=== PATIENT | male | born 1965 | race Caucasian/White ===

== ENCOUNTER 2016-09-05 11:26 | Emergency (ER) | payer OTHER ==
[~2016-09-05] VITALS: Ht 182.9 cm; Wt 87.5 kg
[~2016-09-05 11:26] MED LIST: ATV5 SL; DRGTP25 TD; NCDT21 TD; RXNS5 PO
[2016-09-05 11:30] VITALS: TEMP 36.8; Ht 182.9 cm; Wt 87.5 kg
[2016-09-05] MEDS ORDERED: VNTHFA/IN INH (11:43)
[2016-09-05] MEDS ORDERED: LORA-741 PO (11:43)
--- NOTE | 2016-09-05 12:43 | EMERGENCY ROOM VISIT NOTE ---
History Report prepared by Carlos: Francisco Canales Under the Supervision of: Dr. Kenyon Gutierrez M.D. First contact with patient: 12:18 Chief Complaint: FOOD BOLUS Stated Complaint: FOOD BOLUS/ BROCCOLI FROM YESTERDAY Nursing Triage Summary: pt to the ED via EMS from home after yesterday pt was eating broccoli around 5 pm and felt it get stuck. pt has a trach in place and stated that this has happened before and normally if he lays down he can cough it up but was unable to pt has no resp distress pt point to the area near his trach as to where the food feels stuck pt able to speak with trach in place. pt has a vibrating sound with auscultation of breath sounds History of Present Illness The patient is a 51 year old male who presents to the Emergency Room with complaints of an acute food bolus that is stuck in posterior pharynx. The patient was eating broccoli last night when he noticed that it felt like a piece was stuck in the upper portion of his throat, almost behind the nose. The patient does not feel like anything is stuck in his esophagus. He is able to drink and swallow, and is not having any trouble breathing or shortness of breath. The patient did not eat this morning because of his discomfort. 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 He has had radiation and chemotherapy treatments and is currently in remission. The patient has had issues with food boluses before, which he usually is able to clear on his own. The patient has had numerous endoscopies. The patient follows up with ENT at [facility]. He does not follow up with a [employer]. He has not been in contact with his ENT. Source of History: patient Onset: last night Position: throat (posterior pharynx) Quality: other (food bolus) Timing: other (acute) Associated Symptoms: No SOB Review of Systems See HPI for pertinent positives & negatives. A total of 10 systems reviewed and were otherwise negative. Past Medical & Surgical Medical Problems: (1) Squamous cell carcinoma of epiglottis Family History No pertinent family history Social History Smoking Status: Current Every Day Smoker Drug Use: none Housing Status: lives with family Current/Historical Medications Scheduled Albuterol Hfa (Ventolin Hfa), 2 PUFFS INH DAILY Scheduled PRN Lorazepam (Ativan), 0.5 MG PO Q6H PRN for Anxiety Allergies Coded Allergies: No Known Allergies (Unverified , 03/16/15) Physical Exam Vital Signs Date Time Temp Pulse Resp B/P Pulse Ox O2 Delivery O2 Flow Rate FiO2 09/05/16 14:55 73 16 140/92 94 Room Air 09/05/16 13:46 69 16 117/99 95 Room Air 09/05/16 11:43 70 09/05/16 11:30 36.8 70 16 141/95 98 Room Air Physical Exam GENERAL: Patient is well appearing and in minimal distress. HEENT: No acute trauma, normocephalic atraumatic, mucous membranes moist, no nasal congestion, no scleral icterus. Posterior pharyngeal erythema, no foreign body appreciated. NECK: Trach in place. Scarring and radiation romeo over the anterior neck. LUNGS: No dyspnea. Upper airway noises bilaterally. No wheeze, no rhonchi. HEART: Regular rate and rhythm. No murmurs, rubs, gallops appreciated. ABDOMEN: Soft, nontender, bowel sounds positive, no masses appreciated, no peritonitis. BACK: No midline tenderness, no CVA tenderness EXTREMITIES: Normal motion all extremities, no cyanosis, no edema. NEUROLOGIC: Alert and oriented, no acute motor or sensory deficits, no focal weakness, cranial nerves grossly intact. SKIN: No rash, no jaundice, no diaphoresis. Medical Decision & Procedures Medications Administered Medications (Trade) Dose Ordered Sig/Avila Route Start Time Stop Time Status Last Admin Dose Admin Phenylephrine HCl 2 sprays ONE ONCE NA 09/05/16 13:00 09/05/16 13:01 DC 09/05/16 13:32 2 SPRAYS Sterile Water/ Tetracaine HCl (Sterile Water Inj/Tetracaine HCl Pwd) 1300 ONCE TOP 09/05/16 13:00 09/05/16 13:01 DC 09/05/16 13:33 1 ML Benzocaine/ Butamben/ Tetracaine HCl (Cetacaine Can) 1 appln NOW STAT EXT 09/05/16 13:04 09/05/16 13:05 DC 09/05/16 13:04 1 APPLN Procedure Nasopharyngoscopy Indication: possible foreign body. Risks and benefits were explained with the usual customary discussion. A time out was taken and the correct patient and site identified. The patient's nares were anesthetized with topical Tetracaine and phenylephrine. The ACCESS LIAISON scope was inserted in the standard fashion and the nasopharynx and vallecula were without difficulty. No foreign bodies noted. Diffuse mild erythema and some secretions noted. No complications. Patient tolerated the procedure well. ED Course 1218: The patient was evaluated in room B2. A complete history and physical exam was performed. 1229: Otolaryngology paged. 1233: Discussed the case with MOISES Moreno. He notes that there is a scope in the ED that should be used by an ED physician. 1300: Sterile water / Tetracaine HCl, Phenylephrine HCl 2 sprays NA. 1304: Cetacaine Can 1 application EXT. 1322: Nasopharyngoscopy performed. Please see procedural note above. 1414: Checked on the patient. Respiratory was seeing him. 1450: The patient is feeling fine and wants to go home. He will set up follow up outpatient appointment with his ENT. Medical Decision Pleasant 51 yr old male who feels like there is foreign body in posterior upper pharynx. History of epiglottic ca s/p surgical resection, tracheostomy, radiation/chemo now in remission. Notes eating last night and since with feeling of food stuck in upper pharynx. Exam with erythema of uvula and some posterior pharyngeal erythema. Nasopharyngoscopy of bilateral nares negative for foreign body and clear to cords. No stridor and breathing well. Monitored for quite some time without issue. He is stable, breathing comfortably. Discussed abx/steroids though will hold off for now. Consults Time Called: 122 Consulting Physician: Dr. Chávez ENT. Returned Call: [phone]: Discussed the case with Dr. Chávez ENT. He notes that there is a scope in the ED that should be used by an ED physician. Impression Primary Impression: Uvulitis Additional Impression: Pharyngitis, acute Scribe Attestation The scribe's documentation has been prepared under my direction and personally reviewed by me in its entirety. I confirm that the note above accurately reflects all work, treatment, procedures, and medical decision making performed by me. Departure Information Dispostion Home / Self-Care Referrals No Doctor, Assigned (PCP) Forms HOME CARE DOCUMENTATION FORM, IMPORTANT VISIT INFORMATION Patient Instructions ED Pharyngitis Viral, My [facility] Additional Instructions Follow up with your ENT specialist. Problem Qualifiers Additional Impression: Pharyngitis, acute Pharyngitis/tonsillitis etiology: unspecified etiology Qualified Codes: J02.9 - Acute pharyngitis, unspecified
[2016-09-05] MEDS ORDERED: PHENYLEPHRINE HCL 0.5% NA SPRAY 15 ML BTL ONE (13:00)
[2016-09-05] MEDS ORDERED: TETRACAINE 4% TOPICAL SOLUTION TOP ONE ×4 (13:00)
[2016-09-05] MEDS ORDERED: BENZOCAINE/TETRACAIN/BUTAM CAN 200 APPLN/20 GM CAN EXT STA (13:04)
[2016-09-05] MEDS ORDERED: TETRACAINE 4% SOLN TOP ONE (13:30)
[2016-09-05 14:55] VITALS: BP 140/92; PULSE 73; O2SAT 94
== END 2016-09-05 14:59 | disposition home or self-care (01) ==
LOC: EDBD 11:26 → C.EDB 11:27
DX: K12.2 Cellulitis and abscess of mouth (principal); J02.9 Acute pharyngitis, unspecified; Z85.89 Personal history of malignant neoplasm of other organs and systems; F17.210 Nicotine dependence, cigarettes, uncomplicated

== ENCOUNTER 2024-04-09 11:56 | Inpatient (IN) ==
--- NOTE | 2024-04-09 12:24 | Emergency Department Note ---
Impression & Plan Acute exacerbation of chronic obstructive pulmonary disease, Hypoxia, Thrombocytopenia ED Provider Note NAME: KECIA MILLS Sr AGE: 58 SEX: M : 1965 ARRIVES VIA: Walk-In INFORMANT: Patient, ED PROVIDER(S): Regulo Nathan DO CHIEF COMPLAINT: Shortness of breath HPI: The patient is a 58-year-old male who has a history of head neck cancer who presented to the emergency department for an evaluation of shortness of breath. The patient has been noticing exertional shortness of breath over the course the last several days. He went to see his family doctor today and was sent directly to the emergency department because of hypoxia. The patient denies having any tobacco use. He has noticed some sputum production with slight blood mixed in with it. He does have a history of a trach which has been in for several years. He denies having any fever. He denies having any lower extremity swelling or pain. The patient states he has been compliant with outpatient medications. He does not normally wear oxygen at home but has it available and sometimes has to wear it at night. ROS: See above HPI for pertinent positives & negatives. A total of 10 systems reviewed and were otherwise negative. PAST MEDICAL HISTORY: See Below PAST SURGICAL HISTORY: See Below FAMILY HISTORY: See Below SOCIAL HISTORY: See Below HOME MEDICATIONS: See Below ALLERGIES: See Below VITALS: See Below PHYSICAL EXAMINATION: GENERAL: Patient is awake alert in no acute distress patient is resting comfortably and showing no signs of anxiety EYES: The conjunctivae are clear. The pupils are round and reactive. EARS, NOSE, MOUTH AND THROAT: The nose is without any evidence of any deformity. NECK: The neck is nontender and supple. RESPIRATORY: Diminished breath sounds are noted throughout. Faint wheezing was noted in both upper lung rea. There was no tachypnea or conversational dyspnea. CARDIOVASCULAR: Regular rate and rhythm noted there no murmurs rubs or gallops normal S1 normal S2. GASTROINTESTINAL: The abdomen is soft. Abdomen is nontender. MUSCULOSKELETAL/EXTREMITIES: There is no evidence of gross deformity full range of motion is noted in the hips and shoulders. SKIN: There is no obvious evidence of any rash. There are no petechiae, pallor or cyanosis noted. NEUROLOGIC: Patient is awake alert and oriented x3. MEDICAL DECISION MAKING: The patient is a 58-year-old male who has a history of head neck cancer who presented to the emergency department for an evaluation of difficulty breathing. Patient's history and physical exam appear to be consistent with COPD exacerbation. He also has a productive cough. Given his history of tracheostomy and bronchitis he was treated with IV antibiotics. He was also treated with IV steroids IV fluids and bronchodilator therapy. He was reevaluated multiple times. On reevaluation he was significantly improved but still has an oxygen requirement. I [facility] the [facility] They have agreed to evaluate the patient in the emergency department for further management and disposition. Triage Nursing notes reviewed. Prior medical records reviewed Vital Signs: reviewed and remarkable for hypoxia. Differential diagnosis: Reactive airway disease, pneumonia, pneumothorax, COPD, CHF, infections, cardiac ischemia, pulmonary embolism, musculoskeletal, gastrointestinal, as well as other pathologies. ER treatment provided: See below Diagnostics interpreted by me: ECG: EKG was obtained in the emergency department. My interpretation is normal sinus rhythm at 73 bpm. There is no ectopy. Poor R wave progression was noted. This was compared to a tracing from November 30, 2021. No changes were noted. Cardiac Monitoring: An order was placed for continuous cardiac monitoring. The monitor shows a rate of 80 bpm with sinus rhythm. Laboratory studies: As stated above and show below. Imaging studies: See below. Radiographic imaging was reviewed by myself Consultation(s): I discussed this case with Dr. Robbins who is [facility]. ED COURSE: Procedures: none Critical Care: I have personally spent greater than 45 minutes of critical care time in the direct management of this patient. This includes bedside care, interpretation of diagnostic studies, and testing, discussion with consultants, patient, and family members, and other required patient management activities. This 45 minutes is in excess of all separately billable procedures. Past Med/Surg History Problem List (Updated 04/09/24 @ 19:38 by Regulo Nathan DO) Thrombocytopenia (Acute) Hypoxia (Acute) Acute exacerbation of chronic obstructive pulmonary disease (Acute) Pneumonia Hypopharyngeal mass (Acute) Throat mass (Acute) Throat swelling (Acute) 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 Hx of fracture of ankle Lt., no sx. Hypothyroidism Tracheostomy in place D/T THROAT CANCER/TUMOR TREATED WITH CHEMO AND RADIATION (NO SURGERY REQUIRED) 6.0 SHILEY WITH INNER CANNULAS (NO OXYGEN) CANNULA CHANGED EVERY MORNING/NO SUCTION REQUIRED Depression Anxiety Chronic obstructive pulmonary disease Surgical History Hx of cholecystectomy History of esophagogastroduodenoscopy (EGD) History of surgery PEG TUBE INSERTION/REMOVAL History of vascular access device FOR CHEMO TX INSERTION/REMOVAL History of tooth extraction Family History Mother Family history of diabetes mellitus Father Family hx of colon cancer Social History Smoking Status: Former smoker Cigarettes Per Day: 10 PER DAY -advised; Second Hand Exposure: No; Do You Dip or Chew Tobacco: No; Hx Alcohol Use: Yes Alcohol type: beer and hard liquor Hx Substance Use: Yes Last Used Substance Other:: marijuana-12/20; cocaine-"a long time ago" Preferred Language: Libyan Communication Ability: Effective Bead Stringer Required: No Beliefs That Will Affect Care: None Current Living Situation: Significant Other Feels Safe at Home: Yes Safety Concerns: Feels Safe At This Time Assistive Devices: Denture - Upper, Denture - Lower and Glasses Allergies Allergies Allergy/AdvReac Type Severity Reaction Status Date / Time No Known Allergies Allergy Verified 04/09/24 14:00 Home Meds Home Medications Medication Instructions Recorded Confirmed albuterol sulfate 90 mcg/actuation 2 puff inhalation QID PRN SHORT OF 12/30/18 04/09/24 aerosol inhaler (Ventolin HFA) BREATH levothyroxine 137 mcg tablet 137 mcg PO QAM 12/30/18 04/09/24 albuterol sulfate 1.25 mg/3 mL 1.25 mg inhalation Q4H PRN 05/24/22 04/09/24 solution for nebulization Shortness Of Breath Or Wheezing buspirone 5 mg tablet 5 mg PO BID 05/24/22 04/09/24 citalopram 20 mg tablet 20 mg PO QAM 05/24/22 04/09/24 fluticasone 500 mcg-salmeterol 50 1 inh inhalation BID 05/24/22 04/09/24 mcg/dose blistr powdr for inhalation fluticasone propionate 50 2 spray intranasal QAM 05/24/22 04/09/24 mcg/actuation nasal spray,suspension hydroxychloroquine 200 mg tablet 400 mg PO HS 05/24/22 04/09/24 (Plaquenil) hydroxyzine HCl 50 mg tablet 50 mg PO BID PRN Anxiety 05/24/22 04/09/24 ondansetron HCl 4 mg tablet 4 mg PO Q8H PRN Nausea 05/24/22 04/09/24 furosemide 20 mg tablet 20 mg PO BID 04/09/24 04/09/24 spironolactone 25 mg tablet 12.5 mg PO QAM 04/09/24 04/09/24 Previous Rx's Medication Instructions Recorded oxycodone-acetaminophen 5 mg-325 1 tab PO Q6H PRN pain #14 tabs 01/15/ mg tablet (Percocet) Results & Data (ED) Vital Signs Vital Signs - 24 hr 04/09/24 11:58 04/09/24 12:50 04/09/24 12:51 Temperature 36.5 C Temperature Source Temporal Artery Scan Pulse Rate 80 Pulse Rate from SpO2 Sensor Respiratory Rate 20 22 Respiratory Effort / Characteristics Non-Labored Spontaneous Non-Labored Spontaneous Respiratory Depth Normal Normal Blood Pressure 129/63 Blood Pressure Mean 85 Blood Pressure Position Sitting Pulse Oximetry 83 L 91 Oxygen Delivery Method Room Air Nasal Cannula Oxygen Flow Rate 3.5 Sepsis Recent Fever Within 48 Hours No Sepsis New/Unexplained Change in Mental Status No Sepsis Action Taken by Nursing No Action Required 04/09/24 12:51 04/09/24 13:00 04/09/24 13:05 Temperature Temperature Source Pulse Rate 72 74 Pulse Rate from SpO2 Sensor 74 Respiratory Rate 18 Respiratory Effort / Characteristics Respiratory Depth Blood Pressure 114/72 Blood Pressure Mean 97 Blood Pressure Position Pulse Oximetry 91 Oxygen Delivery Method Oxygen Flow Rate Sepsis Recent Fever Within 48 Hours Sepsis New/Unexplained Change in Mental Status Sepsis Action Taken by Nursing 04/09/24 13:29 04/09/24 13:33 04/09/24 13:51 Temperature Temperature Source Pulse Rate 71 72 72 Pulse Rate from SpO2 Sensor 71 72 72 Respiratory Rate 21 19 14 Respiratory Effort / Characteristics Respiratory Depth Blood Pressure Blood Pressure Mean Blood Pressure Position Pulse Oximetry 95 95 96 Oxygen Delivery Method Oxygen Flow Rate Sepsis Recent Fever Within 48 Hours Sepsis New/Unexplained Change in Mental Status Sepsis Action Taken by Nursing 04/09/24 14:06 04/09/24 14:12 04/09/24 14:21 Temperature Temperature Source Pulse Rate 71 74 75 Pulse Rate from SpO2 Sensor 72 75 75 Respiratory Rate 16 14 23 Respiratory Effort / Characteristics Respiratory Depth Blood Pressure Blood Pressure Mean Blood Pressure Position Pulse Oximetry 94 95 94 Oxygen Delivery Method Oxygen Flow Rate Sepsis Recent Fever Within 48 Hours Sepsis New/Unexplained Change in Mental Status Sepsis Action Taken by Nursing 04/09/24 14:30 04/09/24 14:42 Temperature Temperature Source Pulse Rate 73 76 Pulse Rate from SpO2 Sensor 73 76 Respiratory Rate 18 Respiratory Effort / Characteristics Respiratory Depth Blood Pressure Blood Pressure Mean Blood Pressure Position Pulse Oximetry 94 92 Oxygen Delivery Method Nasal Cannula Oxygen Flow Rate 2 Sepsis Recent Fever Within 48 Hours Sepsis New/Unexplained Change in Mental Status Sepsis Action Taken by Custodial Medications Current Medication List: was personally reviewed by me Laboratory Data Attestation: I reviewed the patient's lab results. 04/09/24 12:44 04/09/24 12:44 Lab Results 04/09/24 04/09/24 Range/Units 12:44 12:45 WBC 7.69 (4.8-10.8) K/ul RBC 5.37 (4.70-6.10) M/uL Hgb 13.9 L (14.0-18.0) g/dl Hct 43.8 (42.0-52.0) % MCV 81.6 (80.0-100.0) fL MCH 25.9 (25.0-34.0) pg MCHC 31.7 L (32.0-36.0) g/dL RDW Std Deviation 53.9 H (36.4-46.3) fL RDW Coeff of Korin 18.9 H (11.5-14.5) % Plt Count 114 L (130-400) K/uL MPV 11.2 (9.4-12.4) fL Immature Gran % (Auto) 0.3 % Neut % (Auto) 80.5 % Lymph % (Auto) 6.2 % Ralls % (Auto) 10.9 % Eos % (Auto) 1.4 % Baso % (Auto) 0.7 % Neut # (Auto) 6.19 (1.40-6.50) K/uL Lymph # (Auto) 0.48 L (1.20-3.40) K/uL Ralls # (Auto) 0.84 H (0.11-0.59) K/uL Eos # (Auto) 0.11 (0.00-0.50) K/uL Baso # (Auto) 0.05 (0.00-0.20) K/uL Immature Gran # (Auto) 0.02 (0.01-0.20) K/uL PT 12.1 H (9.0-12.0) Seconds INR 1.1 (0.9-1.1) APTT 30 (21-31) Seconds PTT Ratio 1.1 VBG pH 7.44 H (7.36-7.41) VBG pCO2 50 (38-50) mmHg VBG pO2 33 mmHg VBG HCO3 34 mmol/L VBG O2 Saturation < 60.0 % VBG Base Excess 8.3 mEq/L Sodium 136 (136-145) mmol/L Potassium 3.7 (3.5-5.1) mmol/L Chloride 95 L (98-107) mmol/L Carbon Dioxide 32 (21-32) mmol/L Anion Gap 9 (3-11) BUN 9 (6-23) mg/dl Creatinine 0.98 (0.6-1.4) mg/dl Est Cr Clr Drug Dosing 102.5 ml/min eGFR 90.50 BUN/Creatinine Ratio 9.2 L (10-20) Glucose 98 (70-99(Fasting)) mg/dl Lactate 0.9 (0.4-2.0) mmol/L Calcium 9.4 (8.6-10.3) mg/dl Magnesium 1.6 L (1.7-2.4) mg/dl Total Bilirubin 1.2 H (0.2-1.0) mg/dl Direct Bilirubin 0.4 H (0-0.2) mg/dl AST 15 (13-39) U/L ALT 6 L (7-52) U/L Alkaline Phosphatase 265 H (34-104) U/L Troponin I High Sens 3.5 (0-20) pg/ml Total Protein 8.1 (6.0-8.3) gm/dl Albumin 4.1 (3.4-5.0) gm/dl Procalcitonin 0.10 (0-0.5) ng/ml Adenovirus (PCR) Not Detected (NotDetected) B. pertussis DNA (PCR) Not Detected (NotDetected) B.parapertussis DNA PCR Not Detected (NotDetected) C. pneumoniae DNA (PCR) Not Detected (NotDetected) Coronavirus OC43 (PCR) Not Detected (NotDetected) Coronavirus HKU1 (PCR) Not Detected (NotDetected) Coronavirus 229E (PCR) Not Detected (NotDetected) SARS-CoV-2 (PCR) Not Detected (NotDetected) Coronavirus NL63 (PCR) Not Detected (NotDetected) Human Metapneumovir PCR Not Detected (NotDetected) Influenza Type A (PCR) Not Detected (NotDetected) Influenza Type B (PCR) Not Detected (NotDetected) M. pneumoniae (PCR) Not Detected (NotDetected) Parainfluenza 1 (PCR) Not Detected (NotDetected) Parainfluenza 2 (PCR) Not Detected (NotDetected) Parainfluenza 3 (PCR) Not Detected (NotDetected) Parainfluenza 4 (PCR) Not Detected (NotDetected) RSV (PCR) Not Detected (NotDetected) Entero/Rhino (PCR) Not Detected (NotDetected) Administered Medications Magnesium Sulfate/Dextrose (Magnesium Sulfate / D5w) 1 gm in 100 mls @ 50 mls/hr IV Q2H RENATA Stop: 04/09/24 20:44 Last Admin: 04/09/24 18:42 Dose: 50 mls/hr Documented By: MLK Discontinued Medications Albuterol (Albut/Ipratrop 3mg/0.5mg Neb 3 Ml Vial) 3 ml NEB NOW STA; Protocol Stop: 04/09/24 12:18 Last Admin: 04/09/24 12:46 Dose: 3 ml Documented By: BCN Dexamethasone Sodium Phosphate (DexamethasonePf 10 Mg/Ml Vial) 10 mg IV NOW ONE Stop: 04/09/24 12:18 Last Admin: 04/09/24 12:46 Dose: 10 mg Documented By: RADHA Sodium Chloride (Nss) 1,000 mls @ 999 mls/hr IV .Q1H1M ONE Stop: 04/09/24 13:22 Last Infusion: 04/09/24 13:48 Dose: Infused Documented By: Admin: 04/09/24 12:46 Dose: 999 mls/hr Documented By: RADHA Ceftriaxone Sodium (Rocephin) 2,000 mg in 50 mls @ 100 mls/hr IV NOW STA Stop: 04/09/24 14:42 Last Infusion: 04/09/24 15:19 Dose: Infused Documented By: Admin: 04/09/24 14:35 Dose: 100 mls/hr Documented By: RADHA Doxycycline Hyclate 100 mg/ (Dextrose) 100 mls @ 50 mls/hr IV NOW STA Stop: 04/09/24 18:38 Last Admin: 04/09/24 18:41 Dose: 50 mls/hr Documented By: ZULAY Imaging Data Attestation: I personally reviewed and interpreted this imaging study as follows: My Impression: 1 view x-ray was obtained in the emergency department. My interpretation is cardiomegaly, final report below. Radiologist's Impression: Chest X-Ray 04/09/24 12:17 XR chest 1V portable HISTORY: 58 years-old Male Sepsis COMPARISON: 03/25/2015 TECHNIQUE: AP view of the chest FINDINGS: Interval removal of the right-sided PICC. Stable positioning of the tracheostomy cannula. Mild cardiomegaly. Pulmonary vascular congestion with interstitial coarsening. Lateral right mid lung interstitial opacities. There is a persistent layering right pleural effusion with right basilar predominant consolidation. Resolution of the left pleural effusion with improved left basilar aeration. Bones appear grossly intact. IMPRESSION: 1. Resolution of the previously noted left pleural effusion with improved left basilar consolidation. 2. Cardiomegaly with pulmonary vascular congestion. 3. Persistent layering right pleural effusion with right basilar consolidation. ACT 112: Negative or not required by law. The above report was generated using voice recognition software. It may contain grammatical, syntax or spelling errors. Electronically signed by: Ambrocio Watkins M.D. 04/09/2024 1:10 PM Discharge Plan Visit Data Chief Complaint: Referred by Doctor Stated Complaint: LOW OXYGEN LEVELS ED Provider: Regulo Nathan Discharge Problem: Acute exacerbation of chronic obstructive pulmonary disease, Hypoxia, Thrombocytopenia Patient Disposition: Admitted As Inpatient Discharge Instructions Interventions: ED Discharge Assessment Last Done: 04/09/24 17:05
[2024-04-09] MEDS: dexAMETHasone**PF** 10 MG/ML VIAL IV ONE (12:46)
[2024-04-09] MEDS: ALBUT/IPRATROP 3MG/0.5MG NEB 3 ML VIAL NEB STA (12:46)
[2024-04-09] MEDS: SODIUM CHLORIDE 0.9% 1,000 ML IV ONE (12:46)
[2024-04-09 12:53] LABS: Base Excess VBG 8.3 mEq/L; HCO3 VBG 34 mmol/L; Oxygen Saturation VBG < 60.0 %; PCO2 VBG 50 mmHg (38-50); PO2 VBG 33 mmHg; pH VBG 7.44 (7.36-7.41)
--- NOTE | 2024-04-09 13:11 | XRay Report ---
XR chest 1V portable HISTORY: 58 years-old Male Sepsis COMPARISON: 03/25/2015 TECHNIQUE: AP view of the chest FINDINGS: Interval removal of the right-sided PICC. Stable positioning of the tracheostomy cannula. Mild cardio megaly. Pulmonary vascular congestion with interstitial coarsening. Lateral right mid lung interstiti al opacities. There is a persistent layering right pleural effusion with right basilar predominant co nsolidation. Resolution of the left pleural effusion with improved left basilar aeration. Bones appea r grossly intact. IMPRESSION: 1. Resolution of the previously noted left pleural effusion with improved left basilar consolidation. 2. Cardiomegaly with pulmonary vascular congestion. 3. Persistent layering right pleural effusion with right basilar consolidation. ACT 112: Negative or not required by law. The above report was generated using voice recognition software. It may contain grammatical, syntax o r spelling errors. Electronically signed by: Ambrocio Watkins M.D. 04/09/2024 1:10 PM
[2024-04-09 13:27] LABS: Basophils # (auto) 0.05 K/uL (0.00-0.20); Basophils % (auto) 0.7 %; Eosinophils # (auto) 0.11 K/uL (0.00-0.50); Eosinophils % (auto) 1.4 %; Hematocrit (blood only) 43.8 % (42.0-52.0); Hemoglobin 13.9 g/dl (14.0-18.0); Immature Granulocytes # (auto) 0.02 K/uL (0.01-0.20); Immature Granulocytes % (auto) 0.3 %; Lymphocytes # (auto) 0.48 K/uL (1.20-3.40); Lymphocytes % (auto) 6.2 %; Mean Corpuscular Hemoglobin 25.9 pg (25.0-34.0); Mean Corpuscular Hgb Conc 31.7 g/dL (32.0-36.0); Mean Corpuscular Volume 81.6 fL (80.0-100.0); Mean Platelet Volume 11.2 fL (9.4-12.4); Monocytes # (auto) 0.84 K/uL (0.11-0.59); Monocytes % (auto) 10.9 %; Neutrophils # (auto) 6.19 K/uL (1.40-6.50); Neutrophils % (auto) 80.5 %; Platelet Count 114 K/uL (130-400); RDW Coefficient of Variation 18.9 % (11.5-14.5); RDW Standard Deviation 53.9 fL (36.4-46.3); Red Blood Count 5.37 M/uL (4.70-6.10); White Blood Count 7.69 K/ul (4.8-10.8)
[2024-04-09 13:32] LABS: Albumin Level 4.1 gm/dl (3.4-5.0); BUN Creatinine Ratio 9.2 (10-20); Bilirubin Direct 0.4 mg/dl (0-0.2); Bilirubin,Total 1.2 mg/dl (0.2-1.0); Calcium 9.4 mg/dl (8.6-10.3); Creatinine Clr Calc Pharmacy 102.5 ml/min; Magnesium 1.6 mg/dl (1.7-2.4); Potassium 3.7 mmol/L (3.5-5.1); Total Protein 8.1 gm/dl (6.0-8.3)
[2024-04-09 13:37] LABS: Troponin I High Sensitivity 3.5 pg/ml (0-20)
[2024-04-09 13:43] LABS: INR 1.1 (0.9-1.1); Partial Thromboplastin Ratio 1.1; Partial Thromboplastin Time 30 Seconds (21-31); Prothrombin Time 12.1 Seconds (9.0-12.0)
[2024-04-09 13:56] LABS: Adenovirus PCR Not Detected (NotDetected); Bordetella parapertussis PCR Not Detected (NotDetected); Bordetella pertussis PCR Not Detected (NotDetected); Chlamydia pneumoniae PCR Not Detected (NotDetected); Coronavirus 229E PCR Not Detected (NotDetected); Coronavirus CoV-2 (COVID19)PCR Not Detected (NotDetected); Coronavirus HKU1 PCR Not Detected (NotDetected); Coronavirus NL63 PCR Not Detected (NotDetected); Coronavirus OC43PCR Not Detected (NotDetected); Human Metapneumovirus PCR Not Detected (NotDetected); Influenza A PCR Not Detected (NotDetected); Influenza B PCR Not Detected (NotDetected); Mycoplasma pneumoniae PCR Not Detected (NotDetected); Parainfluenza Virus 1 PCR Not Detected (NotDetected); Parainfluenza Virus 2 PCR Not Detected (NotDetected); Parainfluenza Virus 3 PCR Not Detected (NotDetected); Parainfluenza Virus 4 PCR Not Detected (NotDetected); Respiratory Syncytial VirusPCR Not Detected (NotDetected); Rhinovirus/Enterovirus PCR Not Detected (NotDetected)
[2024-04-09] MEDS: cefTRIAXone SODIUM 2,000 MG/50 ML BAG IV STA (14:35)
--- NOTE | 2024-04-09 14:42 | Electrocardiogram Report ---
Test Reason : Blood Pressure : */* mmHG Vent. Rate : 73 BPM Atrial Rate : 73 BPM P-R Int : 172 ms QRS Dur : 108 ms QT Int : 412 ms P-R-T Axes : 42 67 34 degrees QTcB Int : 453 ms Normal sinus rhythm Possible Old Anteroseptal infarct Abnormal ECG No previous ECGs available Confirmed by Raúl Sandra ([id number]) on 04/09/2024 2:42:20 PM Referred By: REFERRED SELF Confirmed By: Raúl Sandra
[2024-04-09] MEDS ORDERED: ONDANSETRON INJ 2 MG/ML 2 ML VIAL IV PRN (15:07)
[2024-04-09] MEDS ORDERED: MAGNESIUM HYDROXIDE SUSP 30 ML UDC PO PRN (15:07)
[2024-04-09] MEDS ORDERED: ALUMINUM/MAGNESIUM SUSP 30 ML UDC PO PRN (15:07)
[2024-04-09] MEDS ORDERED: POLYETHYLENE (MIRALAX) 17 GM PACK PO PRN (15:07)
[2024-04-09] MEDS ORDERED: ALBUTEROL HFA 8 GM INHALER INH PRN (15:25)
--- NOTE | 2024-04-09 15:26 | History & Physical Report ---
Date of Service April 09, 2024 Assessment & Plan (1) Pneumonia: Plan Likely right lower lobe pneumonia Right pleural effusion Possible mild COPD exacerbation Patient comes in with cough with greenish blood-tinged sputum and associated shortness of breath for about a week time, admitting CXR with RLL consolidation and right pleural effusion. Patient needing oxygen continuously lately, generally uses on and off at his baseline. Received Rocephin in the ED, will continue Rocephin, add doxycycline and probiotic. Add prednisone 40 Mg daily for 5 days from tomorrow, received dexamethasone in the ED. Respiratory BioFire negative. send sputum cx. follow admitting bl cx. Consult pulmonology Patient will need repeat chest imaging in about 6 weeks time to document resolution of pneumonia. Hypomagnesemia: Magnesium of 1.6 at presentation, replete total of 2 g magnesium today. Abnormal LFT, likely chronic, repeat LFT in AM. Other chronic medical conditions: Continue with/resume home meds as and when able. DVT prophylaxis: Heparin subcu DNI/DNI History of Present Illness Chief Complaint: Cough productive of greenish sputum, blood-tinged sputum Primary Care Provider: Eder Mittal MD 58-year-old male with PMH of head and neck cancer status post radiation and chemo/tracheostomy status, COPD, hydropneumothorax, hypothyroidism, alcoholic cirrhosis of liver without ascites, scleroderma, major depressive disorder, AMEYA presented to the ED with complaint of shortness of breath for 5 to 7 days, has been gradually worsening, does not generally need oxygen at home but has been utilizing oxygen continuously lately, associated with cough for about same duration productive of greenish blood-tinged sputum. Patient denies choking on food, denies sore throat. Patient denies fever/chest pain/palpitation/belly pain/nausea/vomiting/headache/dizziness. Patient reports weakness. Patient reports no acute changes in his appetite and bladder or bladder habits. Patient reports quitting smoking 10 years ago, reports drinking 3 beers a day [reports last drink was about 6-day ago], reports using/smoking marijuana daily. Medications reviewed with the patient in detail at bedside. Plan of care discussed with the patient in detail, he voiced understanding. DNR/DNI as per my discussion with the patient. Allergies Allergy/AdvReac Type Severity Reaction Status Date / Time No Known Allergies Allergy Verified 04/09/24 14:00 Home Medications Medication Instructions Recorded Confirmed Type albuterol sulfate 90 mcg/actuation 2 puff inhalation QID PRN SHORT OF 12/30/18 04/09/24 History aerosol inhaler (Ventolin HFA) BREATH levothyroxine 137 mcg tablet 137 mcg PO QAM 12/30/18 04/09/24 History oxycodone-acetaminophen 5 mg-325 1 tab PO Q6H PRN pain #14 tabs 01/15/22 04/09/24 Rx mg tablet (Percocet) albuterol sulfate 1.25 mg/3 mL 1.25 mg inhalation Q4H PRN 05/24/22 04/09/24 History solution for nebulization Shortness Of Breath Or Wheezing buspirone 5 mg tablet 5 mg PO BID 05/24/22 04/09/24 History citalopram 20 mg tablet 20 mg PO QAM 05/24/22 04/09/24 History fluticasone 500 mcg-salmeterol 50 1 inh inhalation BID 05/24/22 04/09/24 History mcg/dose blistr powdr for inhalation fluticasone propionate 50 2 spray intranasal QAM 05/24/22 04/09/24 History mcg/actuation nasal spray,suspension hydroxychloroquine 200 mg tablet 400 mg PO HS 05/24/22 04/09/24 History (Plaquenil) hydroxyzine HCl 50 mg tablet 50 mg PO BID PRN Anxiety 05/24/22 04/09/24 History ondansetron HCl 4 mg tablet 4 mg PO Q8H PRN Nausea 05/24/22 04/09/24 History furosemide 20 mg tablet 20 mg PO BID 04/09/24 04/09/24 History spironolactone 25 mg tablet 12.5 mg PO QAM 04/09/24 04/09/24 History Past Med/Surg History Problem List (Updated 04/09/24 @ 15:28 by Ariella Robbins MD) Pneumonia Hypopharyngeal mass (Acute) Throat mass (Acute) Throat swelling (Acute) 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 Hx of fracture of ankle Lt., no sx. Hypothyroidism Tracheostomy in place D/T THROAT CANCER/TUMOR TREATED WITH CHEMO AND RADIATION (NO SURGERY REQUIRED) 6.0 SHILEY WITH INNER CANNULAS (NO OXYGEN) CANNULA CHANGED EVERY MORNING/NO SUCTION REQUIRED Depression Anxiety Chronic obstructive pulmonary disease Surgical History Hx of cholecystectomy History of esophagogastroduodenoscopy (EGD) History of surgery PEG TUBE INSERTION/REMOVAL History of vascular access device FOR CHEMO TX INSERTION/REMOVAL History of tooth extraction Family History Mother Family history of diabetes mellitus Father Family hx of colon cancer Social History Smoking Status: Former smoker Cigarettes Per Day: 10 PER DAY -advised; Second Hand Exposure: No; Do You Dip or Chew Tobacco: No; Hx Alcohol Use: Yes (7 drinks per day) Alcohol type: beer and hard liquor Hx Substance Use: Yes (smokes marijuana daily- advised) Last Used Substance Other:: marijuana-12/20; cocaine-"a long time ago" Preferred Language: [place] Zealander Communication Ability: Effective Biscuit Machine Operator Required: No Beliefs That Will Affect Care: None Current Living Situation: Spouse and Significant Other Feels Safe at Home: Yes Assistive Devices: Denture - Upper, Denture - Lower and Glasses Review of Systems Review of Systems: Negative otherwise mentioned in HPI. Physical Exam Physical Exam: GENERAL: Alert and oriented x3. NAD, on 2L NC O2, HEENT: No pallor, no icterus. Pupils equal, round and reactive to light. Oral mucosa moist. Trach collar in place. NECK: No JVD, no neck masses. HEART: S1 and S2 heard. Regular rate and rhythm. No murmur, no gallop. RESPIRATORY SYSTEM: Normal AP diameter. No accessory muscle use. No wheezing, occasional rhonci b/l, rll crackles. ABDOMEN: Soft, bowel sounds present, nontender, no distention. CENTRAL NERVOUS SYSTEM: No facial droop. Speech is clear. Obeys simple commands. Moves extremities. EXTREMITIES: No edema, no erythema seen. Results & Data Results & Data Vital Signs (Past 12 Hours) Vital Signs Temp Pulse Resp BP Pulse Ox O2 Del Method O2 Flow Rate 04/09/24 14:42 76 92 Nasal Cannula 2 04/09/24 14:30 73 18 94 04/09/24 14:21 75 23 94 04/09/24 14:12 74 14 95 04/09/24 14:06 71 16 94 04/09/24 13:51 72 14 96 04/09/24 13:33 72 19 95 04/09/24 13:29 71 21 95 04/09/24 13:05 74 18 91 04/09/24 13:00 114/72 04/09/24 12:51 72 04/09/24 12:51 22 04/09/24 12:50 91 Nasal Cannula 3.5 04/09/24 11:58 36.5 C 80 20 129/63 83 L Room Air
[2024-04-09] MEDS ORDERED: cefTRIAXone SODIUM 2,000 MG/50 ML BAG IV STA (16:38)
[2024-04-09] MEDS ORDERED: ALBUTEROL 0.083% NEBU SOLN 3 ML VIAL INH PRN (16:45)
[2024-04-09] MEDS: DOXYCYCLINE HYCLATE 100 MG in DEXTROSE 5% MINI-B 100 ML IV STA (18:41)
[2024-04-09] MEDS: MAGNESIUM SULFATE / D5W 1 GM/100 ML BAG IV SCH (18:42)
[2024-04-09] MEDS: FLUTICASONE/VILANTEROL 100/25MCG 14 PUFFS/INHALER INH SCH (19:37)
[2024-04-09] MEDS: oxyCODONE/ACETAMINOPHEN 5mg/325mg TAB PO PRN (19:52)
[2024-04-09] MEDS: FUROSEMIDE 20 MG TAB PO SCH (20:42)
[2024-04-09] MEDS: HYDROXYCHLOROQUINE SULFATE 200 MG TAB PO SCH (20:42)
[2024-04-09] MEDS: busPIRone 5 MG TAB PO SCH (20:42)
[2024-04-09 21:50] LABS: Appearance Urine Clear (Clear); Bacteria Urine Automated None Seen (None Seen); Bilirubin Urine Negative (Negative); Blood Urine Negative (Negative); Cast Urine Automated 0-2 /lpf (0-2); Color Urine Yellow; Epithelial Cell Urine Auto 0-2 /hpf (0-2); Glucose Urine UA Negative (Negative); Ketones Urine Trace (Negative); Leukocyte Esterase Urine Negative (Negative); Nitrite Urine Negative (Negative); Protein Urine Trace (Negative); RBC Urine Automated 0-2 /hpf (0-2); Specific Gravity Urine 1.016 (1.000-1.030); Urobilinogen Urine Negative (Negative); WBC Urine Automated 0-5 /hpf (0-5)
--- OUTSIDE RECORDS SUMMARY | 2024-04-10 03:29 | External Medical Summary | Summary of Care ---
Author Name Unknown Organization [facility] Address [address] [place] [address] Phone [phone] Care Team Providers Care Finishing Room Operator Name Role Phone Eder Mittal MD Primary Care Provide r Reason for Visit * Reason Comments eRx-Medication Refill Encounter Details Date Type Department Care Team (Late st Contact Info) Description 03/20/2024 Refill Family Medicine [address] [place] [id number] Eder Mittal MD [address] [place] [address] [place] [id number] Allergies No known active allergiesdocumented as of this encounter (statuses as of 03/23/2024) Medications Medication Sig Dispensed Refills Start Date End Date Status albuterol HFA (PROAIR HFA) 108 (90 BASE) MCG/ACT inhaler Inhale 2 Puffs by mouth every 4 hours as needed for Dyspnea. 1 Inhaler 11 09/19/19 19 Active AMBULATORY MISCELLANEOUS MEDICATION 6.0 Shiley non fenestrated inner cannulas 30 Units 11 09/19/19 19 Active Misc. Devices 14 Fr suction tubing 20 Each 6 04/06/20 21 Active Misc. DevicesIndications :Malignant neoplasm of larynx (HCC),Carcinoma of epiglottis (HCC) 6.0 shiley DCFS inner cannulas 30 Each 5 04/06/20 21 Active Misc. Devices Shiley 6-0 DCFS uncuffed tracheotomy tube 1 Each 4 04/06/20 Active Misc. Devices velcro trach ties 10 Each 4 04/06/20 Active Misc. Devices Inner cannulas for trach 30 Each 3 04/06/20 Active Misc. Devices Passy Baylee Valve 2 Each 3 04/06/20 Active Misc. Devices 6.0 shiley non fenestrated inner cannulas 30 Each 6 04/06/20 Active Misc. Devices Trach cleaning kit 8 Each 6 04/06/20 Active Misc. Devices Sig: Modudose 0.9% Sodium Chloride Solution, CHCF, 5 mL, ampules Disp 1 Box of 100 each for trach care Class: Normal 1 Each 5 04/06/20 Active Misc. Devices Cool mist humidification 1 Each 04/06/20 21 Active Albuterol Sulfate 1.25 MG/3ML Inhalation Nebulization SolutionIndication s:COPD, mild (HCC) Inhale 1.25 mg via nebulizer every 4 hours as needed for Wheezing. 100 mL 1 06/21/20 22 Active Fluticasone Propionate 50 MCG/ACT Nasal Suspension (Flonase)Indicatio ns:Sinus pain ADMINISTER 2 SPRAYS INTO EACH NOSTRIL EVERY DAY 48 mL 1 07/12/19 23 Active oxygen IN GAS Use 2 L/min(Oxygen) as directed. 10/21/19 23 Active Ventolin HFA 108 (90 Base) MCG/ACT Inhalation Aerosol SolutionIndication s:COPD, mild (HCC) INHALE 2 PUFFS BY MOUTH IN THE MORNING, AT NOON, IN THE EVENING, AND BEFORE BEDTIME 18 g 5 03/28/20 23 Active Omeprazole 40 MG Oral Capsule Delayed Release (PriLOSEC)Indicati ons:Gastroesophage al reflux disease without esophagitis TAKE 1 CAPSULE BY MOUTH EVERY DAY IN THE MORNING 90 Capsule 2 07/13/19 24 Active hydrOXYzine HCl 50 MG Oral TabletIndications: AMEYA (generalized anxiety disorder),Insomnia , unspecified type TAKE BY MOUTH 1 TABLET 2 TIMES A DAY NEEDED FOR ANXIETY OR OTHER (AND SLEEP). 180 Tablet 2 08/05/19 24 Active Spironolactone 25 MG Oral Tablet (Aldactone) Take 0.5 Tablets by mouth in the morning. 30 Tablet 5 08/27/19 24 Active Ondansetron HCl 4 MG Oral Tablet (Zofran)Indication s:Nausea,Alcohol withdrawal syndrome without complication (HCC) TAKE 1 TABLET BY MOUTH EVERY 8 HOURS NEEDED FOR NAUSEA 40 Tablet 09/03/19 24 Active busPIRone HCl 5 MG Oral Tablet (Buspar)Indication s:AMEYA (generalized anxiety disorder),Major depressive disorder with single episode, in remission (HCC) TAKE 1 TABLET BY MOUTH IN THE MORNING AND BEFORE BEDTIME 180 Tablet 1 11/04/19 24 Active Citalopram Hydrobromide 20 MG Oral Tablet (CeleXA)Indication s:AMEYA (generalized anxiety disorder),Major depressive disorder with single episode, in remission (HCC) TAKE 1 TABLET BY MOUTH EVERY DAY IN THE MORNING 90 Tablet 1 11/04/19 24 Active Furosemide 20 MG Oral Tablet (Lasix)Indications :Recurrent pleural effusion TAKE 1 TABLET BY MOUTH IN THE MORNING AND IN THE EVENING 180 Tablet 1 11/04/19 24 Active Hydroxychloroquine Sulfate 200 MG Oral Tablet (Plaquenil) TAKE 1 TABLET BY MOUTH IN THE MORNING AND IN THE EVENING 180 Tablet 1 01/17/20 24 Active traZODone HCl 50 MG Oral Tablet (Desyrel)Indicatio ns:Other insomnia Take 1 Tablet by mouth at bedtime. 90 Tablet 1 02/17/20 24 Active Levothyroxine Sodium 137 MCG Oral TabletIndications: Acquired hypothyroidism Take 1 Tablet by mouth daily first thing in the morning. (at least 30 min prior to breakfast or other meds) 90 Tablet 3 03/04/20 24 Active Breo Ellipta 200-25 MCG/ACT Inhalation Aerosol Powder Breath Activated (fluticasone furoate-vilanterol ) INHALE 1 PUFF BY MOUTH IN THE MORNING 180 Each 1 03/23/20 24 Active Breo Ellipta 200-25 MCG/ACT Inhalation Aerosol Powder Breath Activated (fluticasone furoate-vilanterol ) INHALE 1 PUFF BY MOUTH IN THE MORNING 180 Each 1 06/25/19 24 024 Discontinued documented as of this encounter (statuses as of 03/23/2024) Active Problems Problem Noted Date Diagnosed Date COPD, group D, by GOLD 2017 classification 02/04 Overview: Per COPD GOLD Classification Alcohol withdrawal syndrome without complication 10/24/2022 History of ETOH abuse 10/11/2022 Hyponatremia 10/06/2022 Alcoholic cirrhosis of liver without ascites Thrombocytopenia 10/05/2022 Hydropneumothorax 09/17/2022 Scleroderma 03/29/2022 S/P cholecystectomy 02/02/2022 Anxiety 02/02/2022 Acquired hypothyroidism 12/22/2021 S/P radiation therapy 12/22/2021 Tracheostomy status 02/23/2021 Alcohol abuse 04/28/2020 AMEYA (generalized anxiety disorder) 07/19/2017 Erythrocytosis 06/27/2017 Major depressive disorder with single episode, i n remission 05/10/2017 Overview: 03/10 start sertraline Greater trochanteric bursitis, right 05/10/2017 Elevated hemoglobin 03/22/2017 Encounter for antineoplastic chemotherapy 2014 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: T4a, N2c, M0 - Unsigned Overview: well differentiated carcinoma epiglottis Tobacco use disorder documented as of this encounter (statuses as of 03/23/2024) Resolved Problems Problem Noted Date Diagnosed Date Resolved Date Air leak 10/11/2022 10/12/2022 Atelectasis of right lung 10/11/2022 Subcutaneous emphysema 10/04/202210/24 Pneumothorax on right 10/03/20222022 Hyperkalemia 10/03/2022 10/04/[address] 10/02/2022 04/23/20 23 COPD, group B, by GOLD 2017 classification 06/04/2022 02/07/2023 Overview: Per COPD GOLD Classification COPD, mild 12/22/2021 06/07/2022 Overview: Per COPD GOLD Classification Well adult exam 03/22/2017 04/23/2023 Overview: NEEDS Pcv23/tdap Stress reaction 03/30/2015 03/22/2017 Tracheostomy status 03/30/2015 04/28/20 20 documented as of this encounter (statuses as of 03/23/2024) Immunizations Name Administration Dates Next Due COVID-19 mRNA, LNP-s, No Pre serve, 2-Dose Series (VISUALPLANT) 05/16/2021,03/07/2021 COVID-19, MRNA-LNP, 23-24, P F, 30 MCG/0.3 mL, 12 YRS AND ABOVE, IM (PFIZER-Comirnaty) 04/23/2023 Seasonal Influenza, PF, 6 M & above, IM , (FluLaval or Fluzone) 04/23/2023,04/25/2022,02/23/2021, 0 20,03/22/2017 documented as of this encounter Social History Tobacco Use Types Packs/Day Years Used Date Smoking Tobacco: Former Cigarettes 2 38.2 S tarted: 1992 Smokeless Tobacco: Former Comments:09/17/22 currently smoking 1 ppd Alcohol Use Standard Drinks/Week Comments Not Currently 10 (1 standard drink = 0.6 oz pu re alcohol) AUDIT-C Answer Date Recorded Frequency of Alcohol Consumption 4 or more times a week 04/28/2020 Average Number of Drinks 10 or more 020 Frequency of Binge Drinking Not asked 10/2019 PHQ-2 Answer Date Recorded PHQ-2 Score -1 04/26/2018 Sex and Gender Information Value Date Recorded Sex Assigned at Not on file Gender Identity Not on file Sexual Orientation Not on file Job Start Date Occupation Industry Not on file Not on file Not on file documented as of this encounter Functional Status Functional Status Response Date of Assess ment Are you deaf or do you have serious difficulty h earing? No 10/11/2022 Are you blind or do you have serious difficulty seeing, even when wearing glasses? No 10/11/2022 Do you have serious difficul ty walking or climbing stairs? (5 years old or older) No 10/11/2022 Do you have difficulty dress ing or bathing? (5 years old or older) No 10/11/2022 Because of a physical, menta l, or emotional condition, do you have difficulty doing errands alone such as visiting a doctor s office or shopping? (15 years old or older) No 10/12/19 23 Cognitive Status Response Date of Assessm ent Because of a physical, menta l, or emotional condition, do you have serious difficulty concentrating, remembering, or making decisions? (5 years old or older) No 10/11/2022 documented as of this encounter Miscellaneous Notes * Telephone Encounter - Apple Varghese [facility] - 03/23/2024 8:10 AM EDTSigned Prescriptions: Disp Refills Breo Ellipta 200-25 MCG/ACT Inhalation Aer*180 Ea*1 Sig: INHALE 1 PUFF BY MOUTH IN THE MORNINGAuthorizing Provider: SIVAKUMAR ASHBY User: APPLE VARGHESE-- documented in this encounter Plan of Treatment Upcoming Encounters Date Type Department Care Team (Late st Contact Info) Description 04/22/2024 8:30 AM EDT Cardiac Studies Cardiac Studies [address] [place] [address] 07/31/2024 2:00 PM EST Office Visit Rheumatology [address] [place] [phone] Afla Gifford CRNP [address] [place] [address] [place] [address] Health Maintenance Due Date Last Done Comments Pneumococcal Vaccine: Pediatrics (0 to 5 Years) and At-Risk Patients (6 to 64 Years) (1 of 2 - PCV) 1973 DTap/Tdap Vaccines (1 - Tdap) 1986 Hepatitis B Vaccine (1 of 3 - 19+ 3-dose series) 1986 Zoster Vaccines (1 of 2) 1986 Cologuard 2012 Colonoscopy 2012 Colorectal Cancer Screening 2012 Fecal Occult Blood Test 2012 Sigmoidoscopy 2012 Depression Monitoring 02/19/2019 02/19/2018 COVID-19 Vaccine ( season) 2024 04/23/2023, 05/16/2021, 03/07/2021 Influenza Vaccine (FLU shot) (#1) 2024 04/23/2023, 04/25/2022, 02/23/2021, Additional history exists O2 ASSESSMENT COMPLETED IN PAST YEAR FOR COPD 01/22/2025 01/23/2024 TSH 01/22/2025 01/23/2024, 09/22, 11/09/2021, Additional history exists Lipid Panel 11/09/2026 11/09/2021, 10/09/2018 Diabetes Screening 01/22/2027 01/23/2024, 0 01/16/2023, 10/31/2022, Additional history exists Alpha-1 Antitrypsin Completed 04/30/2022 HPV (Gardasil) Vaccine Aged Out No lo nger eligible based on patient's age to complete this topic MENINGOCOCCAL (MENACTRA/MENVEO) Aged Out No longer eligible based on patient's age to complete this topic documented as of this encounter Medical Devices Not on filedocumented as of this encounter Advance Directives * Full Code (Latest Code Status on File) Date Activated Date Inactivated Comments 10/11/2022 5:09 AM 10/20/2022 8:49 PM This order r eflects the patients wishes and were consensually agreed upon. Question Answer Comments Discussion of Advance Directives occurred with: Patient * Full Code Date Activated Date Inactivated Comments 10/03/2022 12:03 AM 10/11/2022 4:30 AM This order reflects the patients wishes and were consensually agreed upon. Question Answer Comments Discussion of Advance Directives occurred with: Patient Care Teams Finishing Room Operator Relationship Specialty Start Date End Date Eder Mittal MD [address] [place] [address] [place] [phone] PCP - General Family Medicine 12/22/21 documented as of this encounter
--- OUTSIDE RECORDS SUMMARY | 2024-04-10 03:29 | External Medical Summary | Summary of Care ---
Author Name Unknown Organization [facility] Address [address] [facility] [place] [address] Phone [phone] Care Team Providers Care Nutritional Assistant Name Role Phone Eder Mittal MD Primary Care Provide r Reason for Visit * Reason Onset Date Comments Medication Refill 02/17/2024 Encounter Details Date Type Department Care Team (Late st Contact Info) Description 02/17/2024 Refill Family Medicine [address] [phone] Eder Mittal MD [address] [place] [address] [place] [id number] Other insomnia Allergies No known active allergiesdocumented as of this encounter (statuses as of 02/17/2024) Medications Medication Sig Dispensed Refills Start Date End Date Status albuterol HFA (PROAIR HFA) 108 (90 BASE) MCG/ACT inhaler Inhale 2 Puffs by mouth every 4 hours as needed for Dyspnea. 1 Inhaler 11 9 Active AMBULATORY MISCELLANEOUS MEDICATION 6.0 Shiley non fenestrated inner cannulas 30 Units 11 9 Active Misc. Devices 14 Fr suction tubing 20 Each 6 1 Active Misc. DevicesIndications: Malignant neoplasm of larynx (HCC),Carcinoma of epiglottis (HCC) 6.0 shiley DCFS inner cannulas 30 Each 5 1 Active Misc. Devices Shiley 6-0 DCFS uncuffed tracheotomy tube 1 Each 4 1 Active Misc. Devices velcro trach ties 10 Each 4 1 Active Misc. Devices Inner cannulas for trach 30 Each 3 1 Active Misc. Devices Passy [place] Valve 2 Each 3 1 Active Misc. Devices 6.0 shiley non fenestrated inner cannulas 30 Each 6 1 Active Misc. Devices Trach cleaning kit 8 Each 6 1 Active Misc. Devices Sig: Modudose 0.9% Sodium Chloride Solution, CUSTODIAL, 5 mL, ampules Disp 1 Box of 100 each for trach care Class: Normal 1 Each 5 1 Active Misc. Devices Cool mist humidification 1 Each 1 Active Albuterol Sulfate 1.25 MG/3ML Inhalation Nebulization SolutionIndications :COPD, mild (HCC) Inhale 1.25 mg via nebulizer every 4 hours as needed for Wheezing. 100 mL 1 2 Active Fluticasone Propionate 50 MCG/ACT Nasal Suspension (Flonase)Indication s:Sinus pain ADMINISTER 2 SPRAYS INTO EACH NOSTRIL EVERY DAY 48 mL 1 3 Active oxygen IN GAS Use 2 L/min(Oxygen) as directed. 3 Active Ventolin HFA 108 (90 Base) MCG/ACT Inhalation Aerosol SolutionIndications :COPD, mild (HCC) INHALE 2 PUFFS BY MOUTH IN THE MORNING, AT NOON, IN THE EVENING, AND BEFORE BEDTIME 18 g 5 3 Active Breo Ellipta 200-25 MCG/ACT Inhalation Aerosol Powder Breath Activated (fluticasone furoate-vilanterol) INHALE 1 PUFF BY MOUTH IN THE MORNING 180 Each 1 4 Active Omeprazole 40 MG Oral Capsule Delayed Release (PriLOSEC)Indicatio ns:Gastroesophageal reflux disease without esophagitis TAKE 1 CAPSULE BY MOUTH EVERY DAY IN THE MORNING 90 Capsule 2 4 Active hydrOXYzine HCl 50 MG Oral TabletIndications:G AD (generalized anxiety disorder),Insomnia, unspecified type TAKE BY MOUTH 1 TABLET 2 TIMES A DAY NEEDED FOR ANXIETY OR OTHER (AND SLEEP). 180 Tablet 2 4 Active Spironolactone 25 MG Oral Tablet (Aldactone) Take 0.5 Tablets by mouth in the morning. 30 Tablet 5 4 Active Ondansetron HCl 4 MG Oral Tablet (Zofran)Indications :Nausea,Alcohol withdrawal syndrome without complication (HCC) TAKE 1 TABLET BY MOUTH EVERY 8 HOURS NEEDED FOR NAUSEA 40 Tablet 4 Active busPIRone HCl 5 MG Oral Tablet (Buspar)Indications :AMEYA (generalized anxiety disorder),Major depressive disorder with single episode, in remission (HCC) TAKE 1 TABLET BY MOUTH IN THE MORNING AND BEFORE BEDTIME 180 Tablet 1 4 Active Citalopram Hydrobromide 20 MG Oral Tablet (CeleXA)Indications :AMEYA (generalized anxiety disorder),Major depressive disorder with single episode, in remission (HCC) TAKE 1 TABLET BY MOUTH EVERY DAY IN THE MORNING 90 Tablet 1 4 Active Furosemide 20 MG Oral Tablet (Lasix)Indications: Recurrent pleural effusion TAKE 1 TABLET BY MOUTH IN THE MORNING AND IN THE EVENING 180 Tablet 1 4 Active Levothyroxine Sodium 137 MCG Oral TabletIndications:A cquired hypothyroidism TAKE 1 TABLET BY MOUTH FIRST THING IN THE MORNING 30 MINUTES PRIOR TO BREAKFAST OR OTHER MEDS 30 Tablet 4 Active Hydroxychloroquine Sulfate 200 MG Oral Tablet (Plaquenil) TAKE 1 TABLET BY MOUTH IN THE MORNING AND IN THE EVENING 180 Tablet 1 4 Active traZODone HCl 50 MG Oral Tablet (Desyrel)Indication s:Other insomnia Take 1 Tablet by mouth at bedtime. 90 Tablet 1 4 Active traZODone HCl 50 MG Oral Tablet (Desyrel)Indication s:Other insomnia Take 1 Tablet by mouth at bedtime. 30 Tablet 5 4 02/17/20 24 Discontinu ed(Refill) documented as of this encounter (statuses as of 02/17/2024) Active Problems Problem Noted Date Diagnosed Date [...] as of this encounter (statuses as of 02/17/2024) Resolved Problems Problem Noted Date Diagnosed Date [...] as of this encounter (statuses as of 02/17/2024) Immunizations Name Administration Dates Next Due COVID-19 mRNA, LNP-s, No Pre serve, 2-Dose Series ([employer]) 05/16/2021,03/07/2021 COVID-19, MRNA-LNP, 23-24, P F, 30 MCG/0.3 mL, 12 YRS AND ABOVE, IM ([facility]) 04/23/2023 Seasonal Influenza, PF, 6 M & above, IM , (FluLaval or Fluzone) 04/23/2023,04/25/2022,02/23/2021, 0 20,03/22/2017 documented as of this encounter Social History Tobacco Use Types Packs/Day Years Used Date Smoking Tobacco: Former Cigarettes 2 38.1 S tarted: 1992 Smokeless Tobacco: Former Comments:09/17/22 [...] encounter Miscellaneous Notes * Telephone Encounter - Eder Mittal MD - 02/17/2024 12:05 PM EDT Signed Prescriptions: Disp Refills traZODone HCl 50 MG Oral Tablet (Desyrel) 90 Tab*1 Sig: Take 1 Tablet by mouth at bedtime. Authorizing Provider: EDER MITTAL * Telephone Encounter - Terra Harrison RN - 02/17/2024 11:50 AM EDTPending Prescriptions: Disp Refills traZODone HCl 50 MG Oral Tablet (Desyrel) 90 Tab*1 Sig: Take 1 Tablet by mouth at bedtime. * Telephone Encounter - Leann Pennington OSA - 02/17/2024 10:30 AM EDT Did you pend patient's preferred pharmacy and medication before forwarding?yes Pharmacy: [id number] Pending Prescriptions: Disp Refills traZODone HCl 50 MG Oral Tablet (Desyrel) 30 Tab*5 Sig: Take 1 Tablet by mouth at bedtime. Last Visit: 01/23/2024 (in office), Visit date not found (telemedicine) Next Visit: Visit date not found If no future appointments scheduled, and last appointment is greater than a year ago, please schedule patient for a follow-up appointment Last date the medication was ordered: 1.24 Is this request for a controlled substance?No 90 day refill request Urine Drug Screen:No results found for this or any previous visit. Patient Phone Numbers Labs: Lab Results Component Value Date/Time CREAT 1.1 01/23/2024 02:00 PM CREAT 1.1 03/12/2017 02:31 PM POTASSIUM 3.7 01/23/2024 02:00 PM POTASSIUM 4.3 03/12/2017 02:31 PM TSH 0.35 01/23/2024 02:00 PM TSH 2.90 10/09/2018 03:21 PM LDLCALC 57 11/09/2021 12:47 PM LDLCALC 90 10/09/2018 03:21 PM LDLDIRECT NOT APPLICABLE 10/09/2018 03:21 PM ALT 11 01/23/2024 02:00 PM ALT 13 03/12/2017 02:31 PM HGBA1C 5.3 01/20/2021 02:26 PM documented in this encounter Plan of Treatment Upcoming Encounters Date Type Department Care Team (Late st Contact Info) Description 03/04/2024 11:00 AM EDT PulmDiagnostic Pulmonary Function Lab, [facility] [address] [facility] [place] [address] [place], [address] [facility] [place] [address] 03/18/2024 12:45 PM EDT Cardiac Studies Cardiac Studies [address] [place] [address] 07/31/2024 2:00 PM EST Office Visit Rheumatology [address] [place] [phone] Alfa Gifford CRNP [address] [place] [address] [place] [address] Health Maintenance Due Date Last Done Comments Pneumococcal Vaccine: Pediatrics (0 to 5 Years) and At-Risk Patients (6 to 64 Years) (1 of 2 - PCV) 1973 DTaP,Tdap,and Td Vaccines (1 - Tdap) 1986 Hepatitis B Vaccine (1 of 3 - 19+ 3-dose series) 1986 Zoster Vaccines (1 of 2) 1986 Cologuard 2012 Colonoscopy 2012 Colorectal Cancer Screening 2012 Fecal Occult Blood Test 2012 Sigmoidoscopy 2012 Depression Monitoring 02/19/2019 02/19/2018 Influenza Vaccine (FLU shot) (#1) 2024 04/23/2023, 04/25/2022, 02/23/2021, Additional history exists O2 ASSESSMENT COMPLETED IN PAST YEAR FOR COPD 01/22/2025 01/23/2024 TSH 01/22/2025 01/23/2024, 09/22, 11/09/2021, Additional history exists Lipid Panel 11/09/2026 11/09/2021, 10/09/2018 Diabetes Screening 01/22/2027 01/23/2024, 0 01/16/2023, 10/31/2022, Additional history exists Alpha-1 Antitrypsin Completed 04/30/2022 COVID-19 Vaccine Completed 04/23/2023, , 03/07/2021 HPV (Gardasil) Vaccine Aged Out No lo nger eligible based on patient's age to complete this topic MENINGOCOCCAL (MENACTRA/MENVEO) Aged Out No longer eligible based on patient's age to complete this topic documented as of this encounter Medical Devices Not on filedocumented as of this encounter Visit Diagnoses Diagnosis Other insomnia documented in this encounter Advance Directives * Full Code [...] Advance Directives occurred with: Patient Care Teams Nutritional Assistant Relationship Specialty Start Date End Date Eder Mittal MD [address] [place] [address] [place] [address] PCP - General Family Medicine 12/22/21 documented as of this encounter
--- OUTSIDE RECORDS SUMMARY | 2024-04-10 03:29 | External Medical Summary | Summary of Care ---
Author Name Unknown Organization [facility] Address [address] [facility] [place] [address] Phone [phone] Care Team Providers Care Wire Bound Box Machine Helper Name Role Phone Eder Mittal MD Primary Care Provide r Reason for Visit * Reason Onset Date Comments Medication Refill 03/02/2024 Encounter Details Date Type Department Care Team (Late st Contact Info) Description 03/02/2024 Refill Family Medicine [address] [phone] Eder Mittal MD [address] [place] [address] [place] [address] Acquired hypothyroidism Allergies No known active allergiesdocumented as of this encounter (statuses as of 03/04/2024) Medications Medication Sig Dispensed Refills Start Date [...] Each 3 1 Active Misc. Devices Passy [place] Valve 2 Each 3 1 Active Misc. Devices 6.0 shiley non fenestrated inner cannulas 30 Each 6 1 Active Misc. Devices Trach cleaning kit 8 Each 6 1 Active Misc. Devices Sig: Modudose 0.9% Sodium Chloride Solution, PRISON, 5 mL, ampules Disp 1 Box of [...] THE EVENING 180 Tablet 1 4 Active Hydroxychloroquine Sulfate 200 MG Oral Tablet (Plaquenil) TAKE 1 TABLET BY MOUTH IN THE MORNING AND IN THE EVENING 180 Tablet 1 4 Active traZODone HCl 50 MG Oral Tablet (Desyrel)Indication s:Other insomnia Take 1 Tablet by mouth at bedtime. 90 Tablet 1 4 Active Levothyroxine Sodium 137 MCG Oral TabletIndications:A cquired hypothyroidism Take 1 Tablet by mouth daily first thing in the morning. (at least 30 min prior to breakfast or other meds) 90 Tablet 3 4 Active Levothyroxine Sodium 137 MCG Oral TabletIndications:A cquired hypothyroidism TAKE 1 TABLET BY MOUTH FIRST THING IN THE MORNING 30 MINUTES PRIOR TO BREAKFAST OR OTHER MEDS 30 Tablet 4 03/02/20 24 Discontinu ed(Refill) documented as of this encounter (statuses as of 03/04/2024) Active Problems Problem Noted Date Diagnosed Date [...] as of this encounter (statuses as of 03/04/2024) Resolved Problems Problem Noted Date Diagnosed Date [...] as of this encounter (statuses as of 03/04/2024) Immunizations Name Administration Dates Next Due COVID-19 mRNA, LNP-s, No Pre serve, 2-Dose Series ([employer]) 05/16/2021,03/07/2021 COVID-19, MRNA-LNP, 23-24, P F, 30 [...] encounter Miscellaneous Notes * Telephone Encounter - Anam Randall [facility] - 03/04/2024 11:29 AM EDT Signed Prescriptions: Disp Refills Levothyroxine Sodium 137 MCG Oral Tablet 90 Tab*3 Sig: Take 1 Tablet by mouth daily first thing in the morning. (at least 30 min prior to breakfast or other meds) Authorizing Provider: EDER MITTAL Ordering User: ANAM RANDALL * Telephone Encounter - Omer Landa CPhT - 03/02/2024 2:24 PM EDT Did you pend patient's preferred pharmacy and medication before forwarding?yes Pharmacy: [id number] Pending Prescriptions: Disp Refills Levothyroxine Sodium 137 MCG Oral Tablet 30 Tab*0 Sig: Take 1 Tablet by mouth daily first thing in the morning. (at least 30 min prior to breakfast or other meds) Last Visit: 01/23/2024 (in office), Visit date not found (telemedicine) Next Visit: Visit date not found If no future appointments scheduled, and last appointment is greater than a year ago, please schedule patient for a follow-up appointment Last date the medication was ordered: 01/14/24 Is this request for a controlled substance?No Urine Drug Screen:No results found for this or any previous visit. Patient Phone Numbers Labs: Lab Results Component Value Date/Time CREAT 1.1 01/23/2024 02:00 PM CREAT 1.1 03/12/2017 02:31 PM POTASSIUM 3.7 01/23/2024 02:00 PM POTASSIUM 4.3 03/12/2017 02:31 PM TSH 0.35 01/23/2024 02:00 PM TSH 2.90 10/09/2018 03:21 PM LDL 57 11/09/2021 12:47 PM LDL 90 10/09/2018 03:21 PM LDL NOT APPLICABLE 10/09/2018 03:21 PM ALT 11 01/23/2024 02:00 PM ALT 13 03/12/2017 02:31 PM HGBA1C 5.3 01/20/2021 02:26 PM Thank you, Yaw Landa ([facility]) Child [facility] Manager III [facility] 03/02/2024, 2:24 PM * Telephone Encounter - Billy Lee cement handler - 03/02/2024 2:19 PM EDT Pt calling to request refill for Levothyroxine Sodium 137 MCG Oral Tablet. Before confirming pt's pharmacy line disconnected. Thank you, Billy Lee Outside Installer Apprentice I [facility] 03/02/2024,2:21 PM documented in this encounter Plan of Treatment Upcoming Encounters Date Type Department Care Team (Late st Contact Info) Description 03/18/2024 12:45 PM EDT Cardiac Studies Cardiac Studies [address] [place] [address] 07/31/2024 2:00 PM EST Office Visit Rheumatology [address] [place] [phone] Alfa Gifford CRNP [address] [place] [address] [place] [address] Health Maintenance Due Date Last Done Comments [...] Depression Monitoring 02/19/2019 02/19/2018 COVID-19 Vaccine ( - 2022- season) 2024 04/23/2023, 05/16/2021, 03/07/2021 Influenza Vaccine [...] as of this encounter Visit Diagnoses Diagnosis Acquired hypothyroidism Unspecified hypothyroidism documented in this encounter Advance Directives * [...] Advance Directives occurred with: Patient Care Teams Wire Bound Box Machine Helper Relationship Specialty Start Date End Date Eder Mittal MD [address] [place] [address] [place] [address] PCP - General Family Medicine 12/22/21 documented as of this encounter
--- OUTSIDE RECORDS SUMMARY | 2024-04-10 03:29 | External Medical Summary | Summary of Care ---
Author Name Unknown Organization [facility] Address [address] [place] [address] Phone [phone] Care Team Providers Care Web Production Artist Name Role Phone Eder Mittal MD Primary Care Provide r Encounter Details Date Type Department Care Team (Late st Contact Info) Description 03/10/2024 Orders Only Outcomes Research Department [address] [place], [place] [id number] Ledy Wilson [employer] Research Other*[id number] Allergies No known active allergiesdocumented as of this encounter (statuses as of 03/10/2024) Medications Medication Sig Dispensed Refills Start Date End Date Status albuterol HFA (PROAIR HFA) 108 (90 BASE) MCG/ACT inhaler Inhale 2 Puffs by mouth every 4 hours as needed for Dyspnea. 1 Inhaler 11 09/18/2018 Active AMBULATORY MISCELLANEOUS MEDICATION 6.0 Shiley non fenestrated inner cannulas 30 Units 11 09/18/2018 Active Misc. Devices 14 Fr suction tubing 20 Each 6 04/06/2021 Active Misc. DevicesIndications: Malignant neoplasm of larynx (HCC),Carcinoma of epiglottis (HCC) 6.0 shiley DCFS inner cannulas 30 Each 5 04/06/2021 Active Misc. Devices Shiley 6-0 DCFS uncuffed tracheotomy tube 1 Each 4 04/06/2021 Active Misc. Devices velcro trach ties 10 Each 4 04/06/2021 Active Misc. Devices Inner cannulas for trach 30 Each 3 04/06/2021 Active Misc. Devices Passy [place] Valve 2 Each 3 04/06/2021 Active Misc. Devices 6.0 shiley non fenestrated inner cannulas 30 Each 6 04/06/2021 Active Misc. Devices Trach cleaning kit 8 Each 6 04/06/2021 Active Misc. Devices Sig: Modudose 0.9% Sodium Chloride Solution, DETENTION, 5 mL, ampules Disp 1 Box of 100 each for trach care Class: Normal 1 Each 5 04/06/2021 Active Misc. Devices Cool mist humidification 1 Each 04/06/2021 Active Albuterol Sulfate 1.25 MG/3ML Inhalation Nebulization SolutionIndications :COPD, mild (HCC) Inhale 1.25 mg via nebulizer every 4 hours as needed for Wheezing. 100 mL 1 06/21/2022 Active Fluticasone Propionate 50 MCG/ACT Nasal Suspension (Flonase)Indication s:Sinus pain ADMINISTER 2 SPRAYS INTO EACH NOSTRIL EVERY DAY 48 mL 1 07/12/2022 Active oxygen IN GAS Use 2 L/min(Oxygen) as directed. 10/20/2022 Active Ventolin HFA 108 (90 Base) MCG/ACT Inhalation Aerosol SolutionIndications :COPD, mild (HCC) INHALE 2 PUFFS BY MOUTH IN THE MORNING, AT NOON, IN THE EVENING, AND BEFORE BEDTIME 18 g 5 03/28/2023 Active Breo Ellipta 200-25 MCG/ACT Inhalation Aerosol Powder Breath Activated (fluticasone furoate-vilanterol) INHALE 1 PUFF BY MOUTH IN THE MORNING 180 Each 1 06/25/2023 Active Omeprazole 40 MG Oral Capsule Delayed Release (PriLOSEC)Indicatio ns:Gastroesophageal reflux disease without esophagitis TAKE 1 CAPSULE BY MOUTH EVERY DAY IN THE MORNING 90 Capsule 2 07/13/2023 Active hydrOXYzine HCl 50 MG Oral TabletIndications:G AD (generalized anxiety disorder),Insomnia, unspecified type TAKE BY MOUTH 1 TABLET 2 TIMES A DAY NEEDED FOR ANXIETY OR OTHER (AND SLEEP). 180 Tablet 2 08/05/2023 Active Spironolactone 25 MG Oral Tablet (Aldactone) Take 0.5 Tablets by mouth in the morning. 30 Tablet 5 08/27/2023 Active Ondansetron HCl 4 MG Oral Tablet (Zofran)Indications :Nausea,Alcohol withdrawal syndrome without complication (HCC) TAKE 1 TABLET BY MOUTH EVERY 8 HOURS NEEDED FOR NAUSEA 40 Tablet 09/03/2023 Active busPIRone HCl 5 MG Oral Tablet (Buspar)Indications :AMEYA (generalized anxiety disorder),Major depressive disorder with single episode, in remission (HCC) TAKE 1 TABLET BY MOUTH IN THE MORNING AND BEFORE BEDTIME 180 Tablet 1 11/04/2023 Active Citalopram Hydrobromide 20 MG Oral Tablet (CeleXA)Indications :AMEYA (generalized anxiety disorder),Major depressive disorder with single episode, in remission (HCC) TAKE 1 TABLET BY MOUTH EVERY DAY IN THE MORNING 90 Tablet 1 11/04/2023 Active Furosemide 20 MG Oral Tablet (Lasix)Indications: Recurrent pleural effusion TAKE 1 TABLET BY MOUTH IN THE MORNING AND IN THE EVENING 180 Tablet 1 11/04/2023 Active Hydroxychloroquine Sulfate 200 MG Oral Tablet (Plaquenil) TAKE 1 TABLET BY MOUTH IN THE MORNING AND IN THE EVENING 180 Tablet 1 01/17/2024 Active traZODone HCl 50 MG Oral Tablet (Desyrel)Indication s:Other insomnia Take 1 Tablet by mouth at bedtime. 90 Tablet 1 02/17/2024 Active Levothyroxine Sodium 137 MCG Oral TabletIndications:A cquired hypothyroidism Take 1 Tablet by mouth daily first thing in the morning. (at least 30 min prior to breakfast or other meds) 90 Tablet 3 03/04/2024 Active documented as of this encounter (statuses as of 03/10/2024) Active Problems Problem Noted Date Diagnosed Date [...] as of this encounter (statuses as of 03/10/2024) Resolved Problems Problem Noted Date Diagnosed Date [...] as of this encounter (statuses as of 03/10/2024) Immunizations Name Administration Dates Next Due COVID-19 mRNA, LNP-s, No Pre serve, 2-Dose Series ([employer]) 05/16/2021,03/07/2021 COVID-19, MRNA-LNP, 23-24, P F, 30 MCG/0.3 mL, 12 YRS AND ABOVE, [facility] 04/23/2023 Seasonal Influenza, PF, 6 M & [...] No 10/11/2022 documented as of this encounter Plan of Treatment Upcoming Encounters Date Type Department Care Team (Late st Contact Info) Description 03/18/2024 12:45 PM EDT Cardiac Studies Cardiac Studies [address] [place] [address] 07/31/2024 2:00 PM EST Office Visit Rheumatology [address] [place] [phone] Alfa Gifford CRNP [address] [facility] [place] [address] Scheduled Orders Name Type Priority Associated Diagnoses Orde r Schedule MYCODE SUBSEQUENT ADULT Lab Routine [employer] Research Other*[id number] Every 6 Months for 2 Occurrences starting 03/10/2024 until 03/30/2025 Health Maintenance Due Date Last Done Comments [...] as of this encounter Visit Diagnoses Diagnosis [employer] Other*[id number] documented in this encounter Advance Directives * [...] Advance Directives occurred with: Patient Care Teams Web Production Artist Relationship Specialty Start Date End Date Eder Mittal MD [address] [place] [address] [place] [address] PCP - General Family Medicine 12/22/21 documented as of this encounter
--- OUTSIDE RECORDS SUMMARY | 2024-04-10 03:30 | External Medical Summary | Summary of Care ---
Author Name Unknown Organization [facility] Address [address] [facility] [place] [address] Phone [phone] Care Team Providers Care Financial Reporting Accountant Name Role Phone Eder Mittal MD Primary Care Provide r Reason for Visit * Reason Comments Outpatient Testing Encounter Details Date Type Department Care Team (Late st Contact Info) Description 01/23/2024 2:20 PM EDT Laboratory Laboratory [address] [place] [phone] [facility] [address] [place] [address] Encounter for long-term (current) use of medications; MyCode Research Other*[id number]; Acquired hypothyroidism Allergies No known active allergiesdocumented as of this encounter (statuses as of 01/23/2024) Medications Medication Sig Dispensed Refills Start Date [...] Each 3 04/06/2021 Active Misc. Devices Passy Holly Valve 2 Each 3 04/06/2021 Active Misc. Devices 6.0 shiley non fenestrated inner cannulas 30 Each 6 04/06/2021 Active Misc. Devices Trach cleaning kit 8 Each 6 04/06/2021 Active Misc. Devices Sig: Modudose 0.9% Sodium Chloride Solution, FCI, 5 mL, ampules Disp 1 Box of [...] THE EVENING 180 Tablet 1 11/04/2023 Active Levothyroxine Sodium 137 MCG Oral TabletIndications:A cquired hypothyroidism TAKE 1 TABLET BY MOUTH FIRST THING IN THE MORNING 30 MINUTES PRIOR TO BREAKFAST OR OTHER MEDS 30 Tablet 01/14/2024 Active Hydroxychloroquine Sulfate 200 MG Oral Tablet (Plaquenil) TAKE 1 TABLET BY MOUTH IN THE MORNING AND IN THE EVENING 180 Tablet 1 01/17/2024 Active traZODone HCl 50 MG Oral Tablet (Desyrel)Indication s:Other insomnia Take 1 Tablet by mouth at bedtime. 30 Tablet 5 01/23/2024 Active documented as of this encounter (statuses as of 01/23/2024) Active Problems Problem Noted Date Diagnosed Date [...] as of this encounter (statuses as of 01/23/2024) Resolved Problems Problem Noted Date Diagnosed Date [...] as of this encounter (statuses as of 01/23/2024) Immunizations Name Administration Dates Next Due COVID-19 mRNA, LNP-s, No Pre serve, 2-Dose Series ([employer]) 05/16/2021,03/07/2021 COVID-19, MRNA-LNP, 23-24, P F, 30 MCG/0.3 mL, 12 YRS AND ABOVE, IM (PFIZER-Comirnaty) 04/23/2023 Seasonal Influenza, PF, 6 M & above, IM , (FluLaval or Fluzone) 04/23/2023,04/25/2022,02/23/2021, 0 20,03/22/2017 documented as of this encounter Social History Tobacco Use Types Packs/Day Years Used Date Smoking Tobacco: Former Cigarettes 2 38 S tarted: 1992 Smokeless Tobacco: Former Comments:09/17/22 [...] (15 years old or older) No 10/12/19 Cognitive Status Response Date of Assessm ent Because of a physical, menta l, or emotional condition, do you have serious difficulty concentrating, remembering, or making decisions? (5 years old or older) No 10/11/2022 documented as of this encounter Plan of Treatment Upcoming Encounters Date Type Department Care Team (Late st Contact Info) Description 01/24/2024 2:00 PM EDT Office Visit Rheumatology [address] [place] [phone] Alfa Gifford CRNP [address] [place] [address] [place] [address] Pending Results Name Type Priority Associated Diagnoses Date /Time VITAMIN B12 Lab Routine Encounter for long-term (current) use of medications 01/23/2024 2:00 PM EDT MYCODE SUBSEQUENT ADULT Lab Routine MyCode Research Other*[id number] 01/23/2024 2:00 PM EDT TSH WITH FREE T4 IF INDICATED Lab Routine Acquired hypothyroidism 01/23/2024 2:00 PM EDT BASIC METABOLIC PANEL Lab Routine Encounter for long-term (current) use of medications 01/23/2024 2:00 PM EDT MYCODE SST1 Lab Routine MyCode Research Other*[id number] 01/23/2024 2:00 PM EDT MYCODE SST2 Lab Routine MyCode Research Other*[id number] 01/23/2024 2:00 PM EDT Health Maintenance Due Date Last Done Comments [...] 2012 Sigmoidoscopy 2012 Depression Monitoring 02/19/2019 02/19/2018 TSH 10/07/2023 10/06/2022, 10/22, 01/20/2021, Additional history exists Influenza Vaccine (FLU shot) (#1) 2024 04/23/2023, 04/25/2022, 02/23/2021, Additional history exists O2 ASSESSMENT COMPLETED IN PAST YEAR FOR COPD 01/22/2025 01/23/2024 Diabetes Screening 01/16/2026 01/16/2023, 0 10/31/2022, 10/24/2022, Additional history exists Lipid Panel 11/09/2026 11/09/2021, 10/09/2018 Alpha-1 Antitrypsin Completed 04/30/2022 COVID-19 Vaccine Completed 04/23/2023, , 03/07/2021 HPV (Gardasil) Vaccine Aged Out No lo nger eligible based on patient's age to complete this topic MENINGOCOCCAL (MENACTRA/MENVEO) Aged Out No longer eligible based on patient's age to complete this topic documented as of this encounter Medical Devices Not on filedocumented as of this encounter Visit Diagnoses Diagnosis Encounter for long-term (current) use of medications Encounter for long-term (current) use of other medications MyCode Research Other*[id number] Acquired hypothyroidism Unspecified hypothyroidism documented in this [...] Advance Directives occurred with: Patient Care Teams Financial Reporting Accountant Relationship Specialty Start Date End Date Eder Mittal MD [address] [place] [address] [place] [phone] PCP - General Family Medicine 12/22/21 documented as of this encounter
--- OUTSIDE RECORDS SUMMARY | 2024-04-10 03:30 | External Medical Summary | Summary of Care ---
Author Name Unknown Organization [facility] Address [address] [facility] [place] [address] Phone [phone] Care Team Providers Care Riverboat Captain Name Role Phone Eder iMttal MD Primary Care Provide r Reason for Referral * Precert (Within 10 days (routine)) - Authorized Specialty Diagnoses / Procedures Referred By Contac t Referred To Contact Cardiac Studies Diagnoses Scleroderma, limited (HCC) Procedures ECHO, COMPLETE (2D), TRANS-THORACIC Alfa Gifford CRNP [address] [facility] [place] [address] Referral ID Status Reason Start Date Expiration Date V isits Requested Visits Authorized [id number] Authorized Precert 02/24/2024 999 999 Reason for Visit * Reason Comments Follow Up Encounter Details Date Type Department Care Team (Late st Contact Info) Description 01/24/2024 2:00 PM EDT Office Visit Rheumatology [address] [place] [phone] Alfa Gifford CRNP [address] [facility] [place] [address] Scleroderma, limited (HCC)*; Long-term use of Plaquenil; Tracheostomy status (HCC); IgG monoclonal protein disorder; Cryoglobulinemia (HCC); Carcinoma of epiglottis (HCC) Allergies No known active allergiesdocumented as of this encounter (statuses as of 01/27/2024) Medications Medication Sig Dispensed Refills Start Date [...] Each 3 04/06/2021 Active Misc. Devices Passy Weston Valve 2 Each 3 04/06/2021 Active Misc. Devices 6.0 shiley non fenestrated inner cannulas 30 Each 6 04/06/2021 Active Misc. Devices Trach cleaning kit 8 Each 6 04/06/2021 Active Misc. Devices Sig: Modudose 0.9% Sodium Chloride Solution, LONG-TERM, 5 mL, ampules Disp 1 Box of [...] MORNING AND IN THE EVENING 180 Tablet 11/04/2023 Active Levothyroxine Sodium 137 MCG Oral [...] as of this encounter (statuses as of 01/27/2024) Active Problems Problem Noted Date Diagnosed Date [...] as of this encounter (statuses as of 01/27/2024) Resolved Problems Problem Noted Date Diagnosed Date [...] as of this encounter (statuses as of 01/27/2024) Immunizations Name Administration Dates Next Due COVID-19 mRNA, LNP-s, No Pre serve, 2-Dose Series ([employer]) 05/16/2021,03/07/2021 COVID-19, MRNA-LNP, 23-24, P F, 30 MCG/0.3 mL, 12 YRS AND ABOVE, IM (PFIZER-Comirnaty) 04/23/2023 Seasonal Influenza, PF, 6 M & above, IM , (FluLaval or Fluzone) 04/23/2023,04/25/2022,02/23/2021, 0 20,03/22/2017 documented as of this encounter Social History Tobacco Use Types Packs/Day Years Used Date Smoking Tobacco: Former Cigarettes 2 38.1 S tarted: 1992 Smokeless Tobacco: Former Tobacco Cessation:Counseling Given: Not Answered Comments:09/17/22 currently smoking 1 ppd Alcohol Use [...] on file documented as of this encounter Last Filed Vital Signs Vital Sign Reading Time Taken Comments Blood Pressure 110/60 01/24/2024 1:48 PM EDT Pulse 72 01/24/2024 1:48 PM EDT Temperature 35.6 C (96 F) 01/24/2024 1:48 PM EDT Respiratory Rate 18 01/24/2024 1:48 PM EDT Oxygen Saturation - - Inhaled Oxygen Concentration - - Weight 93.4 kg (206 lb) 01/24/2024 1:48 PM EDT Height - - Body Mass Index 27.94 01/17/2023 1:26 PM EDT documented in this encounter Functional Status Functional Status Response [...] No 10/11/2022 documented as of this encounter Patient Instructions * Patient Instructions* Alfa Gifford CRNP - 01/24/2024 2:44 PM EDT Labs: CBC Call to schedule ECHO and PFT [facility] Follow up 6 months Continue current dose of Plaquenil Contact clinic with questions or concern documented in this encounter Progress Notes * Alfa Gifford CRNP - 01/24/2024 1:50 PM EDT Date of last clinic visit reviewed: 10/29/2022 Current medication therapy: Plaquenil 2 tab daily Date of last labs reviewed 01/23/2024 BMP/Hepatic function Subjective: Patient seen today for further follow up evaluation of scleroderma - limited. Since the last visit he continues on Plaquenil twice daily. He notes his joints are doing well with minimal pain. Reportshis fingers will turn white in the cold but manages fine. Continues to get red spots on his hands and finger. Denies CP, SOB, Dysphagia. Reports he has not followed up with Pulmonology since his hospi talization September, Musculoskeletal ROS: . Normal Other ROS: . Constitutional: trouble sleeping . Head normal . Eyes: normal . Ears, nose, throat, mouth: normal . Cardiovascular: normal . Respiratory: normal . Gastrointestinal: normal . Genitourinary: normal . Skin: fingers turning white and red spots on hands and fingers . Neurologic: normal All other ROS reviewed and negative. Pertinent positives listed in HPI. Social History: Social History Tobacco Use Smoking status: Former Current packs/day: 2.00 Average packs/day: 2.0 packs/day for 38.1 years (76.1 ttl pk-yrs) Types: Cigarettes Start date: 1992 Smokeless tobacco: Former Tobacco comments: 09/17/22 currently smoking 1 ppd Substance Use Topics Alcohol use: Not Currently Alcohol/week: 10.0 standard drinks of alcohol Types: 10 12 oz of beer per week Vaping/E-Cigarette Use Vaping/E-Cigarette Use Never User Vaping/E-Cigarette Substances Vaping/E-Cigarette Devices Current Outpatient Medications Medication Sig Dispense Refill albuterol HFA (PROAIR HFA) 108 (90 BASE) MCG/ACT inhaler Inhale 2 Puffs by mouth every 4 hours as needed for Dyspnea. 1 Inhaler 11 Albuterol Sulfate 1.25 MG/3ML Inhalation Nebulization Solution Inhale 1.25 mg via nebulizer every 4hours as needed for Wheezing. 100 mL 1 Fluticasone Propionate 50 MCG/ACT Nasal Suspension (Flonase) ADMINISTER 2 SPRAYS INTO EACH NOSTRIL EVERY DAY 48 mL 1 oxygen IN GAS Use 2 L/min(Oxygen) as directed. Ventolin HFA 108 (90 Base) MCG/ACT Inhalation Aerosol Solution INHALE 2 PUFFS BY MOUTH IN THE MORNING, AT NOON, IN THE EVENING, AND BEFORE BEDTIME 18 g 5 Breo Ellipta 200-25 MCG/ACT Inhalation Aerosol Powder Breath Activated (fluticasone furoate-vilanterol) INHALE 1 PUFF BY MOUTH IN THE MORNING 180 Each 1 Omeprazole 40 MG Oral Capsule Delayed Release (PriLOSEC) TAKE 1 CAPSULE BY MOUTH EVERY DAY IN THE MORNING 90 Capsule 2 hydrOXYzine HCl 50 MG Oral Tablet TAKE BY MOUTH 1 TABLET 2 TIMES A DAY NEEDED FOR ANXIETY OR OTHER (AND SLEEP). 180 Tablet 2 Spironolactone 25 MG Oral Tablet (Aldactone) Take 0.5 Tablets by mouth in the morning. 30 Tablet 5 Ondansetron HCl 4 MG Oral Tablet (Zofran) TAKE 1 TABLET BY MOUTH EVERY 8 HOURS NEEDED FOR [id number] Tablet 0 busPIRone HCl 5 MG Oral Tablet (Buspar) TAKE 1 TABLET BY MOUTH IN THE MORNING AND BEFORE BEDTIME 180 Tablet 1 Citalopram Hydrobromide 20 MG Oral Tablet (CeleXA) TAKE 1 TABLET BY MOUTH EVERY DAY IN THE MORNING 90 Tablet 1 Furosemide 20 MG Oral Tablet (Lasix) TAKE 1 TABLET BY MOUTH IN THE MORNING AND IN THE EVENING 180 Tablet 1 Levothyroxine Sodium 137 MCG Oral Tablet TAKE 1 TABLET BY MOUTH FIRST THING IN THE MORNING 30 MINUTES PRIOR TO BREAKFAST OR OTHER MEDS 30 Tablet 0 Hydroxychloroquine Sulfate 200 MG Oral Tablet (Plaquenil) TAKE 1 TABLET BY MOUTH IN THE MORNING ANDIN THE EVENING 180 Tablet 1 traZODone HCl 50 MG Oral Tablet (Desyrel) Take 1 Tablet by mouth at bedtime. 30 Tablet 5 AMBULATORY MISCELLANEOUS MEDICATION 6.0 Shiley non fenestrated inner cannulas 30 Units 11 Misc. Devices 14 Fr suction tubing 20 Each 6 Misc. Devices 6.0 shiley DCFS inner cannulas 30 Each 5 Misc. Devices Shiley 6-0 DCFS uncuffed tracheotomy tube 1 Each 4 Misc. Devices velcro trach ties 10 Each 4 Misc. Devices Inner cannulas for trach 30 Each 3 Misc. Devices Passy Weston Valve 2 Each 3 Misc. Devices 6.0 shiley non fenestrated inner cannulas 30 Each 6 Misc. Devices Trach cleaning kit 8 Each 6 Misc. Devices Sig: Modudose 0.9% Sodium Chloride Solution, LONG-TERM, 5 mL, ampules Disp 1 Box of 100 each for trach care Class: Normal 1 Each 5 Misc. Devices Cool mist humidification 1 Each 0 No current facility-administered medications for this visit. Physical Exam: BP 110/60 | Pulse 72 | Temp 35.6 C (96 F) | Resp 18 | Wt 93.4 kg (206 lb) | BMI 27.94 kg/m | BSA 2.18 m General: alert, healthy, and no distress HENT: normocephalic, external ears normal, no mucosal erythema, no mucosal edema, moist mucosa, no oral ulcers Eye Exam: PERRL, EOMI, conjunctiva are pink and non-injected, sclera clear Neck: supple, no adenopathy Lymph: no palpable lymphadenopathy Heart: regular rate & rhythm, no murmur, and no gallops Lungs: clear to auscultation , no rales, wheezes or rhonchi Abdomen: abdomen soft and non-tender Extremities: no edema, no clubbing, no cyanosis Neuro Exam: alert & oriented x 3 with fluent speech, no focal motor/sensory deficits, gait normal Skin: Telangiectasias on face and hands Musculoskeletal Exam: . Normal Latest Reference Range & Units 01/23/24 14:00 Sodium 135 - 146 mmol/L 136 Potassium 3.5 - 5.1 mmol/L 3.7 Chloride 98 - 107 mmol/L 91 (L) CO2 22 - 32 mmol/L 30 BUN 6 - 20 mg/dL 6 Creatinine 0.6 - 1.2 mg/dL 1.1 Estimated Glomerular Filtration Rate >=60 mL/min 76 Anion Gap 7 - 15 mmol/L 15 Glucose 70 - 120 mg/dL 89 Calcium 8.4 - 10.2 mg/dL 9.2 Protein 6.0 - 8.3 g/dL 7.3 Latest Reference Range & Units 01/23/24 14:00 Albumin 3.8 - 5.0 g/dL 4.2 AST 10 - 50 U/L 19 ALT 10 - 50 U/L 11 Alkaline Phosphatase 35 - 130 U/L 261 (H) Bilirubin, Total <=1.2 mg/dL 0.8 Bilirubin, Direct 0.0 - 0.3 mg/dL 0.3 Assessment: (M34.9) Scleroderma, limited (HCC) (primary encounter diagnosis) Plan: BASIC SPIROMETRY, DIFFUSION CAPACITY (DLCO), LUNG VOLUMES (PLETHYSMOGRAPHY), PROTEIN/ CREATININE RATIO, URINE, ECHO, COMPLETE (2D), TRANS-THORACIC (Z79.899) Long-term use of Plaquenil Plan: HEPATIC FUNCTION PANEL, CBC WITH WBC DIFFERENTIAL (Z93.0) Tracheostomy status (HCC) (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 Vidal returns today for management of scleroderma. Seems to be doing overall well from a Scleroderma standpoint on Plaquenil 2 tablets daily. We will continue current medication regimen. Kidneyand liver function reviewed showing no indication of medication toxicity. Need updated CBC ordered at this time. We will get updated PFTs and echocardiogram. We will continue to monitor blood work yearly. Advised patient to contact clinic with any questions or concerns. Plan: 1. Labs: CBC 2. Testing: PFTs, echocardiogram 3. Follow-up 6 months 4. Can continue current medication regimen 5. Discussed the above in detail with the patient. All questions answered. 6. Contact clinic with any questions or concerns CC RAMIREZ Delatorre Department of Rheumatology The patient was discussed with me. I agree with the findings and plan as documented by Alfa GUZMÁN in this note. Mc Warren MD Rheumatology Department documented in this encounter Nursing Notes * Heaven Shaw RN - 01/24/2024 1:50 PM EDT Follow up visit today. Recent fall- Tripped over a toy in his house.No other complaints offered. documented in this encounter Plan of Treatment Upcoming Encounters Date Type Department Care Team (Late st Contact Info) Description 07/31/2024 2:00 PM EST Office Visit Rheumatology [address] [place] [phone] Alfa Gifford CRNP [address] [place] [address] [place] [address] Scheduled Orders Name Type Priority Associated Diagnoses Orde r Schedule CBC WITH WBC DIFFERENTIAL Lab Routine Long-term use of Plaquenil Expected: 01/24/2024, Expires: 01/23/2025 BASIC SPIROMETRY Procedures Routine Scleroderma, limited (HCC) Expected: 01/31/2024, Expires: 01/23/2025 DIFFUSION CAPACITY (DLCO) Procedures Routine Scleroderma, limited (HCC) Expected: 01/31/2024 (Approximate), Expires: 01/23/2025 LUNG VOLUMES (PLETHYSMOGRAPHY) Procedures Routine Scleroderma, limited (HCC) Expected: 01/31/2024 (Approximate), Expires: 01/23/2025 PROTEIN/ CREATININE RATIO, URINE Lab Routine Scleroderma, limited (HCC) Ordered: 01/24/2024 ECHO, COMPLETE (2D), TRANS-THORACIC Echocardiology Routine Scleroderma, limited (HCC) Expected: 02/24/2024, Expires: 07/26/2025 Health Maintenance Due Date Last Done Comments [...] Not on filedocumented as of this encounter Results * (ABNORMAL) HEPATIC FUNCTION PANEL (01/23/2024 2:00 PM EDT) Pathologist [facility] Albumin 4.2 3.8 - 5.0 g/dL 01/24/2024 3:16 PM EDT [facility] AST 19 10 - 50 U/L 01/24/2024 3:16 PM EDT [facility] Alkaline Phosphatase 261(H) 35 - 130 U/L 01/24/2024 3:16 PM EDT [facility] ALT 11 10 - 50 U/L 01/24/2024 3:16 PM EDT [facility] Bilirubin, Total 0.8 <=1.2 mg/dL 01/24/2024 3:16 PM EDT [facility] Bilirubin, Direct 0.3 0.0 - 0.3 mg/dL 01/24/2024 3:16 PM EDT [facility] Protein 7.3 6.0 - 8.3 g/dL 01/24/2024 3:16 PM EDT [facility] Blood Venous blood specimen / Unknown Venipuncture / Unknown 01/23/2024 2:00 PM EDT 01/23/2024 2:00 PM EDT Alfa GUZMÁN LAB BLOOD ORDERAB LES [facility] [address] [facility] [place] [address] documented in this encounter Visit Diagnoses Diagnosis Scleroderma, limited (HCC)- Primary Systemic sclerosis Long-term use of Plaquenil Encounter for long-term (current) use of other medications Tracheostomy status (HCC) Tracheostomy status 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
--- OUTSIDE RECORDS SUMMARY | 2024-04-10 03:30 | External Medical Summary ---
Author Name Unknown Address Unknown Organization K01:[facility] - [address] [place] [address] Laboratory Report Ordering Provider Test Date Status LYNN,DURA 01/23/2024 14:00:25 Final Observation Date Value Abnormality Reference (Units ) Status Vitamin B12 01/23/2024 14:00:25 [phone] (pg/mL) Final Performing Location [facility] [address] [place] [address]
--- OUTSIDE RECORDS SUMMARY | 2024-04-10 03:30 | External Medical Summary ---
Author Name Unknown Address Unknown Organization K01:[facility] [place] [address] [facility] [address] Laboratory Report Ordering Provider Test Date Status KRYSTIN ESQUIVEL 01/23/2024 14:00:25 Final Observation Date Value Abnormality Reference (Units ) Status TSH 01/23/2024 14:00:25 0.35 0.27-4.20 (uIU/mL) Final Performing Location [facility] - [address] [place] [address]
--- OUTSIDE RECORDS SUMMARY | 2024-04-10 03:30 | External Medical Summary | Summary of Care ---
Author Name Unknown Organization [facility] Address [address] [facility] [place] [address] Phone [phone] Care Team Providers Care Load Tallier Name Role Phone Eder Mittal MD Primary Care Provide r Reason for Visit * Reason Comments Re-Check Pt c/o uncontrolled movements in arms since he started a new anxiety med (?hydroxyzine). Encounter Details Date Type Department Care Team (Latest Contact Info) Description 01/23/2024 2:00 PM EDT Office Visit Family Medicine [address] [place] [address] Lory Garcia PA-C [address] [place] [address] [place] [address] COPD, group D, by GOLD 2017 classification (HCC)*; Alcoholic cirrhosis of liver without ascites (HCC); Major depressive disorder with single episode, in remission (HCC); Scleroderma (HCC); Thrombocytopenia (HCC); Acquired hypothyroidism; Alcohol abuse; Carcinoma of epiglottis (HCC); AMEYA (generalized anxiety disorder); History of ETOH abuse; Tracheostomy status (HCC); Other insomnia Allergies No known active allergiesdocumented [...] Each 3 04/06/2021 Active Misc. Devices Passy [place] Valve 2 Each 3 04/06/2021 Active Misc. Devices 6.0 shiley non fenestrated inner cannulas 30 Each 6 04/06/2021 Active Misc. Devices Trach cleaning kit 8 Each 6 04/06/2021 Active Misc. Devices Sig: Modudose 0.9% Sodium Chloride Solution, ALF, 5 mL, ampules Disp 1 Box of [...] mRNA, LNP-s, No Pre serve, 2-Dose Series ([employer]) 05/16/2021,03/07/2021 COVID-19, MRNA-LNP, 23-24, P F, 30 [...] Sign Reading Time Taken Comments Blood Pressure 112/62 01/23/2024 1:44 PM EDT Pulse 68 01/23/2024 1:44 PM EDT Temperature - - Respiratory Rate - - Oxygen Saturation 94% 01/23/2024 1:44 PM EDT Inhaled Oxygen Concentration - - Weight 94.2 kg (207 lb 11.2 oz) 01/23/2024 1:44 PM EDT Height - - Body Mass Index 28.17 01/17/2023 1:26 PM EDT documented in this [...] No 10/11/2022 documented as of this encounter Progress Notes * Lory Garcia PA-C - 01/23/2024 1:46 PM EDT Chief Complaint Patient presents with Re-Check Pt c/o uncontrolled movements in arms since he started a new anxiety med (?hydroxyzine). Pt here today for recheck. Pt with PMH of alcohol abuse, hypothyroid, epiglottis ca, tracheotomy, cirrhosis of liver, anxiety/depression, COPD, scleroderma, thrombocytopenia. Pt states that his hydroxyzine isn't helping. He would like to try something else. Refuses all BPAs. Will check some labs. Review of patient's allergies indicates: No Known Allergies Current Outpatient Medications Medication Sig Dispense Refill albuterol HFA (PROAIR HFA) 108 (90 BASE) MCG/ACT inhaler Inhale 2 Puffs by mouth every 4 hours as needed for Dyspnea. 1 Inhaler 11 AMBULATORY MISCELLANEOUS MEDICATION 6.0 Shiley non fenestrated inner cannulas 30 Units 11 Misc. Devices 14 Fr suction tubing 20 Each 6 Misc. Devices 6.0 shiley DCFS inner cannulas 30 Each 5 Misc. Devices Shiley 6-0 DCFS uncuffed tracheotomy tube 1 Each 4 Misc. Devices velcro trach ties 10 Each 4 Misc. Devices Inner cannulas for trach 30 Each 3 Misc. Devices Passy [place] Valve 2 Each 3 Misc. Devices 6.0 shiley non fenestrated inner cannulas 30 Each 6 Misc. Devices Trach cleaning kit 8 Each 6 Misc. Devices Sig: Modudose 0.9% Sodium Chloride Solution, ALF, 5 mL, ampules Disp 1 Box of 100 each for trach care Class: Normal 1 Each 5 Misc. Devices Cool mist humidification 1 Each 0 Albuterol Sulfate 1.25 MG/3ML Inhalation Nebulization Solution [...] BY MOUTH EVERY 8 HOURS NEEDED FOR [id number] Tablet 0 busPIRone HCl 5 MG Oral [...] MORNING ANDIN THE EVENING 180 Tablet 1 No current facility-administered medications for this visit. 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 Other Topics Concern Not on file Social History Narrative 1 dog and 1 cat in his home. No mold. Social Determinants of Health Financial Resource Strain: Not on file Food Insecurity: Not on file Transportation Needs: Not on file Social Connections: Unknown (01/23/2024) Social Connections How often do you feel lonely or isolated from those around you? (Adult - for ages 18 years and over): Not on file Housing Stability: Not on file O:Blood pressure 112/62, pulse 68, weight 94.2 kg (207 lb 11.2 oz), SpO2 94%. GENERAL: alert, healthy, and no distress NECK: supple, no adenopathy, no bruits, thyroid normal size, non-tender, without nodularity EYES: PERRLA, conjunctiva are pink and non-injected, sclera clear EARS: External ears normal, Canals clear, TM's Normal NOSE: no mucosal erythema, no mucosal edema, no purulent discharge OROPHARYNX: no exudate, no erythema, lips, buccal mucosa, and tongue normal, and mucous membranes are moist HEART: regular rate & rhythm, no murmur, and no gallops LUNGS: chest symmetric with normal AP diameter, no chest deformities noted, no chest wall tenderness, lungs clear to auscultation A:COPD, group D, by GOLD 2017 classification (HCC) (Primary) Alcoholic cirrhosis of liver without ascites (HCC) Major depressive disorder with single episode, in remission (HCC) Scleroderma (HCC) Thrombocytopenia (HCC) Acquired hypothyroidism Alcohol abuse Carcinoma of epiglottis (HCC) AMEYA (generalized anxiety disorder) History of ETOH abuse Tracheostomy status (HCC) Other insomnia - traZODone HCl 50 MG Oral Tablet (Desyrel); Take 1 Tablet by mouth at bedtime. Try trazodone. Recheck in 6 months. Any questions/problems, please call. If anything changes, worsens, develops new sx, please call [facility]. Follow Up: Return if symptoms worsen or fail to improve. Lory Garcia PA-C documented in this encounter Plan of Treatment Upcoming Encounters Date Type Department Care Team (Late st Contact Info) Description 01/24/2024 2:00 PM EDT Office Visit Rheumatology [address] [place] [address] Alfa Gifford CRNP [address] [place] [address] [place] [address] Health Maintenance Due Date Last Done Comments [...] as of this encounter Visit Diagnoses Diagnosis COPD, group D, by GOLD 2017 classification (HCC)- Primary Alcoholic cirrhosis of liver without ascites (HCC) Alcoholic cirrhosis of liver Major depressive disorder with single episode, in remission (HCC) Scleroderma (HCC) Systemic sclerosis Thrombocytopenia (HCC) Thrombocytopenia, unspecified Acquired hypothyroidism Unspecified hypothyroidism Alcohol abuse Alcohol abuse, unspecified 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
--- OUTSIDE RECORDS SUMMARY | 2024-04-10 03:30 | External Medical Summary ---
Author Name Unknown Address Unknown Organization K01:[facility] [place] [address] [place] [address] Laboratory Report Ordering Provider Test Date Status EVA LEAL 01/23/2024 14:00:25 Final Observation Date Value Abnormality Reference (Units ) Status Albumin 01/23/2024 14:00:25 4.2 3.8-5.0 (g/dL) Final AST (Aspartate aminotransferase) 01/23/2024 14:00:25 19 10-50 (U/L) Final Alk Phos 01/23/2024 14:00:25 261 Above high normal 35-130 (U/L) Final ALT (Alanine aminotransferase) 01/23/2024 14:00:25 11 10-50 (U/L) Final Bilirubin, Total 01/23/2024 14:00:25 0.8 <=1.2 (mg/dL) Final Bilirubin, Direct 01/23/2024 14:00:25 0.3 0.0-0.3 (mg/dL) Final Protein 01/23/2024 14:00:25 7.3 6.0-8.3 (g/dL) Final Performing Location LABORATORY C - [address] [place] [address]
--- OUTSIDE RECORDS SUMMARY | 2024-04-10 03:30 | External Medical Summary ---
Author Name Unknown Address Unknown Organization K01:[facility] [place] [address] [place] [address] Laboratory Report Ordering Provider Test Date Status KELSEY CHIU 01/23/2024 14:00:25 Final Observation Date Value Abnormality Reference (Units ) Status BUN 01/23/2024 14:00:25 6 6-20 (mg/dL) Final Creatinine 01/23/2024 14:00:25 1.1 0.6-1.2 (mg/dL) Final Glomerular filtration rate/1.73 sq M.predicted [Volume Rate/Area] in Serum, Plasma or Blood by Creatinine-based formula (CKD-EPI) 01/23/2024 14:00:25 76 >=60 (mL/min) Final eGFR is calculated based on the CKD-EPI 2020 equation. Sodium 01/23/2024 14:00:25 136 135-146 (m mol/L) Final Potassium 01/23/2024 14:00:25 3.7 3.5-5.1 (m mol/L) Final Cl 01/23/2024 14:00:25 91 Below low normal 98- 107 (mmol/L) Final CO2 01/23/2024 14:00:25 30 22-32 (mmo l/L) Final Anion gap 01/23/2024 14:00:25 15 7-15 (mmol /L) Final Glucose 01/23/2024 14:00:25 89 70-120 (mg /dL) Final Calcium 01/23/2024 14:00:25 9.2 8.4-10.2 ( mg/dL) Final Performing Location [facility] [place] [address] [place] [address]
--- OUTSIDE RECORDS SUMMARY | 2024-04-10 03:30 | External Medical Summary ---
Author Name Unknown Address Unknown Organization K01:LAB[facility]ATORY [facility] - [address] [place] [address] Laboratory Report Ordering Provider Test Date Status GHULAM NAVA 01/23/2024 14:00:25 Final Observation Date Value Abnormality Reference (Units ) Status MYCODE SPECIMEN-SST 01/23/2024 14:00:25 Freezing of extracted DNA, whole blood and/or serum. Final Performing Location [facility] - [address] [place] [address]
--- OUTSIDE RECORDS SUMMARY | 2024-04-10 03:30 | External Medical Summary | Summary of Care ---
Author Name Unknown Organization [facility] Address [address] [facility] [place] [address] Phone [phone] Care Team Providers Care Sanitizer Name Role Phone Eder Mittal MD Primary Care Provide r Reason for Visit * Reason Onset Date Comments Medication Refill 01/15/2024 Encounter Details Date Type Department Care Team (Late st Contact Info) Description 01/15/2024 Refill Rheumatology [place] [address] [facility] [place] [address] Mc Warren MD [facility] [email or web address] [place] [address] Allergies No known active allergiesdocumented as of this encounter (statuses as of 01/21/2024) Medications Medication Sig Dispensed Refills Start Date [...] Devices Sig: Modudose 0.9% Sodium Chloride Solution, FDC, 5 mL, ampules Disp 1 Box of [...] AND IN THE EVENING 180 Tablet 1 3 01/15/20 24 Discontinu ed(Refill) documented as of this encounter (statuses as of 01/21/2024) Active Problems Problem Noted Date Diagnosed Date [...] as of this encounter (statuses as of 01/21/2024) Resolved Problems Problem Noted Date Diagnosed Date [...] as of this encounter (statuses as of 01/21/2024) Immunizations Name Administration Dates Next Due COVID-19 mRNA, LNP-s, No Pre serve, 2-Dose Series ([employer]) 05/16/2021,03/07/2021 COVID-19, MRNA-LNP, 23-24, P F, 30 [...] encounter Miscellaneous Notes * Telephone Encounter - Heath Sheth, SHAW - 01/21/2024 8:29 AM EDT I called # [phone] for Evans, this # has been changed or disconnected. I called Paula #, vm is full unable to leave a message. * Telephone Encounter - Janna Price OSA - 01/20/2024 10:39 AM EDT Voicemail is full. Could not leave message. Called to schedule a follow up appointment with Rheumatology. [facility] letter sent. * Telephone Encounter - Mc Warren MD - 01/17/2024 12:27 PM EDT Refilled - please schedule with any provider in or * Telephone Encounter - Ambrocio Guevara RPh - 01/16/2024 12:00 PM EDTPending Prescriptions: Disp Refills Hydroxychloroquine Sulfate 200 MG Oral Tab*180 Ta*1 Sig: TAKE 1 TABLET BY MOUTH IN THE MORNING AND IN THE EVENING * Telephone Encounter - Ambrocio Guevara RPh - 01/16/2024 11:52 AM EDT Rheumatology: Refill Request(s) Per review of the refill parameters, Medication was NOT refilled d/t following concern: Former patient of Yudy Elliott. Routing to scheduling as well Ambrocio Guevara RPh [facility] Clinical Pharmacist Rheumatology Department 01/16/2024,11:59 AM documented in this encounter Plan of Treatment Upcoming Encounters Date Type Department Care Team (Late st Contact Info) Description 01/23/2024 2:00 PM EDT Office Visit Family Medicine [address] [place] [address] Lory Garcia PA-C [address] [place] [address] [place] [address] Health Maintenance Due Date Last Done Comments Pneumococcal Vaccine: Pediatrics (0 to 5 Years) and At-Risk Patients (6 to 64 Years) (1 of 2 - PCV) 1973 O2 ASSESSMENT COMPLETED IN PAST YEAR FOR COPD 1985 DTaP,Tdap,and Td Vaccines (1 - Tdap) 1986 Hepatitis B Vaccine (1 of 3 - 19+ 3-dose series) 1986 Zoster Vaccines (1 of 2) 1986 Cologuard 2012 Colonoscopy 2012 Colorectal Cancer Screening 2012 Fecal Occult Blood Test 2012 Sigmoidoscopy 2012 Depression Monitoring 02/19/2019 02/19/2018 TSH 10/07/2023 10/06/2022, 10/22, 01/20/2021, Additional history exists *COPD SEVERITY VERIFIED BY PFT 01/05/2024 *CXR OR CT FOR COPD EVER 01/05/2024 Influenza Vaccine (FLU shot) (#1) 2024 04/23/2023, 04/25/2022, 02/23/2021, Additional history exists Diabetes Screening 01/16/2026 01/16/2023, 0 10/31/2022, 10/24/2022, Additional history exists Lipid Panel 11/09/2026 11/09/2021, 10/09/2018 HIV Screening Completed 06/25/2017 Hepatitis C Screening Completed 02/02/2022 , 03/03/2021, 03/03/2021, Additional history exists Alpha-1 Antitrypsin Completed 04/30/2022 [...] Advance Directives occurred with: Patient Care Teams Sanitizer Relationship Specialty Start Date End Date Eder Mittal MD [address] [place] [address] [place] [address] PCP - General Family Medicine 12/22/21 documented as of this encounter
--- OUTSIDE RECORDS SUMMARY | 2024-04-10 03:30 | External Medical Summary | Summary of Care ---
Author Name Unknown Organization [facility] Address [address] [facility] [place] [address] Phone [phone] Care Team Providers Care Rn Interventional Name Role Phone Eder Mittal MD Primary Care Provide r Reason for Visit * Reason Onset Date Comments Medication Refill 01/15/2024 Encounter Details Date Type Department Care Team (Late st Contact Info) Description 01/15/2024 Refill Rheumatology [place] [address] [employer] [place] [address] Mc Warren MD [facility] [employer] [place] [address] Allergies No known active allergiesdocumented as of [...] Each 3 1 Active Misc. Devices Passy [place] Valve 2 Each 3 1 Active Misc. [...] mRNA, LNP-s, No Pre serve, 2-Dose Series ([employer]) 05/16/2021,03/07/2021 COVID-19, MRNA-LNP, 23-24, P F, 30 [...] Telephone Encounter - Heath Sheth, SHAW - 01/23/2024 1:56 PM EDT I spoke to Evans when he was in the clinic . I have pt scheduled and he is aware. * Telephone Encounter - Heath Sheth OSA - 01/21/2024 8:29 AM EDT I called # [phone] for Evans, this # has been changed or disconnected. I called Paula Toro, vm is full unable to leave a message. * Telephone Encounter - Janna Price OSA - 01/20/2024 10:39 AM EDT Voicemail is full. Could not leave message. Called to schedule a follow up appointment with Rheumatology. [facility] letter sent. * Telephone Encounter - Mc Warren MD - 01/17/2024 12:27 PM EDT Refilled - please schedule with any provider in or PF * Telephone Encounter - Ambrocio Guevara RPh [...] to scheduling as well Ambrocio Guevara RPh [facility] Clinical Pharmacist Rheumatology Department 01/16/2024,11:59 AM documented in this encounter Plan of Treatment Upcoming Encounters Date Type Department Care Team (Latest Contact Info) Description 01/23/2024 2:00 PM EDT Office Visit Family Medicine [address] [place] [address] Lory Garcia PA-C [address] [place] [address] [place] [phone] COPD, group D, by GOLD 2017 classification (HCC)*; Alcoholic cirrhosis of liver without ascites (HCC); Major depressive disorder with single episode, in remission (HCC); Scleroderma (HCC); Thrombocytopenia (HCC); Acquired hypothyroidism; Alcohol abuse; Carcinoma of epiglottis (HCC); AMEYA (generalized anxiety disorder); History of ETOH abuse; Tracheostomy status (HCC); Other insomnia 01/23/2024 2:20 PM EDT Laboratory Laboratory [address] [place] [phone] [facility] [address] [place] [address] Arrived 01/24/2024 2:00 PM EDT Office Visit Rheumatology [address] [place] [phone] Alfa Gifford CRNP [address] [place] [address] [place] [address] Health Maintenance Due Date Last Done Comments [...] Advance Directives occurred with: Patient Care Teams Rn Interventional Relationship Specialty Start Date End Date Eder Mittal MD [address] [place] [address] [place] [phone] PCP - General Family Medicine 12/22/21 documented as of this encounter
--- OUTSIDE RECORDS SUMMARY | 2024-04-10 03:30 | External Medical Summary | Summary of Care ---
Author Name Unknown Organization [facility] Address [address] [facility] [place] [address] Phone [phone] Care Team Providers Care Corn Cutter Name Role Phone Eder Mittal MD Primary Care Provide r Reason for Referral * Precert (Within 10 days (routine)) - Authorized Specialty Diagnoses / Procedures Referred By Contac t Referred To Contact Cardiac Studies Diagnoses Scleroderma, limited (HCC) Procedures ECHO, COMPLETE (2D), TRANS-THORACIC Alfa Gifford CRNP [address] [employer] [facility] [place] [address] Referral ID Status Reason Start Date Expiration Date V isits Requested Visits Authorized [id number] Authorized Precert 02/24/2024 999 999 Reason for Visit * Reason Comments Follow Up Encounter Details Date Type Department Care Team (Late st Contact Info) Description 01/24/2024 2:00 PM EDT Office Visit Rheumatology [address] [place] [phone] Alfa Gifford CRNP [address] [facility] [place] [address] Scleroderma, limited (HCC)*; Long-term use of Plaquenil; Tracheostomy status (HCC); IgG monoclonal protein disorder; Cryoglobulinemia (HCC); Carcinoma of epiglottis (HCC) Allergies No known active allergiesdocumented as of this encounter (statuses as of 01/24/2024) Medications Medication Sig Dispensed Refills Start Date [...] Each 3 04/06/2021 Active Misc. Devices Passy [place] Valve 2 Each 3 04/06/2021 Active Misc. Devices 6.0 shiley non fenestrated inner cannulas 30 Each 6 04/06/2021 Active Misc. Devices Trach cleaning kit 8 Each 6 04/06/2021 Active Misc. Devices Sig: Modudose 0.9% Sodium Chloride Solution, NURSING HOME, 5 mL, ampules Disp 1 Box of [...] as of this encounter (statuses as of 01/24/2024) Active Problems Problem Noted Date Diagnosed Date [...] as of this encounter (statuses as of 01/24/2024) Resolved Problems Problem Noted Date Diagnosed Date [...] as of this encounter (statuses as of 01/24/2024) Immunizations Name Administration Dates Next Due COVID-19 mRNA, LNP-s, No Pre serve, 2-Dose Series ([employer]) 05/16/2021,03/07/2021 COVID-19, MRNA-LNP, 23-24, P F, 30 [...] CBC Call to schedule ECHO and PFT [facility] Follow up 6 months Continue current dose [...] BY MOUTH EVERY 8 HOURS NEEDED FOR [id number] Tablet 0 busPIRone HCl 5 MG Oral [...] trach 30 Each 3 Misc. Devices Passy [place] Valve 2 Each 3 Misc. Devices 6.0 shiley non fenestrated inner cannulas 30 Each 6 Misc. Devices Trach cleaning kit 8 Each 6 Misc. Devices Sig: Modudose 0.9% Sodium Chloride Solution, NURSING HOME, 5 mL, ampules Disp 1 Box of [...] to be doing overall well from a scarred or us standpoint on Plaquenil 2 tablets daily. We will continue current medication regimen. Kidney and liver function reviewed showing no indication of [...] 07/31/2024 2:00 PM EST Office Visit Rheumatology [address] [place] [phone] Alfa Gifford CRNP [address] [place] [address] [place] [address] Scheduled Orders Name Type Priority Associated Diagnoses [...] FUNCTION PANEL (01/23/2024 2:00 PM EDT) Pathologist [facility] Albumin 4.2 3.8 - 5.0 g/dL 01/24/2024 [...] BLOOD ORDERAB LES [facility] [address] [facility] [place] [address] documented in this encounter Visit Diagnoses [...] Advance Directives occurred with: Patient Care Teams Corn Cutter Relationship Specialty Start Date End Date Eder Mittal MD [address] [place] [address] [place] [address] PCP - General Family Medicine 12/22/21 documented as of this encounter"
--- OUTSIDE RECORDS SUMMARY | 2024-04-10 03:30 | External Medical Summary ---
Author Name Unknown Address Unknown Organization K01:LABORATORY C - [address] [place] [address] Laboratory Report Ordering Provider Test Date Status GHULAM NAVA 01/23/2024 14:00:25 Final Observation Date Value Abnormality Reference (Units ) Status MYCODE SPECIMEN-SST 01/23/2024 14:00:25 Freezing of extracted DNA, whole blood and/or serum. Final Performing Location [facility] - [address] [place] [address]
--- OUTSIDE RECORDS SUMMARY | 2024-04-10 03:30 | External Medical Summary | Summary of Care ---
Author Name Unknown Organization [facility] Address [address] [facility] [place] [address] Phone [phone] Care Team Providers Care Director Database Name Role Phone Eder Mittal MD Primary Care Provide r Reason for Visit * Reason Onset Date Comments Medication Refill 01/15/2024 Encounter Details Date Type Department Care Team (Late st Contact Info) Description 01/15/2024 Refill Rheumatology [place] [id number] [email or web address] [place] [address] [place] MD [facility] [place] [address] Allergies No known active allergiesdocumented as of this encounter (statuses as of 01/20/2024) Medications Medication Sig Dispensed Refills Start Date [...] Devices Sig: Modudose 0.9% Sodium Chloride Solution, MCFP, 5 mL, ampules Disp 1 Box of [...] as of this encounter (statuses as of 01/20/2024) Active Problems Problem Noted Date Diagnosed Date [...] as of this encounter (statuses as of 01/20/2024) Resolved Problems Problem Noted Date Diagnosed Date [...] as of this encounter (statuses as of 01/20/2024) Immunizations Name Administration Dates Next Due COVID-19 mRNA, LNP-s, No Pre serve, 2-Dose Series ([employer]) 05/16/2021,03/07/2021 COVID-19, MRNA-LNP, 23-24, P F, 30 [...] encounter Miscellaneous Notes * Telephone Encounter - Janna Price, SHAW - 01/20/2024 10:39 AM EDT Voicemail is [...] to scheduling as well Ambrocio Guevara RPh [facility] Clinical Pharmacist Rheumatology Department 01/16/2024,11:59 AM documented in this encounter Plan of Treatment Upcoming Encounters Date Type Department Care Team (Late st Contact Info) Description 01/23/2024 2:00 PM EDT Office Visit [address] [place] [address] Lory Garcia PA-C [address] [place] [address] [place] [id number] Health Maintenance Due Date Last Done Comments [...] *CXR OR CT FOR COPD EVER 01/05/2024 O2 ASSESSMENT COMPLETED IN PAST YEAR FOR COPD 01/18/2024 01/17/2023 Influenza Vaccine (FLU shot) (#1) 2024 04/23/2023, [...] Advance Directives occurred with: Patient Care Teams Director Database Relationship Specialty Start Date End Date Eder Mittal MD [address] [place] [address] [place] [phone] PCP - General Family Medicine 12/22/21 documented as of this encounter
--- OUTSIDE RECORDS SUMMARY | 2024-04-10 03:31 | External Medical Summary | Summary of Care ---
Author Name Unknown Organization [facility] Address [address] [facility] [place] [address] Phone [phone] Care Team Providers Care Food Checkers And Cashiers Supervisor Name Role Phone Eder Mittal MD Primary Care Provide r Encounter Details Date Type Department Care Team (Late st Contact Info) Description 11/27/2023 External Data Patient Risk Medial Allergies No known active allergiesdocumented as of this encounter (statuses as of 11/27/2023) Medications Medication Sig Dispensed Refills Start Date [...] Devices Sig: Modudose 0.9% Sodium Chloride Solution, FPC, 5 mL, ampules Disp 1 Box of [...] Use 2 L/min(Oxygen) as directed. 10/20/2022 Active Hydroxychloroquine Sulfate 200 MG Oral Tablet (Plaquenil) TAKE 1 TABLET BY MOUTH IN THE MORNING AND IN THE EVENING 180 Tablet 1 11/16/2022 Active Ventolin HFA 108 (90 Base) MCG/ACT [...] THE MORNING 90 Tablet 1 11/04/2023 Active Levothyroxine Sodium 137 MCG Oral TabletIndications:A cquired hypothyroidism TAKE 1 TABLET BY MOUTH FIRST THING IN THE MORNING 30 MINUTES PRIOR TO BREAKFAST OR OTHER MEDS 30 Tablet 11/04/2023 Active Furosemide 20 MG Oral Tablet (Lasix)Indications: Recurrent pleural effusion TAKE 1 TABLET BY MOUTH IN THE MORNING AND IN THE EVENING 180 Tablet 11/04/2023 Active documented as of this encounter (statuses as of 11/27/2023) Active Problems Problem Noted Date Diagnosed Date [...] as of this encounter (statuses as of 11/27/2023) Resolved Problems Problem Noted Date Diagnosed Date [...] as of this encounter (statuses as of 11/27/2023) Immunizations Name Administration Dates Next Due COVID-19 mRNA, LNP-s, No Pre serve, 2-Dose Series ([employer]) 05/16/2021,03/07/2021 COVID-19, MRNA-LNP, 23-24, P F, 30 MCG/0.3 mL, 12 YRS AND ABOVE, IM ([employer]-Comirnaty) 04/23/2023 Seasonal Influenza, PF, 6 M & [...] as of this encounter Plan of Treatment Health Maintenance Due Date Last Done Comments Pneumococcal Vaccine: Pediatrics (0 to 5 Years) and At-Risk Patients (6 to 64 Years) (1 of 2 - PCV) 1973 DTaP,Tdap,and Td Vaccines (1 - Tdap) 1986 Hepatitis B (1 of 3 - 19+ 3-dose series) 1986 Zoster Vaccines (1 of 2) 1986 Cologuard 2012 Colonoscopy 2012 Colorectal Cancer Screening 2012 Fecal Occult Blood Test 2012 Sigmoidoscopy 2012 TSH 10/07/2023 10/06/2022, 10/22, 01/20/2021, Additional history exists O2 ASSESSMENT COMPLETED IN PAST YEAR FOR COPD 01/18/2024 01/17/2023 Diabetes Screening 01/16/2026 01/16/2023, 0 10/31/2022, 10/24/2022, Additional history exists Lipid Panel 11/09/2026 11/09/2021, 10/09/2018 Alpha-1 Antitrypsin Completed 04/30/2022 COVID-19 Vaccine Completed 04/23/2023, , 03/07/2021 Influenza Vaccine (FLU shot) Completed , 04/25/2022, 02/23/2021, Additional history exists GARDASIL-HPV IMMUNIZATION SERIES Aged Out No longer eligible based on [...] Advance Directives occurred with: Patient Care Teams Food Checkers And Cashiers Supervisor Relationship Specialty Start Date End Date Eder Mittal MD [address] [place] [address] [place] [id number] PCP - General Family Medicine 12/22/21 documented as of this encounter
--- OUTSIDE RECORDS SUMMARY | 2024-04-10 03:31 | External Medical Summary | Summary of Care ---
Author Name Unknown Organization [facility] Address [address] [facility] [place] [address] Phone [phone] Care Team Providers Care School Commissioner Name Role Phone Eder Mittal MD Primary Care Provide r Reason for Visit * Reason Comments eRx-Medication Refill Encounter Details Date Type Department Care Team (Late st Contact Info) Description 11/01/2023 Refill Family Practice [facility] [address] [facility] [place] [address] Eder Mittal MD [address] [place] [address] [place] [phone] Acquired hypothyroidism Allergies No known active allergiesdocumented as of this encounter (statuses as of 11/05/2023) Medications Medication Sig Dispensed Refills Start Date [...] Each 3 04/06/20 Active Misc. Devices Passy [place] Valve 2 Each 3 04/06/20 Active Misc. Devices 6.0 shiley non fenestrated inner cannulas 30 Each 6 04/06/20 Active Misc. Devices Trach cleaning kit 8 Each 6 04/06/20 Active Misc. Devices Sig: Modudose 0.9% Sodium Chloride Solution, SNF, 5 mL, ampules Disp 1 Box of 100 each for trach care Class: Normal 1 Each 5 04/06/20 Active Misc. Devices Cool mist humidification 1 Each 0 04/06/20 Active Albuterol Sulfate 1.25 MG/3ML Inhalation Nebulization SolutionIndication s:COPD, mild (HCC) Inhale 1.25 mg via nebulizer every 4 hours as needed for Wheezing. 100 mL 1 06/21/20 22 Active Fluticasone Propionate 50 MCG/ACT Nasal Suspension (Flonase)Indicatio ns:Sinus pain ADMINISTER 2 SPRAYS INTO EACH NOSTRIL EVERY DAY 48 mL 1 07/12/19 23 Active oxygen IN GAS Use 2 L/min(Oxygen) as directed. 0 10/21/19 23 Active Hydroxychloroquine Sulfate 200 MG Oral Tablet (Plaquenil) TAKE 1 TABLET BY MOUTH IN THE MORNING AND IN THE EVENING 180 Tablet 1 11/17/19 23 Active Ventolin HFA 108 (90 Base) MCG/ACT Inhalation Aerosol SolutionIndication s:COPD, mild (HCC) INHALE 2 PUFFS BY MOUTH IN THE MORNING, AT NOON, IN THE EVENING, AND BEFORE BEDTIME 18 g 5 03/28/20 23 Active Breo Ellipta 200-25 MCG/ACT Inhalation Aerosol Powder Breath Activated (fluticasone furoate-vilanterol ) INHALE 1 PUFF BY MOUTH IN THE MORNING 180 Each 1 06/25/19 24 Active Omeprazole 40 MG Oral Capsule Delayed [...] 8 HOURS NEEDED FOR NAUSEA 40 Tablet 0 09/03/19 24 Active Citalopram Hydrobromide 20 MG Oral Tablet (CeleXA)Indication s:AMEYA (generalized anxiety disorder),Major depressive disorder with single episode, in remission (HCC) TAKE 1 TABLET BY MOUTH EVERY DAY IN THE MORNING 90 Tablet 1 11/04/19 24 Active Levothyroxine Sodium 137 MCG Oral TabletIndications: Acquired hypothyroidism TAKE 1 TABLET BY MOUTH FIRST THING IN THE MORNING 30 MINUTES PRIOR TO BREAKFAST OR OTHER MEDS 30 Tablet 0 11/04/19 24 Active Furosemide 20 MG Oral Tablet (Lasix)Indications :Recurrent pleural effusion TAKE 1 TABLET BY MOUTH IN THE MORNING AND IN THE EVENING 180 Tablet 1 11/04/19 24 Active Levothyroxine Sodium 137 MCG Oral TabletIndications: Acquired hypothyroidism TAKE 1 TAB BY MOUTH DAILY FIRST THING IN AM (ATLEAST 30MINS PRIOR TO BREAKSFAST OR OTHER MEDS) 90 Tablet 1 03/22/20 23 024 Discontinued busPIRone HCl 5 MG Oral Tablet (Buspar)Indication s:AMEYA (generalized anxiety disorder),Major depressive disorder with single episode, in remission (HCC) Take 1 Tablet by mouth in the morning and 1 Tablet before bedtime. 60 Tablet 5 04/23/20 23 024 Discontinued documented as of this encounter (statuses as of 11/05/2023) Active Problems Problem Noted Date Diagnosed Date [...] as of this encounter (statuses as of 11/05/2023) Resolved Problems Problem Noted Date Diagnosed Date [...] as of this encounter (statuses as of 11/05/2023) Immunizations Name Administration Dates Next Due COVID-19 mRNA, LNP-s, No Pre serve, 2-Dose Series ([employer]) 05/16/2021,03/07/2021 COVID-19, MRNA-LNP, 23-24, P F, 30 [...] encounter Miscellaneous Notes * Telephone Encounter - Esther Leong CPhT - 11/05/2023 3:42 PM EDT Received message from [facility] regarding patient needing appointment and labs. Call Placed, Unable to reach pt, as there was no answer and no VM available to leave message. Sent the patient a MyG message to advise. Thank you, Leighann Leong [facility] Web Design Instructor II Centralized Clinical Pharmacy Services (CCPS) (Formerly Telepharmacy) 11/05/2023,3:42 PM * Telephone Encounter - Janeth Mcclelland [facility] - 11/04/2023 6:42 AM EDTSigned Prescriptions: Disp Refills Levothyroxine Sodium 137 MCG Oral Tablet 30 Tab*0 Sig: TAKE 1 TABLET BY MOUTH FIRST THING IN THE MORNING 30 MINUTES PRIOR TO BREAKFAST OR OTHER MEDS Authorizing Provider: EDER MITTAL User: JANETH MCCLELLAND * Telephone Encounter - Janeth Mcclelland [facility] - 11/04/2023 6:41 AM EDT Provided 30 days supply with 0 refill. Per refill protocol patient should have TSH on file within past year. Reviewed AMP report, Care Gaps/Health Maintenance, medications list, and for any routine labs typically ordered for this patient. Lab orders placed. Please contact patient to schedule office visit with PRIMARY CARE and advise of labs ordered for blood draw.. Fasting is not required. Advise to obtain labs before requesting the next refill. Last Visit: 05/23/2021 (in office), Visit date not found (telemedicine) Next Visit: Visit date not found Thank you, Janeth Mcclelland, PharmD Clinical Pharmacist [facility] ([facility]) (Formerly Telepharmacy) [phone] 11/04/2023, 6:41 AM documented in this encounter Plan of Treatment Scheduled Orders Name Type Priority Associated Diagnoses Orde r Schedule TSH WITH FREE T4 IF INDICATED Lab Routine Acquired hypothyroidism Expected: 11/04/2023, Expires: 11/03/2024 Health Maintenance Due Date Last Done Comments [...] hypothyroidism documented in this encounter Advance Directives Latest Code Status on File Code Status Date Activated Date Inactivated Comments Full Code 10/11/2022 5:09 AM 10/20/2022 8:49 PM This order reflects the patients wishes and were consensually agreed upon. Question Answer Comments Discussion of Advance Directives occurred with: Patient Code Status History Code Status Date Activated Date Inactivated Comments Full Code 10/03/2022 12:03 AM 10/11/2022 4:30 AM This order reflects the patients wishes and were consensually agreed upon. Question Answer Comments Discussion of Advance Directives occurred with: Patient Care Teams School Commissioner Relationship Specialty Start Date End Date Eder Mittal MD [address] [place] [address] [place] [phone] PCP - General Family Medicine 12/22/21 documented as of this encounter
--- OUTSIDE RECORDS SUMMARY | 2024-04-10 03:31 | External Medical Summary | Summary of Care ---
Author Name Unknown Organization [facility] Address [address] [facility] [place] [address] Phone [phone] Care Team Providers Care Stamp Classifier Name Role Phone Eder Mittal MD Primary Care Provide r Reason for Visit * Reason Comments eRx-Medication Refill Encounter Details Date Type Department Care Team (Late st Contact Info) Description 01/13/2024 Refill Family Medicine [address] [phone] Eder Mittal MD [address] [place] [address] [place] [id number] Encounter for long-term (current) use of medications*; Acquired hypothyroidism Allergies No known active allergiesdocumented as of this encounter (statuses as of 01/14/2024) Medications Medication Sig Dispensed Refills Start Date [...] DCFS inner cannulas 30 Each 5 04/06/20 Active Misc. Devices Shiley 6-0 DCFS uncuffed tracheotomy tube 1 Each 4 04/06/20 Active Misc. Devices velcro trach ties 10 Each 4 04/06/20 Active Misc. Devices Inner cannulas for trach 30 Each 3 04/06/20 Active Misc. Devices Passy [place] Valve 2 Each 3 04/06/20 Active Misc. Devices 6.0 shiley non fenestrated inner cannulas 30 Each 6 04/06/20 Active Misc. Devices Trach cleaning kit 8 Each 6 04/06/20 Active Misc. Devices Sig: Modudose 0.9% Sodium Chloride Solution, MCC, 5 mL, ampules Disp 1 Box of [...] 2 L/min(Oxygen) as directed. 10/21/19 23 Active Hydroxychloroquine Sulfate 200 MG [...] TO BREAKFAST OR OTHER MEDS 30 Tablet 01/14/20 24 Active Levothyroxine Sodium 137 MCG Oral TabletIndications: Acquired hypothyroidism TAKE 1 TABLET BY MOUTH FIRST THING IN THE MORNING 30 MINUTES PRIOR TO BREAKFAST OR OTHER MEDS 30 Tablet 11/04/19 24 024 Discontinued documented as of this encounter (statuses as of 01/14/2024) Active Problems Problem Noted Date Diagnosed Date [...] as of this encounter (statuses as of 01/14/2024) Resolved Problems Problem Noted Date Diagnosed Date [...] as of this encounter (statuses as of 01/14/2024) Immunizations Name Administration Dates Next Due COVID-19 mRNA, LNP-s, No Pre serve, 2-Dose Series ([email or web address]) 05/16/2021,03/07/2021 COVID-19, MRNA-LNP, 23-24, P F, 30 [...] Telephone Encounter - Eder Mittal MD - 01/14/2024 12:38 PM EDT Signed Prescriptions: Disp Refills Levothyroxine Sodium 137 MCG Oral Tablet 30 Tab*0 Sig: TAKE 1 TABLET BY MOUTH FIRST THING IN THE MORNING 30 MINUTES PRIOR TO BREAKFAST OR OTHER MEDS Authorizing Provider: EDER MITTAL * Telephone Encounter - Juanita Jose PHARM Tech - 01/14/2024 12:33 PM EDT Pending Prescriptions: Disp Refills Levothyroxine Sodium 137 MCG Oral Tablet 30 Tab*0 Sig: TAKE 1 TABLET BY MOUTH FIRST THING IN THE MORNING 30 MINUTES PRIOR TO BREAKFAST OR OTHER MEDS * Telephone Encounter - Juanita Jose swimming pool servicer - 01/14/2024 12:32 PM EDT Received message from [facility] regarding patient needing labs. Call Placed, Unable to reach pt, as therewas no answer and no VM available to leave message. Sent the patient a [employer] message to advise. Appt scheduled 01/23/24. Thank you, Juanita Jose, [facility] Material Hauler II Centralized Clin[facility] Pharmacy Services ([facility]PS) 01/14/2024,12:32 PM * Telephone Encounter - Ching Varghese [facility] - 01/14/2024 8:43 AM EDTPending Prescriptions: Disp Refills Levothyroxine Sodium 137 MCG Oral Tablet 30 Tab*0 Sig: TAKE 1 TABLET BY MOUTH FIRST THING IN THE MORNING 30 MINUTES PRIOR TO BREAKFAST OR OTHER MEDS * Telephone Encounter - Chnig Varghese [facility] - 01/14/2024 8:41 AM EDT 2nd attempt Unable to authorize medication refills for pended medication(s) at this time. Part of the protocol criteria used for refill authorization was not satisfied. Per refill protocol patient should have routine exam and TSH on file within past year. Reviewed AMPreport, Care Gaps/Health Maintenance, medications list, and for any routine labs typically ordered for this patient. Lab orders placed. Please contact patient to schedule office visit with PRIMARY CARE and advise of labs ordered for blood draw.. Fasting is not required. Advise to obtain labs before his scheduled office visit Visit date not found. Last Visit: 05/23/2021 (in office), Visit date not found (telemedicine) Next Visit: Visit date not found After contacting patient, please forward request to Eder Mittal MD. Thank You, Ching Varghese [facility] Clinical Pharmacist Central[facility] Pharmacy Services ([facility]) [phone] [id number] 01/14/2024, 8:42 AM documented in this encounter Plan of Treatment Upcoming Encounters Date Type Department Care Team (Late st Contact Info) Description 01/23/2024 2:00 PM EDT Office Visit Family Medicine [address] [place] [phone] Lory Garcia PA-C [address] [place] [address] [place] [phone] Scheduled Orders Name Type Priority Associated Diagnoses Orde r Schedule BASIC METABOLIC PANEL Lab Routine Encounter for long-term (current) use of medications Expected: 01/14/2024 (Approximate), Expires: 01/13/2025 VITAMIN B12 Lab Routine Encounter for long-term (current) use of medications Expected: 01/14/2024 (Approximate), Expires: 01/13/2025 Health Maintenance Due Date Last Done Comments [...] Diagnosis Encounter for long-term (current) use of medications- Primary Encounter for long-term (current) use of other medications Acquired hypothyroidism Unspecified hypothyroidism documented in this [...] Advance Directives occurred with: Patient Care Teams Stamp Classifier Relationship Specialty Start Date End Date Eder Mittal MD [address] [place] [address] [place] [id number] PCP - General Family Medicine 12/22/21 documented as of this encounter
--- OUTSIDE RECORDS SUMMARY | 2024-04-10 03:31 | External Medical Summary | Summary of Care ---
Author Name Unknown Organization [facility] Address [address] [facility] [place] [address] Phone [phone] Care Team Providers Care Senior Financial Accountant Name Role Phone Eder Mittal MD Primary Care Provide r Reason for Visit * Reason Comments eRx-Medication Refill Encounter Details Date Type Department Care Team (Late st Contact Info) Description 11/01/2023 Refill Family Practice [facility] [address] [facility] [place] [address] Eder Mittal MD [address] [place] [address] [place] [phone] Acquired hypothyroidism Allergies No known active allergiesdocumented as of this encounter (statuses as of 11/06/2023) Medications Medication Sig Dispensed Refills Start Date [...] Each 3 04/06/20 Active Misc. Devices Passy [place] Valve 2 Each 3 04/06/20 Active Misc. Devices 6.0 shiley non fenestrated inner cannulas 30 Each 6 04/06/20 Active Misc. Devices Trach cleaning kit 8 Each 6 04/06/20 Active Misc. Devices Sig: Modudose 0.9% Sodium Chloride Solution, SHELTER, 5 mL, ampules Disp 1 Box of [...] as of this encounter (statuses as of 11/06/2023) Active Problems Problem Noted Date Diagnosed Date [...] as of this encounter (statuses as of 11/06/2023) Resolved Problems Problem Noted Date Diagnosed Date [...] as of this encounter (statuses as of 11/06/2023) Immunizations Name Administration Dates Next Due COVID-19 mRNA, LNP-s, No Pre serve, 2-Dose Series ([employer]) 05/16/2021,03/07/2021 COVID-19, MRNA-LNP, 23-24, P F, 30 [...] encounter Miscellaneous Notes * Telephone Encounter - Ialuiz, Care Gaps - 11/06/2023 1:33 AM EDT Received message from [facility] regarding patient needing appointment and labs. Patient was notified. Successfully contacted patient and provided [facility] message. * Telephone Encounter - Esther Leong CPhT - 11/05/2023 3:42 PM EDT Received message from [facility] regarding patient needing appointment and labs. Call Placed, Unable to reach pt, as there was no answer and no VM available to leave message. Sent the patient a ulike message to advise. Thank you, Leighann Leong [facility] Loss Prevention Leader II Central[facility] Clinical Pharmacy Services (CCPS) (Formerly Telepharmacy) 11/05/2023,3:42 PM * Telephone Encounter - Janeth Mcclelland [facility] - 11/04/2023 6:42 AM EDTSigned Prescriptions: Disp Refills Levothyroxine Sodium 137 MCG Oral Tablet 30 Tab*0 Sig: TAKE 1 TABLET BY MOUTH FIRST THING IN THE MORNING 30 MINUTES PRIOR TO BREAKFAST OR OTHER MEDS Authorizing Provider: EDER MITTAL Ordering User: JANETH MCCLELLAND * Telephone Encounter - Janeth Mcclelland [facility] - 11/04/2023 6:41 AM EDT [...] Centralized Clinical Pharmacy Services ([facility]PS) (Formerly Telepharmacy) [phone] 11/04/2023, 6:41 AM documented in this encounter [...] Advance Directives occurred with: Patient Care Teams Senior Financial Accountant Relationship Specialty Start Date End Date Eder Mittal MD [address] [place] [address] [place] [phone] PCP - General Family Medicine 12/22/21 documented as of this encounter
--- OUTSIDE RECORDS SUMMARY | 2024-04-10 03:31 | External Medical Summary | Summary of Care ---
Author Name Unknown Organization [facility] Address [address] [place] [address] Phone [phone] Care Team Providers Care Mediator Name Role Phone Eder Mittal MD Primary Care Provide r Reason for Visit * Reason Onset Date Comments Lung Cancer Screening Outreach 12/20/2023 Encounter Details Date Type Department Care Team (Late st Contact Info) Description 12/20/2023 Telephone Thoracic Surg [facility], [place] [address] [place] [address] Caroline Don, RN Lung Cancer Screening Outreach Allergies No known active allergiesdocumented as of this encounter (statuses as of 01/02/2024) Medications Medication Sig Dispensed Refills Start Date [...] Devices Sig: Modudose 0.9% Sodium Chloride Solution, HALF-WAY, 5 mL, ampules Disp 1 Box of [...] THE EVENING 180 Tablet 1 11/04/2023 Active documented as of this encounter (statuses as of 01/02/2024) Active Problems Problem Noted Date Diagnosed Date [...] as of this encounter (statuses as of 01/02/2024) Resolved Problems Problem Noted Date Diagnosed Date [...] as of this encounter (statuses as of 01/02/2024) Immunizations Name Administration Dates Next Due COVID-19 mRNA, LNP-s, No Pre serve, 2-Dose Series ([employer]) 05/16/2021,03/07/2021 COVID-19, MRNA-LNP, 23-24, P F, 30 MCG/0.3 mL, 12 YRS AND ABOVE, IM [email or web address] 04/23/2023 Seasonal Influenza, PF, 6 M & [...] encounter Miscellaneous Notes * Telephone Encounter - Caroline Don RN - 01/02/2024 10:24 AM EDT Lung Cancer Screening Program ([facility]) High Risk Outreach Call Summary 01/02/2024 Through advanced analysis/trending of this patient's history, they have been identified to have a positive Lung flag and are at a higher risk for lung cancer. This advanced analysis estimates the patient's risk for lung cancer. It only indicates that the patient's chances to have this condition are higher compared to most people. It does not indicate that the patient has this condition, but it is highly recommended the patient have a low dose CT screening for further evaluation. I have contacted the patient regarding lung cancer screening. I cannot reach the patient to discuss - letter sent. * Telephone Encounter - Caroline Dno RN - 12/24/2023 2:34 PM EDT Lung Cancer Screening Program ([facility]) High Risk Outreach Call Summary 12/24/2023 Through advanced analysis/trending of this patient's history, they have been identified to have a positive Lung flag and are at a higher risk for lung cancer. This advanced analysis estimates the patient's risk for lung cancer. It only indicates that the patient's chances to have this condition are higher compared to most people. It does not indicate that the patient has this condition, but it is highly recommended the patient have a low dose CT screening for further evaluation. I have contacted the patient regarding lung cancer screening. Unable to Reach Unable to reach. Mailbox full Caroline Don RN * Telephone Encounter - Caroline Don RN - 12/20/2023 12:56 PM EDT Lung Cancer Screening Program ([facility]) High Risk Outreach Call Summary 12/20/2023 Through advanced analysis/trending of this patient's history, they have been identified to have a positive Lung flag and are at a higher risk for lung cancer. This advanced analysis estimates the patient's risk for lung cancer. It only indicates that the patient's chances to have this condition are higher compared to most people. It does not indicate that the patient has this condition, but it is highly recommended the patient have a low dose CT screening for further evaluation. I have contacted the patient regarding lung cancer screening. Unable to reach. Mailbox full Caroline Don RN documented in this encounter Plan of Treatment Health Maintenance [...] Advance Directives occurred with: Patient Care Teams Mediator Relationship Specialty Start Date End Date Eder Mittal MD [address] [place] [address] RAYMON[place] Rao [phone] PCP - General Family Medicine 12/22/21 documented as of this encounter
--- OUTSIDE RECORDS SUMMARY | 2024-04-10 03:31 | External Medical Summary | Summary of Care ---
Author Name Unknown Organization [facility] Address [address] [facility] [place] [address] Phone [phone] Care Team Providers Care Gandy Dancer Name Role Phone Eder Mittal MD Primary Care Provide r Encounter Details Date Type Department Care Team (Late st Contact Info) Description 11/07/2023 Orders Only PATIENT PORTAL DO NOT DELETE THIS DEPT USED BY [place] [id number] Allergies No known active allergiesdocumented as of this encounter (statuses as of 11/07/2023) Medications Medication Sig Dispensed Refills Start Date [...] Each 3 04/06/2021 Active Misc. Devices Passy Abylee Valve 2 Each 3 04/06/2021 Active Misc. [...] Devices Cool mist humidification 1 Each 0 04/06/2021 Active Albuterol Sulfate 1.25 MG/3ML Inhalation Nebulization SolutionIndications :COPD, mild (HCC) Inhale 1.25 mg via nebulizer every 4 hours as needed for Wheezing. 100 mL 1 06/21/2022 Active Fluticasone Propionate 50 MCG/ACT Nasal Suspension (Flonase)Indication s:Sinus pain ADMINISTER 2 SPRAYS INTO EACH NOSTRIL EVERY DAY 48 mL 1 07/12/2022 Active oxygen IN GAS Use 2 L/min(Oxygen) as directed. 0 10/20/2022 Active Hydroxychloroquine Sulfate 200 MG Oral [...] HOURS NEEDED FOR NAUSEA 40 Tablet 0 09/03/2023 Active busPIRone HCl 5 MG Oral [...] BREAKFAST OR OTHER MEDS 30 Tablet 0 11/04/2023 Active Furosemide 20 MG Oral Tablet (Lasix)Indications: Recurrent pleural effusion TAKE 1 TABLET BY MOUTH IN THE MORNING AND IN THE EVENING 180 Tablet 1 11/04/2023 Active documented as of this encounter (statuses as of 11/07/2023) Active Problems Problem Noted Date Diagnosed Date [...] as of this encounter (statuses as of 11/07/2023) Resolved Problems Problem Noted Date Diagnosed Date [...] as of this encounter (statuses as of 11/07/2023) Immunizations Name Administration Dates Next Due COVID-19 mRNA, LNP-s, No Pre serve, 2-Dose Series ([employer]) 05/16/2021,03/07/2021 COVID-19, MRNA-LNP, 23-24, P F, 30 MCG/0.3 mL, 12 YRS AND ABOVE, IM ([employer]) 04/23/2023 Seasonal Influenza, PF, 6 M & [...] filedocumented as of this encounter Advance Directives Latest Code Status [...] Advance Directives occurred with: Patient Care Teams Gandy Dancer Relationship Specialty Start Date End Date Eder Mittal MD [address] [place] [address] RAYMON[place] Rao [phone] PCP - General Family Medicine 12/22/21 documented as of this encounter
--- OUTSIDE RECORDS SUMMARY | 2024-04-10 03:31 | External Medical Summary | Summary of Care ---
Author Name Unknown Organization [facility] Address [address] [place] [address] Phone [phone] Care Team Providers Care Machine Striper Name Role Phone dEer Mittal MD Primary Care Provide r Reason for Visit * Reason Comments eRx-Medication Refill Encounter Details Date Type Department Care Team (Late st Contact Info) Description 11/01/2023 Refill Family Medicine [address] [phone] Uday Springer MD [address] [place] [address] [place] [address] AMEYA (generalized anxiety disorder); Major depressive disorder with single episode, in remission (HCC); Recurrent pleural effusion Allergies No known active allergiesdocumented as of this encounter (statuses as of 11/04/2023) Medications Medication Sig Dispensed Refills Start Date End Date Status albuterol HFA (PROAIR HFA) 108 (90 BASE) MCG/ACT inhaler Inhale 2 Puffs by mouth every 4 hours as needed for Dyspnea. 1 Inhaler 09/19/19 19 Active AMBULATORY MISCELLANEOUS MEDICATION 6.0 [...] NAUSEA 40 Tablet 0 09/03/19 24 Active busPIRone HCl 5 MG [...] 60 Tablet 5 04/23/20 23 024 Discontinued Citalopram Hydrobromide 20 MG Oral Tablet ([employer])Indication s:AMEYA (generalized anxiety disorder),Major depressive disorder with single episode, in remission (HCC) Take 1 Tablet by mouth in the morning. 30 Tablet 5 04/23/20 23 024 Discontinued Furosemide 20 MG Oral Tablet (Lasix)Indications :Recurrent pleural effusion TAKE 1 TABLET BY MOUTH IN THE MORNING AND IN THE EVENING 180 Tablet 1 06/25/19 24 024 Discontinued documented as of this encounter (statuses as of 11/04/2023) Active Problems Problem Noted Date Diagnosed Date [...] as of this encounter (statuses as of 11/04/2023) Resolved Problems Problem Noted Date Diagnosed Date [...] as of this encounter (statuses as of 11/04/2023) Immunizations Name Administration Dates Next Due COVID-19 mRNA, LNP-s, No Pre serve, 2-Dose Series ([employer]) 05/16/2021,03/07/2021 COVID-19, MRNA-LNP, 23-24, P F, 30 [...] Telephone Encounter - Eder Mittal MD - 11/04/2023 7:49 AM EDT Signed Prescriptions: Disp Refills busPIRone HCl 5 MG Oral Tablet (Buspar) 180 Ta*1 Sig: TAKE 1 TABLET BY MOUTH IN THE MORNING AND BEFORE BEDTIME Authorizing Provider: EDER MITTAL Citalopram Hydrobromide 20 MG Oral Tablet *90 Tab*1 Sig: TAKE 1 TABLET BY MOUTH EVERY DAY IN THE MORNING Authorizing Provider: EDER MITTAL Ordering User: JANETH GARAY Furosemide 20 MG Oral Tablet (Lasix) 180 Ta*1 Sig: TAKE 1 TABLET BY MOUTH IN THE MORNING AND IN THE EVENING Authorizing Provider: EDER MITTAL Ordering User: JANETH MCCLELLAND * Telephone Encounter - Janeth Mcclelland RP - 11/04/2023 6:41 AM EDT Pending Prescriptions: Disp Refills busPIRone HCl 5 MG Oral Tablet (Buspar) 180 Ta*1 Sig: TAKE 1 TABLET BY MOUTH IN THE MORNING AND BEFORE BEDTIME Signed Prescriptions: Disp Refills Citalopram Hydrobromide 20 MG Oral Tablet *90 Tab*1 Sig: TAKE 1 TABLET BY MOUTH EVERY DAY IN THE MORNING Authorizing Provider: EDER MITTAL User: JANETH MCCLELLAND Furosemide 20 MG Oral Tablet (Lasix) 180 Ta*1 Sig: TAKE 1 TABLET BY MOUTH IN THE MORNING AND IN THE EVENING Authorizing Provider: EDER MITTAL User: JANETH MCCLELLAND * Telephone Encounter - Janeth Mcclelland RPh - 11/04/2023 6:40 AM EDT Telepharmacy is currently not authorized to approve refills for this class of medication per refillprotocol. Thank you, Janeth Mcclelland, PharmD Staff Pharmacist Refill Call Center [phone] 11/04/2023, 6:40 AM Pending Prescriptions: Disp Refills busPIRone HCl 5 MG Oral Tablet (Buspar) 180 Ta*1 Sig: TAKE 1 TABLET BY MOUTH IN THE MORNING AND BEFORE BEDTIME Signed Prescriptions: Disp Refills Citalopram Hydrobromide 20 MG Oral Tablet *90 Tab*1 Sig: TAKE 1 TABLET BY MOUTH EVERY DAY IN THE MORNING Authorizing Provider: EDER MITTAL User: JANETH MCCLELLAND Furosemide 20 MG Oral Tablet (Lasix) 180 Ta*1 Sig: TAKE 1 TABLET BY MOUTH IN THE MORNING AND IN THE EVENING Authorizing Provider: EDER MITTAL User: JANETH MCCLELLAND Last Visit: 04/23/2023 (in office), Visit date not found (telemedicine) Next Visit: Visit date not found If no future appointments scheduled, and last appointment is greater than a year ago, please schedule patient for a follow-up appointment Last date the medication was ordered: 04/23/23 Pharmacy: [id number] [id number] [facility] Is this request for a controlled substance?No Urine Drug Screen:No results found for this or any previous visit. Patient Phone Numbers Labs: Lab Results Component Value Date/Time CREAT 1.0 01/16/2023 10:56 AM CREAT 1.1 03/12/2017 02:31 PM POTASSIUM 3.6 01/16/2023 10:56 AM POTASSIUM 4.3 03/12/2017 02:31 PM TSH 7.91 (H) 10/06/2022 06:34 AM TSH 2.90 10/09/2018 03:21 PM LDLCALC 57 11/09/2021 12:47 PM LDLCALC 90 10/09/2018 03:21 PM LDLDIRECT NOT APPLICABLE 10/09/2018 03:21 PM ALT 16 01/16/2023 10:56 AM ALT 13 03/12/2017 02:31 PM HGBA1C 5.3 [...] as of this encounter Visit Diagnoses Diagnosis AMEYA (generalized anxiety disorder) Generalized anxiety disorder Major depressive disorder with single episode, in remission (HCC) Recurrent pleural effusion documented in this encounter Advance Directives Latest [...] Advance Directives occurred with: Patient Care Teams Machine Striper Relationship Specialty Start Date End Date Eder Mittal MD [address] [place] [address] [place] Rao [id number] PCP - General Family Medicine 12/22/21 documented as of this encounter
[2024-04-10] MEDS: DOXYCYCLINE HYCLATE 100 MG in DEXTROSE 5% MINI-B 100 ML IV SCH (03:49)
[2024-04-10] MEDS: LEVOTHYROXINE SODIUM 137 MCG TABLET PO SCH (05:45)
[2024-04-10 06:22] LABS: Hematocrit (blood only) 39.7 % (42.0-52.0); Hemoglobin 12.7 g/dl (14.0-18.0); Mean Corpuscular Volume 81.2 fL (80.0-100.0); Mean Platelet Volume 11.1 fL (9.4-12.4); Platelet Count 115 K/uL (130-400); RDW Standard Deviation 52.9 fL (36.4-46.3); Red Blood Count 4.89 M/uL (4.70-6.10); White Blood Count 5.81 K/ul (4.8-10.8)
[2024-04-10 06:36] LABS: BUN Creatinine Ratio 12.3 (10-20); Bilirubin Direct 0.3 mg/dl (0-0.2); Bilirubin,Total 0.9 mg/dl (0.2-1.0); Calcium 9.1 mg/dl (8.6-10.3); Creatinine Clr Calc Pharmacy 111.8 ml/min; Magnesium 1.9 mg/dl (1.7-2.4); Phosphorus 2.8 mg/dl (2.5-4.9); Potassium 3.9 mmol/L (3.5-5.1); Total Protein 7.8 gm/dl (6.0-8.3)
[2024-04-10] MEDS: ACETAMINOPHEN 325 MG TAB PO PRN (09:00)
[2024-04-10] MEDS: ADVANCED PROBIOTIC 625 MG CAPSULE PO SCH (09:01)
[2024-04-10] MEDS: FLUTICASONE PROPIONATE NA SPR 16 GM BTL SCH (09:01)
[2024-04-10] MEDS: predniSONE 20 MG TAB PO SCH (09:01)
[2024-04-10] MEDS: SPIRONOLACTONE 12.5 MG TAB PO SCH (09:02)
[2024-04-10] MEDS: CITALOPRAM 20 MG TAB PO SCH (09:02)
--- NOTE | 2024-04-10 09:03 | CT Scan Report ---
CT chest diagnostic wo con CT DOSE: 687.13 mGy.cm CLINICAL HISTORY: 58 years-old Male with complicated pna. Acute shortness of breath TECHNIQUE: Multiaxial CT images of the chest were performed without contrast. A dose lowering techni que was utilized adhering to the principles of ALARA. COMPARISON: Chest radiograph 04/09/2024 FINDINGS: Tracheostomy cannula in place. Mildly enlarged mediastinal lymph nodes measure up to 10 mm in the paratracheal distributions and 1.3 cm within the subcarinal station. Heart is mildly enlarged. Trace pericardial effusion. Mild coronary artery calcifications. Atherosclerosis of the aorta withou t aneurysm. Pulmonary emphysema with bronchitis and right basilar prominent mucus plugging. No pneumothorax. Scat tered tree-in-bud nodules with bronchovascular distribution of groundglass densities noted bilaterall y, most pronounced in the left. 4 cm subpleural consolidation of the inferior segment lingula on imag e 201. 2.8 cm irregular subpleural consolidation of the right lower lobe on image 164. Right lung vol ume loss with atelectasis. Moderate size right pleural effusion with likely chronic associated pleura l thickening. Mild distal bronchial wall thickening. Cholecystectomy. Hepatic steatosis with mild cirrhosis. No acu te fracture. IMPRESSION: 1. Emphysema with bronchitis, infectious or inflammatory bronchiolitis with mild bronchopneumonia mos t pronounced in the left lung base. 2. Moderate sized right pleural effusion with associated right pleural thickening, likely chronic. 3. There is right lung volume loss with irregular 2.8 cm subpleural consolidation of the right lower lobe favoring round atelectasis. A precautionary three-month follow-up chest CT recommended. 4. Mild mediastinal lymphadenopathy. 5. Tracheostomy cannula in place. 6. Cirrhotic liver. ACT 112: Negative or not required by law. Electronically signed by: Ambrocio Watkins M.D. 04/10/2024 9:02 AM
--- NOTE | 2024-04-10 11:24 | Pulmonary Consultation ---
Date of Consultation April 10, 2024 Assessment & Plan (1) Pneumonia: (2) Pleural effusion: (3) Hypoxia: (4) Acute exacerbation of chronic obstructive pulmonary disease: Plan Impression: 58-year-old male with history of head and neck cancer and COPD as well as cirrhosis and ongoing alcohol abuse presenting now with shortness of breath. CT scan shows some patchy parenchymal infiltrates with a right-sided effusion. Recommendations: 1. Recommend proceeding with therapeutic diagnostic thoracentesis. Fluid will be sent for microbiologic as well as cytologic analysis. Follow-up chest x-ray post procedure. The patient can follow-up with his [facility] pulmonary group for results of the pleural fluid analysis. 2. For the pneumonia, would de-escalate antibiotics to oral Ceftin and azithromycin. This would also be adequate for acute exacerbation of COPD. 3. Acute exacerbation COPD: Agree with prednisone but will decrease to 20 mg a day for 5 days as the patient has minimal bronchospasm currently. Continue albuterol as needed. Will place on a trial of Anoro. Outpatient PFTs and follow-up with [facility] pulmonary recommended. 4. Hypoxemic respiratory failure: Continue supplemental oxygen titrated to keep saturations at or above 88%. The patient has oxygen at home. 5. Pulmonary nodule: Suspect this is rounded atelectasis and correlation with prior films through the [facility] system is recommended. If this is a new finding, follow-up CT scan in 3 months is recommended If the patient's post procedure chest x-ray demonstrates no pneumothorax and the patient is feeling better, he can likely be dismissed from the hospital on outpatient antibiotics and follow-up with [facility] pulmonary Feel free to contact us with questions or concerns History of Present Illness Attending Physician: Idalia Elizalde MD History of Present Illness Asked by hospitalist to assist in evaluation management this patient with scant hemoptysis shortness of breath and pleural effusion. History is obtained from discussion with the patient and review the electronic medical record. Patient is a 58-year-old alcoholic who continues to drink alcoholic beverages on a regular basis. He has a history of head and neck cancer for which he received radiation chemotherapy and tracheostomy. Those details are not entirely available to review. He had a history of pleural effusions and is undergone serial thoracentesis through [facility]. His greens tier is through [facility] as well. He thinks his last thoracentesis was performed a few years ago. He is unaware of the etiology of the effusion and states he was never told why he had a pleural effusion. The patient presented to the emergency room with complaints of shortness of breath which was progressive over 5 or 6 days. Chest x-ray showed a right sided effusion. He was admitted and placed on antibiotics. Overnight the patient states his scant hemoptysis has essentially resolved. He continues to feel short of breath and states that this does feel similar to his prior episodes of lateral effusion. He has not had any trauma. No fevers chills or night sweats. Patient does have oxygen at home. He is intermittently compliant with oxygen therapy. He does feel better when he uses his oxygen. Allergies Allergy/AdvReac Type Severity Reaction Status Date / Time No Known Allergies Allergy Verified 04/09/24 14:00 Home Medications Medication Instructions Recorded Confirmed Type albuterol sulfate 90 mcg/actuation 2 puff inhalation QID PRN SHORT OF 12/30/18 04/09/24 History aerosol inhaler (Ventolin HFA) BREATH levothyroxine 137 mcg tablet 137 mcg PO QAM 12/30/18 04/09/24 History oxycodone-acetaminophen 5 mg-325 1 tab PO Q6H PRN pain #14 tabs 01/15/22 04/09/24 Rx mg tablet (Percocet) albuterol sulfate 1.25 mg/3 mL 1.25 mg inhalation Q4H PRN 05/24/22 04/09/24 History solution for nebulization Shortness Of Breath Or Wheezing buspirone 5 mg tablet 5 mg PO BID 05/24/22 04/09/24 History citalopram 20 mg tablet 20 mg PO QAM 05/24/22 04/09/24 History fluticasone 500 mcg-salmeterol 50 1 inh inhalation BID 05/24/22 04/09/24 History mcg/dose blistr powdr for inhalation fluticasone propionate 50 2 spray intranasal QAM 05/24/22 04/09/24 History mcg/actuation nasal spray,suspension hydroxychloroquine 200 mg tablet 400 mg PO HS 05/24/22 04/09/24 History (Plaquenil) hydroxyzine HCl 50 mg tablet 50 mg PO BID PRN Anxiety 05/24/22 04/09/24 History ondansetron HCl 4 mg tablet 4 mg PO Q8H PRN Nausea 05/24/22 04/09/24 History furosemide 20 mg tablet 20 mg PO BID 04/09/24 04/09/24 History spironolactone 25 mg tablet 12.5 mg PO QAM 04/09/24 04/09/24 History Patient History Medical History Alcohol use disorder Marijuana use Tobacco use disorder Chronic right hip pain Thrombocytopenia Scleroderma on plaquenil Elevated hemoglobin Elevated Hgb/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 Hx of fracture of ankle Lt., no sx. Hypothyroidism Tracheostomy in place D/T THROAT CANCER/TUMOR TREATED WITH CHEMO AND RADIATION (NO SURGERY REQUIRED) 6.0 SHILEY WITH INNER CANNULAS (NO OXYGEN) CANNULA CHANGED EVERY MORNING/NO SUCTION REQUIRED Depression Anxiety Chronic obstructive pulmonary disease Surgical History Hx of cholecystectomy History of esophagogastroduodenoscopy (EGD) History of surgery PEG TUBE INSERTION/REMOVAL History of vascular access device FOR CHEMO TX INSERTION/REMOVAL History of tooth extraction Family History Mother Family history of diabetes mellitus Father Family hx of colon cancer Social History Smoking Status: Former smoker Cigarettes Per Day: 10 PER DAY -advised; Second Hand Exposure: No; Do You Dip or Chew Tobacco: No; Hx Alcohol Use: Yes Alcohol type: beer and hard liquor Hx Substance Use: Yes Last Used Substance Other:: marijuana-12/20; cocaine-"a long time ago" Preferred Language: Angolan Communication Ability: Effective Health Outreach Worker Required: No Beliefs That Will Affect Care: None Current Living Situation: Significant Other Feels Safe at Home: Yes Safety Concerns: Feels Safe At This Time Assistive Devices: Denture - Upper, Denture - Lower and Glasses Review of Systems Review of Systems: Please refer to admission H&P. No additions or deletions Physical Exam Constitutional: WD/WN, vitals as above Neck: Trach site clean dry and intact Respiratory: no respiratory distress, no labored breathing, no cough and not tachypneic Auscultation: + diminished lung sounds Decreased breath sounds with dullness to percussion right lung base. Otherwise no crackles wheezes or rhonchi Cardiovascular: RRR, no murmur, no edema Gastrointestinal (Abdomen): normal bowel sounds, soft, nontender, no hepatosplenomegaly Musculoskeletal: Extremities: extremities normal to inspection Skin: no rashes, warm and dry Neurologic: Nonfocal exam Lymphatic: no cervical lymphadenopathy Results & Data Results & Data Vital Signs (Past 12 Hours) Vital Signs Temp Pulse Pulse Resp BP Pulse Ox O2 Del Method 04/10/24 10:15 67 04/10/24 07:50 36.4 C L 70 16 121/76 88 L Nasal Cannula 04/10/24 07:30 Nasal Cannula 04/10/24 03:02 36.4 C L 70 16 131/83 91 Nasal Cannula 04/09/24 23:45 75 04/09/24 22:20 36.6 C 77 16 134/74 91 Nasal Cannula O2 Flow Rate 04/10/24 10:15 04/10/24 07:50 2 04/10/24 07:30 2 04/10/24 03:02 2 04/09/24 23:45 04/09/24 22:20 3 Critical Care Results & Data Vital Signs (Past 12 Hours) Vital Signs Temp Pulse Pulse Resp BP Pulse Ox O2 Del Method 04/10/24 10:15 67 04/10/24 07:50 36.4 C L 70 16 121/76 88 L Nasal Cannula 04/10/24 07:30 Nasal Cannula 04/10/24 03:02 36.4 C L 70 16 131/83 91 Nasal Cannula 04/09/24 23:45 75 O2 Flow Rate 04/10/24 10:15 04/10/24 07:50 2 04/10/24 07:30 2 04/10/24 03:02 2 04/09/24 23:45 Lab & Micro Results (Past 24 Hours) RBC 4.89 M/uL (4.70-6.10) 04/10/24 WBC 5.81 K/ul (4.8-10.8) 04/10/24 Hgb 12.7 g/dl (14.0-18.0) L 04/10/24 Hct 39.7 % (42.0-52.0) L 04/10/24 MCV 81.2 fL (80.0-100.0) 04/10/24 MCH 26.0 pg (25.0-34.0) 04/10/24 MCHC 32.0 g/dL (32.0-36.0) 04/10/24 RDW Standard Deviation 52.9 fL (36.4-46.3) H 04/10/24 RDW Coefficient of Variation 18.0 % (11.5-14.5) H 04/10/24 Plt Count 115 K/uL (130-400) L 04/10/24 MPV 11.1 fL (9.4-12.4) 04/10/24 Neutrophils (%) (Auto) 80.5 % 04/09/24 Lymphocytes (%) (Auto) 6.2 % 04/09/24 Monocytes # (Auto) 0.84 K/uL (0.11-0.59) H 04/09/24 Eosinophils # (Auto) 0.11 K/uL (0.00-0.50) 04/09/24 Immature Granulocyte % (Auto) 0.3 % 04/09/24 Neutrophils # (Auto) 6.19 K/uL (1.40-6.50) 04/09/24 Lymphocytes # (Auto) 0.48 K/uL (1.20-3.40) L 04/09/24 Monocytes # (Auto) 0.84 K/uL (0.11-0.59) H 04/09/24 Eosinophils # (Auto) 0.11 K/uL (0.00-0.50) 04/09/24 Basophils # (Auto) 0.05 K/uL (0.00-0.20) 04/09/24 Immature Granulocyte # (Auto) 0.02 K/uL (0.01-0.20) 4 Na 132 mmol/L (136-145) L 04/10/24 K 3.9 mmol/L (3.5-5.1) 04/10/24 Cl 97 mmol/L (98-107) L 04/10/24 CO2 26 mmol/L (21-32) 04/10/24 Anion Gap 9 (3-11) 04/10/24 BUN 10 mg/dl (6-23) 04/10/24 Creatinine 0.81 mg/dl (0.6-1.4) 04/10/24 BUN/Creatinine Ratio 12.3 (10-20) 04/10/24 Glu 133 mg/dl (70-99(Fasting)) H 04/10/24 Ca 9.1 mg/dl (8.6-10.3) 04/10/24 Phosphorus Level 2.8 mg/dl (2.5-4.9) 04/10/24 Total Bilirubin 0.9 mg/dl (0.2-1.0) 04/10/24 Direct Bilirubin 0.3 mg/dl (0-0.2) H 04/10/24 AST 13 U/L (13-39) 04/10/24 ALT 7 U/L (7-52) 04/10/24 Alkaline Phosphatase 248 U/L (34-104) H 04/10/24 TP 7.8 gm/dl (6.0-8.3) 04/10/24 Albumin 4.0 gm/dl (3.4-5.0) 04/10/24 Mg 1.9 mg/dl (1.7-2.4) 04/10/24 05:43 Calcium Level 9.1 mg/dl (8.6-10.3) 04/10/24 05:43 Prothromb Time International Ratio 1.1 (0.9-1.1) 04/09/24 12:4 4 Venous Blood pH 7.44 (7.36-7.41) H 04/09/24 12:44 Venous Blood Partial Pressure CO2 50 mmHg (38-50) 04/09/24 12:4 4 Venous Blood Partial Pressure O2 33 mmHg 04/09/24 12:44 Venous Blood HCO3 34 mmol/L 04/09/24 12:44 Venous Blood Base Excess 8.3 mEq/L 04/09/24 12:44 Venous Blood Oxygen Saturation < 60.0 % 04/09/24 12:44 Microbiology 04/09/24 22:40 Gram Stain - Final Sputum, Expectorated Diagnostic Findings (Past 24 Hours) Chest X-Ray 04/09/24 12:17 XR chest 1V portable HISTORY: 58 years-old Male Sepsis COMPARISON: 03/25/2015 TECHNIQUE: AP view of the chest FINDINGS: Interval removal of the right-sided PICC. Stable positioning of the tracheostomy cannula. Mild cardiomegaly. Pulmonary vascular congestion with interstitial coarsening. Lateral right mid lung interstitial opacities. There is a persistent layering right pleural effusion with right basilar predominant consolidation. Resolution of the left pleural effusion with improved left basilar aeration. Bones appear grossly intact. IMPRESSION: 1. Resolution of the previously noted left pleural effusion with improved left basilar consolidation. 2. Cardiomegaly with pulmonary vascular congestion. 3. Persistent layering right pleural effusion with right basilar consolidation. ACT 112: Negative or not required by law. The above report was generated using voice recognition software. It may contain grammatical, syntax or spelling errors. Electronically signed by: Ambrocio Watkins M.D. 04/09/2024 1:[address] 04/10/24 07:20 CT chest diagnostic wo con CT DOSE: 687.13 mGy.cm CLINICAL HISTORY: 58 years-old Male with complicated pna. Acute shortness of breath TECHNIQUE: Multiaxial CT images of the chest were performed without contrast. A dose lowering technique was utilized adhering to the principles of ALARA. COMPARISON: Chest radiograph 04/09/2024 FINDINGS: Tracheostomy cannula in place. Mildly enlarged mediastinal lymph nodes measure up to 10 mm in the paratracheal distributions and 1.3 cm within the subcarinal station. Heart is mildly enlarged. Trace pericardial effusion. Mild coronary artery calcifications. Atherosclerosis of the aorta without aneurysm. Pulmonary emphysema with bronchitis and right basilar prominent mucus plugging. No pneumothorax. Scattered tree-in-bud nodules with bronchovascular distribution of groundglass densities noted bilaterally, most pronounced in the left. 4 cm subpleural consolidation of the inferior segment lingula on image 201. 2.8 cm irregular subpleural consolidation of the right lower lobe on image 164. Right lung volume loss with atelectasis. Moderate size right pleural effusion with likely chronic associated pleural thickening. Mild distal bronchial wall thickening. Cholecystectomy. Hepatic steatosis with mild cirrhosis. No acute fracture. IMPRESSION: 1. Emphysema with bronchitis, infectious or inflammatory bronchiolitis with mild bronchopneumonia most pronounced in the left lung base. 2. Moderate sized right pleural effusion with associated right pleural thickening, likely chronic. 3. There is right lung volume loss with irregular 2.8 cm subpleural consolidation of the right lower lobe favoring round atelectasis. A precautionary three-month follow-up chest CT recommended. 4. Mild mediastinal lymphadenopathy. 5. Tracheostomy cannula in place. 6. Cirrhotic liver. ACT 112: Negative or not required by law. Electronically signed by: Ambrocio Watkins M.D. 04/10/2024 9:02 AM I & O Totals 24 Hours 04/09/24 04/10/24 04/11/24 06:59 06:59 06:59 Intake Total 2150 / 2150 Output Total 125 / 125 Balance 2024 Cumulative 04/09/24 11:56 thru 04/10/24 06:12 Intake Total 2150 Output Total 125 Balance 2024 RT Ventilator Mngmt (Last Documented) Ventilator Ordered Settings Respiratory Rate 16 04/10/24 07:50 Ventilator - PT Measurements Respiratory Rate 16 PG Care Time/CCT Total # of Minutes Spent Total Time Spent with Patient: Total time spent is greater than 50% in coordination of care (as documented) at patient's floor/unit and/or counseling patient: Coding Level of Care Code 74307 IN/OBS CONSULT LVL 4,60M Diagnoses Pneumonia J18.9 Pleural effusion J90 Hypoxia R09.02 Acute exacerbation of chronic obstructive pulmonary disease J44.1
--- NOTE | 2024-04-10 11:26 | Procedure Note ---
Procedure Note Date of Service April 10, 2024 Procedure: Diagnostic therapeutic ultrasound-guided catheter thoracentesis Conveyor Tender: Dr. Olivier Anderson Indication: Pleural effusion Consent: Signed by patient and verified with timeout prior to procedure Anesthesia: 8 mL's 1% lidocaine without epinephrine local. Procedure: Consent was verified and timeout performed. Appropriate imaging studies were reviewed prior to the procedure. Patient was placed in a seated position and limited thoracic ultrasound was performed of the bilateral chest. See separate imaging. Site appropriate for thoracentesis was selected. The skin was prepped and draped in normal sterile fashion. Lidocaine was used for local analgesia. Fluid was aspirated via the finder needle. A small skin gigi was made with the scalpel and the catheter over the needle apparatus was advanced over the rib into the pleural space. Using the syringe one-way valve system, a total of 700 mL's of cloudy brown fluid fluid was removed. Procedure was terminated due to inability to withdraw additional fluid. The catheter was removed and observed to be intact. A sterile dressing was applied. Post procedure chest x-ray was ordered. Fluid was sent for cytology, Gram stain and culture, LDH, pH, total protein, glucose, and cell count differential. The patient tolerated the procedure well without obvious complication [facility] Procedure Codes (Charges) Pulmonary/Thoracic Procedure 1: Pulmonary and Thoracic: 68187 Thoracentesis w imaging Coding CPT Codes Pulmonary/Thoracic - Pulmonary and Thoracic: 36346 Thoracentesis w imaging ([id number]) Additional Codes Date of Service ([email or web address])
--- NOTE | 2024-04-10 12:00 | XRay Report ---
XR chest 1V portable CLINICAL HISTORY: S/P Thoracentesis TECHNIQUE: Single frontal radiograph of the chest was obtained. Comparison: Comparison is made to chest radiograph 04/09/2024 FINDINGS: Tracheostomy tube is seen. The cardiomediastinal silhouette is normal. The lungs are clear. Interval significant decrease in size of right pleural effusion. No evidence of pneumothorax. IMPRESSION: Interval decrease in size of right effusion without pneumothorax. ACT 112: Negative or not required by law. Electronically signed by: Jermain Maria M.D. 04/10/2024 11:58 AM
--- OUTSIDE RECORDS SUMMARY | 2024-04-10 12:35 | External Medical Summary | Summary of Care ---
Author Name Unknown Organization [facility] Address [address] [place] [address] Phone [phone] Care Team Providers Care Helium Arc Welder Name Role Phone Eder Mittal MD Primary Care Provide r Reason for Visit * Reason Comments Acute Pt c/o flu like symp toms x 1 week, concerned about pneumonia, feeling better today. Encounter Details Date Type Department Care Team (Latest Contact Info) Description 04/09/2024 11:00 AM EDT Office Visit Family Medicine [address] [place] [phone] Uday Springer MD [address] [place] [address] [place] [id number] COPD, group D, by GOLD 2017 classification ([facility])*; Hypoxia Allergies No known active allergiesdocumented as of this encounter (statuses as of 04/09/2024) Medications Medication Sig Dispensed Refills Start Date [...] Devices Sig: Modudose 0.9% Sodium Chloride Solution, CORRECTION, 5 mL, ampules Disp 1 Box of [...] BEFORE BEDTIME 18 g 5 03/28/2023 Active Omeprazole 40 MG Oral Capsule Delayed [...] other meds) 90 Tablet 3 03/04/2024 Active Breo Ellipta 200-25 MCG/ACT Inhalation Aerosol Powder Breath Activated (fluticasone furoate-vilanterol) INHALE 1 PUFF BY MOUTH IN THE MORNING 180 Each 1 03/23/2024 Active documented as of this encounter (statuses as of 04/09/2024) Active Problems Problem Noted Date Diagnosed Date [...] trochanteric bursitis, right 05/10/2017 Elevated hemoglobin 03/22/2017 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: T4a, N2c, M0 - Unsigned Overview: well differentiated carcinoma epiglottis Tobacco use disorder documented as of this encounter (statuses as of 04/09/2024) Resolved Problems Problem Noted Date Diagnosed Date [...] as of this encounter (statuses as of 04/09/2024) Immunizations Name Administration Dates Next Due COVID-19 mRNA, LNP-s, No Pre serve, 2-Dose Series (TheraVida) 05/16/2021,03/07/2021 COVID-19, MRNA-LNP, 23-24, P F, 30 MCG/0.3 mL, 12 YRS AND ABOVE, IM (PFIZER-Comirnaty) 04/23/2023 Seasonal Influenza, PF, 6 M & above, IM , (FluLaval or Fluzone) 04/23/2023,04/25/2022,02/23/2021, 0 20,03/22/2017 documented as of this encounter Social History Tobacco Use Types Packs/Day Years Used Date Smoking Tobacco: Former Cigarettes 2 38.3 S tarted: 1992 Smokeless Tobacco: Former Comments:09/17/22 [...] Sign Reading Time Taken Comments Blood Pressure - - Pulse 92 04/09/2024 10:57 AM EDT Temperature - - Respiratory Rate - - Oxygen Saturation 86% 04/09/2024 11: 02 AM EDT O2: 3L/min Inhaled Oxygen Concentration - - Weight 95.7 kg (210 lb 14.4 oz) 024 10:57 AM EDT Height - - Body Mass Index 28.6 01/17/2023 1:26 PM EDT documented in this [...] as of this encounter Progress Notes * Uday Springer MD - 04/09/2024 11:01 AM EDT Evans has been more short of breath than usual, coughing more. No chest pain. He is quite dyspneichere. Sats 84% on room air after walking down saini and did not improve sitting. He got to 88% with 3 liters. Patient Active Problem List Diagnosis Tobacco use disorder Carcinoma of epiglottis (HCC) Elevated hemoglobin (HCC) Major depressive disorder with single episode, in remission (HCC) Greater trochanteric bursitis, right Erythrocytosis AMEYA (generalized anxiety disorder) Alcohol abuse Tracheostomy status (HCC) Acquired hypothyroidism S/P radiation therapy S/P cholecystectomy Anxiety Scleroderma (HCC) Hydropneumothorax Alcoholic cirrhosis of liver without ascites (HCC) Thrombocytopenia (HCC) Hyponatremia History of ETOH abuse Alcohol withdrawal syndrome without complication (HCC) COPD, group D, by GOLD 2017 classification (HCC) 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 COPD (chronic obstructive pulmonary disease) (HCC) Elevated hemoglobin (HCC) 03/22/2017 AMEYA (generalized anxiety disorder) 07/19/2017 Major depressive disorder with single episode, in remission (HCC) 05/10/2017 Pleural effusion Tobacco use disorder Past Surgical History: Procedure Laterality Date ALVEOPLASTY W/ EXTRACTION Bilateral 04/13/2015 ALVEOLOPLASTY IN CONJUNCTION W/EXT - PER QUAD performed by Eduardo Weller DDS at [facility] BRONCHOSCOPY, DIAGNOSTIC N/A 10/28/2015 BRONCHOSCOPY DIAGNOSTIC WITH OR WITHOUT WASHING performed by Min Brandt MD at ENDOS[facility] BRONCHOSCOPY, DIAGNOSTIC N/A 10/12/2022 BRONCHOSCOPY DIAGNOSTIC WITH OR WITHOUT WASHING performed by Timmy Wu MD at [facility] EGD, FLEXIBLE, DIAGNOSTIC 03/23/2015 normal bx, lg , oropharynx mass/[facility] EGD, FLEXIBLE, PLACE GASTRO TUBE 04/12/2015 ESOPHAGOGASTRODUODENOSCOPY (EGD), FLEXIBLE, TRANSORAL, WITH PERCUTANEOUS GASTROSTOMY INSERTION performed by Fanny Kay DO at ENDOS[facility] ISLAND PEDICLE FLAP N/A 04/19/2015 ISLAND PEDICLE FLAP performed by Omer Solares DO at [facility] OPERATIVE LARYNGOSCOPY/BIOPSY N/A 03/09/2016 LARYNGOSCOPY DIRECT WITH BIOPSY performed by Omer Solares DO at [facility] PARTIAL REMOVAL OF PHARYNX N/A 04/19/2015 LIMITED PHARYNGECTOMY performed by Omer Solares DO at [facility] PROCEDURE - GENERAL 01/15/[address] Derrell Nava REMOVAL OF LARYNX, NECK DISSECTION N/A 04/19/2015 LARYNGECTOMY TOTAL WITH RADICAL NECK DISSECTION performed by Omer Solares DO at [facility] SKIN SPLIT GRAFT, FACE/NECK/EARS N/A 04/19/2015 SPLIT GRAFT FACE SCALP ETC LESS THAN 100SQ CM performed by Omer Solares DO at [facility] SURGICAL REMOVAL, ERUPTED TOOTH AND BONE Bilateral 04/13/2015 SURGICAL EXTRACTION ERUPTED TOOTH performed by Eduardo Weller DDS at [facility] THORACOSCOPY, DIAGNOSTIC, LUNGS Right 10/12/2022 THORACOSCOPY DIAGNOSTIC WITHOUT BIOPSY performed by Timmy Wu MD at [facility] Review of patient's allergies indicates: No Known Allergies Social History Socioeconomic History Marital status: Spouse name: Not on file Number of children: Not on file Years of education: Not on file Highest education level: Not on file 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 (Adult - for ages 18 years and over): Not on file Housing Stability: Not on file Current Outpatient Medications Medication Sig Dispense Refill [...] trach 30 Each 3 Misc. Devices [place] Valve 2 Each 3 Misc. Devices 6.0 shiley non fenestrated inner cannulas 30 Each 6 Misc. Devices Trach cleaning kit 8 Each 6 Misc. Devices Sig: Modudose 0.9% Sodium Chloride Solution, CORRECTION, 5 mL, ampules Disp 1 Box of [...] EVENING, AND BEFORE BEDTIME 18 g 5 Omeprazole 40 MG Oral Capsule Delayed Release [...] BY MOUTH EVERY 8 HOURS NEEDED FOR [id number] Tablet 0 busPIRone HCl 5 MG Oral [...] AND IN THE EVENING 180 Tablet 1 Hydroxychloroquine Sulfate 200 MG Oral Tablet (Plaquenil) TAKE 1 TABLET BY MOUTH IN THE MORNING ANDIN THE EVENING 180 Tablet 1 traZODone HCl 50 MG Oral Tablet (Desyrel) Take 1 Tablet by mouth at bedtime. 90 Tablet 1 Levothyroxine Sodium 137 MCG Oral Tablet Take 1 Tablet by mouth daily first thing in the morning. (at least 30 min prior to breakfast or other meds) 90 Tablet 3 Breo Ellipta 200-25 MCG/ACT Inhalation Aerosol Powder Breath Activated (fluticasone furoate-vilanterol) INHALE 1 PUFF BY MOUTH IN THE MORNING 180 Each 1 No current facility-administered medications for this visit. Lab Results Component Value Date/Time TSH - [facility] 0.35 01/23/2024 02:00 PM TSH - [facility] 7.91 (H) 10/06/2022 06:34 AM TSH - [facility] 2.16 11/09/2021 12:47 PM TSH - [facility] 2.90 10/09/2018 03:21 PM TSH - [facility] 2.04 03/12/2017 02:31 PM TSH - [facility] 96.44 (H) 01/09/2017 10:38 AM Results for orders placed or performed in visit on 01/23/24 BASIC METABOLIC PANEL Result Value Ref Range BUN 6 6 - 20 mg/dL CREATININE 1.1 0.6 - 1.2 mg/dL EGFR 76 >=60 mL/min SODIUM 136 135 - 146 mmol/L POTASSIUM 3.7 3.5 - 5.1 mmol/L CHLORIDE 91 (L) 98 - 107 mmol/L CO2 30 22 - 32 mmol/L ANION GAP 15 7 - 15 mmol/L GLUCOSE 89 70 - 120 mg/dL CALCIUM 9.2 8.4 - 10.2 mg/dL CBC Results: Results for orders placed or performed in visit on 01/16/23 CBC Result Value Ref Range WBC 6.23 4.00 - 10.80 K/uL RBC 5.10 4.50 - 5.25 M/uL HGB 14.1 14.0 - 16.8 g/dL HCT 46.3 40.0 - 48.4 % MCV 90.8 82.0 - 99.5 fL MCH 27.6 27.0 - 34.0 pg MCHC 30.5 32.0 - 36.0 g/dL RDW 15.6 11.5 - 15.5 % PLT 103 (L) 140 - 400 K/uL MPV 12.6 6.6 - 11.1 fL nRBCs 0 <=0 /100 WBCs O: Pulse 92, weight 95.7 kg (210 lb 14.4 oz), SpO2 86%. Lungs are tight with inspiratory and expiratory wheezes. Heart regular A: COPD, group D, by GOLD 2017 classification (HCC) (Primary) Hypoxia I strongly suggest ER evaluation. They will drive there, feel like they don't need ambulance Follow Up: Return if symptoms worsen or fail to improve. documented in this encounter Plan of Treatment Upcoming Encounters Date Type Department Care Team (Late st Contact Info) Description 04/22/2024 8:30 AM EDT Cardiac Studies Cardiac Studies [address] [place] [id number] 07/31/2024 2:00 PM EST Office Visit Rheumatology [address] [place] [phone] Alfa Gifford CRNP [address] [place] [address] [place] [address] Health Maintenance Due Date Last Done Comments [...] D, by GOLD 2017 classification (HCC)- Primary Hypoxia Hypoxemia documented in this encounter Advance Directives * [...] Advance Directives occurred with: Patient Care Teams Helium Arc Welder Relationship Specialty Start Date End Date Eder Mittal MD [address] [place] [address] [place] [phone] PCP - General Family Medicine 12/22/21 documented as of this encounter
[2024-04-10 12:48] LABS: Appearance Pleural Fluid Hazy; Basophils, Fluid 1 %; Color Pleural Fluid Amber; Lymphocytes, Fluid 50 %; Mono,Macrophage,Mesothelial 41 %; Neutrophils, Fluid 8 %; RBC Pleural Fluid Auto 20000 /uL; Source Pleural Fluid Right Lung; WBC Pleural Fluid Auto 696 /uL
--- NOTE | 2024-04-10 13:41 | Hospitalist Progress Note ---
Date of Service April 10, 2024 Assessment & Plan (1) Pneumonia: Plan Likely right lower lobe pneumonia Right pleural effusion Possible mild COPD exacerbation Patient comes in with cough with greenish blood-tinged sputum and associated shortness of breath for about a week time, admitting CXR with RLL consolidation and right pleural effusion. Patient needing oxygen continuously lately, generally uses on and off at his baseline. Received Rocephin in the ED, was transition to Rocephin and doxycycline on admission PO Prednisone daily for 5 days, received dexamethasone in the ED. Respiratory BioFire negative. sputum cx pending. admitting blood Cx x1 set pending Consult pulmonology, appreciate recs -transition to Ceftin and azithromycin. QTc currently within acceptable limits, follow with daily EKGs given patient's other QTc prolonging medications -prednisone 20 mg daily for 5 days -Status post thoracentesis on April 10, 2024, follow culture and pleural fluid result Patient will need repeat chest imaging in about 6 weeks time to document resolut ion of pneumonia. currently improving Hypomagnesemia: Magnesium of 1.6 at presentation, replete as needed Abnormal LFT, likely chronic, continue to monitor Other chronic medical conditions: Continue with/resume home meds as and when able. Diet: HH DVT prophylaxis: Heparin subcu DNR/DNI Admission and Anticipated Discharge Date Admission Date: April 09, 2024 Subjective patient was seen sitting up in bed has tracheostomy States that his symptoms have improved post thoracentesis with pulmonology Review of Systems Review of Systems: All systems reviewed & are unremarkable except as noted in Subjective Physical Exam Physical Exam: General: Alert, oriented. No acute distress Psych: Appropriate mood and affect Neuro: No gross deficits HEENT: NC/AT, trach site noted CV: RRR Resp: Breath sounds clear bilaterally, no increased effort of breathing Abdomen: Soft, nontender, nondistended Extremities: No edema in lower extremities bilaterally. Results & Data Results & Data Vital Signs (Past 12 Hours) Vital Signs Temp Pulse Pulse Resp BP Pulse Ox O2 Del Method 04/10/24 11:51 36.3 C L 71 20 157/82 H 91 Nasal Cannula 04/10/24 10:15 67 04/10/24 07:50 36.4 C L 70 16 121/76 88 L Nasal Cannula 04/10/24 07:30 Nasal Cannula 04/10/24 03:02 36.4 C L 70 16 131/83 91 Nasal Cannula O2 Flow Rate 04/10/24 11:51 2 04/10/24 10:15 04/10/24 07:50 2 04/10/24 07:30 2 04/10/24 03:02 2 Diagnostic Findings Chest X-Ray 04/09/24 12:17 XR chest 1V portable HISTORY: 58 years-old Male Sepsis COMPARISON: 03/25/2015 TECHNIQUE: AP view of the chest FINDINGS: Interval removal of the right-sided PICC. Stable positioning of the tracheostomy cannula. Mild cardiomegaly. Pulmonary vascular congestion with interstitial coarsening. Lateral right mid lung interstitial opacities. There is a persistent layering right pleural effusion with right basilar predominant consolidation. Resolution of the left pleural effusion with improved left basilar aeration. Bones appear grossly intact. IMPRESSION: 1. Resolution of the previously noted left pleural effusion with improved left basilar consolidation. 2. Cardiomegaly with pulmonary vascular congestion. 3. Persistent layering right pleural effusion with right basilar consolidation. ACT 112: Negative or not required by law. The above report was generated using voice recognition software. It may contain grammatical, syntax or spelling errors. Electronically signed by: Ambrocio Watkins M.D. 04/09/2024 1:[address] 04/10/24 07:20 CT chest diagnostic wo con CT DOSE: 687.13 mGy.cm CLINICAL HISTORY: 58 years-old Male with complicated pna. Acute shortness of breath TECHNIQUE: Multiaxial CT images of the chest were performed without contrast. A dose lowering technique was utilized adhering to the principles of ALARA. COMPARISON: Chest radiograph 04/09/2024 FINDINGS: Tracheostomy cannula in place. Mildly enlarged mediastinal lymph nodes measure up to 10 mm in the paratracheal distributions and 1.3 cm within the subcarinal station. Heart is mildly enlarged. Trace pericardial effusion. Mild coronary artery calcifications. Atherosclerosis of the aorta without aneurysm. Pulmonary emphysema with bronchitis and right basilar prominent mucus plugging. No pneumothorax. Scattered tree-in-bud nodules with bronchovascular distribution of groundglass densities noted bilaterally, most pronounced in the left. 4 cm subpleural consolidation of the inferior segment lingula on image 201. 2.8 cm irregular subpleural consolidation of the right lower lobe on image 164. Right lung volume loss with atelectasis. Moderate size right pleural effusion with likely chronic associated pleural thickening. Mild distal bronchial wall thickening. Cholecystectomy. Hepatic steatosis with mild cirrhosis. No acute fracture. IMPRESSION: 1. Emphysema with bronchitis, infectious or inflammatory bronchiolitis with mild bronchopneumonia most pronounced in the left lung base. 2. Moderate sized right pleural effusion with associated right pleural thickening, likely chronic. 3. There is right lung volume loss with irregular 2.8 cm subpleural consolidation of the right lower lobe favoring round atelectasis. A precautionary three-month follow-up chest CT recommended. 4. Mild mediastinal lymphadenopathy. 5. Tracheostomy cannula in place. 6. Cirrhotic liver. ACT 112: Negative or not required by law. Electronically signed by: Ambrocio Watkins M.D. 04/10/2024 9:02 AM Chest X-Ray 04/10/24 11:17 XR chest 1V portable CLINICAL HISTORY: S/P Thoracentesis TECHNIQUE: Single frontal radiograph of the chest was obtained. Comparison: Comparison is made to chest radiograph 04/09/2024 FINDINGS: Tracheostomy tube is seen. The cardiomediastinal silhouette is normal. The lungs are clear. Interval significant decrease in size of right pleural effusion. No evidence of pneumothorax. IMPRESSION: Interval decrease in size of right effusion without pneumothorax. ACT 112: Negative or not required by law. Electronically signed by: Jermain Maria M.D. 04/10/2024 11:58 AM
[2024-04-10] MEDS ORDERED: cefTRIAXone SODIUM 2,000 MG/50 ML BAG IV SCH (14:00)
[2024-04-10] MEDS: AZITHROMYCIN 250 MG TAB PO ONE (15:54)
[2024-04-10] MEDS: cefUROXime axetil 500 MG TAB PO SCH (15:54)
[2024-04-11] MEDS: hydrOXYzine HCl 25 MG TAB PO PRN (03:43)
[2024-04-11 07:09] LABS: Basophils # (auto) 0.02 K/uL (0.00-0.20); Basophils % (auto) 0.2 %; Hematocrit (blood only) 39.8 % (42.0-52.0); Hemoglobin 12.4 g/dl (14.0-18.0); Immature Granulocytes # (auto) 0.06 K/uL (0.01-0.20); Immature Granulocytes % (auto) 0.5 %; Lymphocytes # (auto) 0.76 K/uL (1.20-3.40); Lymphocytes % (auto) 5.9 %; Mean Corpuscular Hemoglobin 25.7 pg (25.0-34.0); Mean Corpuscular Hgb Conc 31.2 g/dL (32.0-36.0); Mean Corpuscular Volume 82.6 fL (80.0-100.0); Mean Platelet Volume 11.5 fL (9.4-12.4); Monocytes # (auto) 1.24 K/uL (0.11-0.59); Monocytes % (auto) 9.6 %; Neutrophils % (auto) 83.8 %; Platelet Count 126 K/uL (130-400); RDW Coefficient of Variation 18.3 % (11.5-14.5); Red Blood Count 4.82 M/uL (4.70-6.10); White Blood Count 12.88 K/ul (4.8-10.8)
[2024-04-11 07:32] LABS: Albumin Globulin Ratio 1.1 (0.9-2); Albumin Level 3.8 gm/dl (3.4-5.0); BUN Creatinine Ratio 15.8 (10-20); Bilirubin,Total 0.7 mg/dl (0.2-1.0); Calcium 9.2 mg/dl (8.6-10.3); Creatinine Clr Calc Pharmacy 95.3 ml/min; Globulin 3.4 gm/dl (2.5-4.0); Magnesium 1.8 mg/dl (1.7-2.4); Phosphorus 3.4 mg/dl (2.5-4.9); Total Protein 7.2 gm/dl (6.0-8.3)
[2024-04-11] MEDS: AZITHROMYCIN 250 MG TAB PO SCH (07:33)
[2024-04-11 07:58] VITALS: RESP 16; TEMP 97.5; O2SAT 91
--- NOTE | 2024-04-11 08:17 | Pulmonology Progress Note ---
Date of Service April 11, 2024 Assessment & Plan (1) Pneumonia: (2) Pleural effusion: (3) Hypoxia: (4) Acute exacerbation of chronic obstructive pulmonary disease: Plan Impression: 58-year-old male with history of head and neck cancer and COPD as well as cirrhosis and ongoing alcohol abuse presenting now with shortness of breath. CT scan shows some patchy parenchymal infiltrates with a right-sided effusion. Recommendations: 1. Pleural effusion: Lymphocytic exudate. Await cytology. 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 If the effusion reaccumulate's, consideration for video-assisted thoracoscopic evaluation might be appropriate. 2. Complete course of Ceftin and azithromycin. This would also be adequate for acute exacerbation of COPD. 3. Acute exacerbation COPD: Complete prednisone 20 mg a day for 5 days as the patient has minimal bronchospasm currently. Continue albuterol as needed. Will place on a trial of Anoro. Out[facility]. 4. Hypoxemic respiratory failure: Resolved currently but the patient does have oxygen at home. 5. Pulmonary nodule: Suspect this is rounded atelectasis and correlation with prior films through the [employer] system is recommended. If this is a new finding, follow-up CT scan in 3 months is recommended Patient is stable to dismiss from the hospital from pulmonary standpoint. Pulmonary will sign off. Feel free to contact us with questions or concerns Admission and Anticipated Discharge Date Admission Date: April 09, 2024 Subjective Patient seen and examined. EMR reviewed. Patient feels better postthoracentesis. He feels back to his respiratory baseline. He is not coughing, wheezing, or expectorating phlegm. Review of Systems 2 Review of Systems: All systems reviewed & are unremarkable except as noted in Subjective Physical Exam 2 Constitutional: WD/WN, vitals as above Respiratory: no respiratory distress, no labored breathing, no cough and not tachypneic Auscultation: no diminished lung sounds Cardiovascular: RRR, no murmur, no edema Gastrointestinal (Abdomen): normal bowel sounds, soft, nontender, no hepatosplenomegaly Musculoskeletal: Extremities: extremities normal to inspection Skin: no rashes, warm and dry Lymphatic: no cervical lymphadenopathy Results & Data Results & Data Vital Signs (Past 12 Hours) Vital Signs Temp Pulse Pulse Resp BP BP Pulse Ox 04/11/24 07:57 36.4 C L 60 16 123/82 91 04/11/24 07:16 57 L 04/11/24 04:00 36.6 C 68 18 118/67 93 04/10/24 22:36 36.4 C L 73 18 133/79 90 04/10/24 21:59 72 04/10/24 21:00 O2 Del Method O2 Flow Rate 04/11/24 07:57 Room Air 04/11/24 07:16 04/11/24 04:00 Nasal Cannula 2 04/10/24 22:36 Nasal Cannula, Trach Collar 2 04/10/24 21:59 04/10/24 21:00 Nasal Cannula 2 Laboratory Results 04/11/24 06:44 04/11/24 06:44 Pleural fluid studies: Gram stain and culture negative Cytology pending Cell count, 80% neutrophils, 50% lymphocytes, 1% basophil's, 41% mesothelial cells pH 7.44 Total protein 5.0 LDH 149 Glucose 138 Diagnostic Findings Postthoracentesis chest x-ray demonstrates no significant residual pleural effusion and no evidence of pneumothorax PG Care Time/CCT Total # of Minutes Spent Total Time Spent with Patient: Total time spent is greater than 50% in coordination of care (as documented) at patient's floor/unit and/or counseling patient: Coding Level of Care Code 00365 SUB INP/OBS CARE 2/35MIN Diagnoses Pneumonia J18.9 Pleural effusion J90 Hypoxia R09.02 Acute exacerbation of chronic obstructive pulmonary disease J44.1
--- NOTE | 2024-04-11 12:16 | Discharge Summary ---
Discharge Summary Date of Service April 11, 2024 Principal Dx & Hospital Course #1 = Principal Diagnosis (1) Pneumonia: Plan Pt is a 58yoM with PMHx significant for head and neck cancer status post radiation and chemo/tracheostomy status, COPD, hydropneumothorax, hypothyroidism, alcoholic cirrhosis of liver without ascites, scleroderma, major depressive disorder, AMEYA who presented to the ED with complaints of shortness of breath for 5 to 7 days prior to arrival. Pneumonia Right pleural effusion COPD exacerbation Patient presented with cough with greenish blood-tinged sputum and associated shortness of breath for about a week time Admitting CXR with RLL consolidation and right pleural effusion CT Chest noting "Emphysema with bronchitis, infectious or inflammatory bronchiolitis with mild bronchopneumonia most pronounced in the left lung base. 2. Moderate sized right pleural effusion with associated right pleural thickening, likely chronic. 3. There is right lung volume loss with irregular 2.8 cm subpleural consolidation of the right lower lobe favoring round atelectasis. A precautionary three-month follow-up chest CT recommended. 4. Mild mediastinal lymphadenopathy. 5. Tracheostomy cannula in place. 6. Cirrhotic liver." sputum culture with preliminary moderate normal debbie at time of discharge Blood culture with no growth to date at time of discharge Pleural fluid culture and acid-fast culture pending at time of discharge Patient was not septic Patient needing oxygen continuously lately, generally uses on and off at his baseline. Received Rocephin in the ED, was transitioned to po Rocephin and doxycycline on admission Pulmonology was consulted, recommended/stated the following on discharge. Per Dr Anderson: "58-year-old male with history of head and neck cancer and COPD as well as cirrhosis and ongoing alcohol abuse presenting now with shortness of breath. CT scan shows some patchy parenchymal infiltrates with a right-sided effusion. Recommendations: 1. Pleural effusion: Lymphocytic exudate. Await cytology. Patient should follow-up with his [facility] sales strategy manager for review of final cytology. If the effusion reaccumulate's, consideration for video-assisted thoracoscopic evaluation might be appropriate. 2. Complete course of Ceftin and azithromycin. This would also be adequate for acute exacerbation of COPD. 3. Acute exacerbation COPD: Complete prednisone 20 mg a day for 5 days as the patient has minimal bronchospasm currently. Continue albuterol as needed. Will place on a trial of Anoro. Outpatient PFTs and follow-up with [facility] pulmonary recommended. 4. Hypoxemic respiratory failure: Resolved currently but the patient does have oxygen at home. 5. Pulmonary nodule: Suspect this is rounded atelectasis and correlation with prior films through the [facility] system is recommended. If this is a new finding, follow-up CT scan in 3 months is recommended" Patient was discharged in stable condition with prescriptions for one more day of oral azithromycin and 6 more days of p.o. Ceftin as well as three more days of p.o. prednisone 20 mg daily. Close PCP and pulmonology follow-up after discharge, please ensure follow-up of pending cultures and review of final cytology by [facility] pulmonology Hypomagnesemia Magnesium of 1.6 at presentation repleted as needed Elevated LFTs likely chronic improved during hospitalization PCP follow-up for continued monitoring and further workup Other chronic medical conditions: Continue with/resume home meds Notes For Next Care Provider Per Pulmonology: Patient should follow-up with his [facility] sales strategy manager for review of final cytology. If the effusion reaccumulate's, consideration for video-assisted thoracoscopic evaluation might be appropriate Please ensure follow-up of pending cultures and review of final cytology by [facility] pulmonology Outpatient PFTs and follow-up with [facility] pulmonary recommended. "Pulmonary nodule: Suspect this is rounded atelectasis and correlation with prior films through the [employer] system is recommended. If this is a new finding, follow-up CT scan in 3 months is recommended" Per Radiology: A precautionary three-month follow-up chest CT recommended. Medication Changes From Visit Azithromycin 500 mg daily for 1 more dose Ceftin 500 mg twice daily for 11 more doses Prednisone 20mg daily for 3 more days Admission HPI Per Admitting Provider 58-year-old male with PMH of head and neck cancer status post radiation and chemo/tracheostomy status, COPD, hydropneumothorax, hypothyroidism, alcoholic cirrhosis of liver without ascites, scleroderma, major depressive disorder, AMEYA presented to the ED with complaint of shortness of breath for 5 to 7 days, has been gradually worsening, does not generally need oxygen at home but has been utilizing oxygen continuously lately, associated with cough for about same duration productive of greenish blood-tinged sputum. Patient denies choking on food, denies sore throat. Patient denies fever/chest pain/palpitation/belly pain/nausea/vomiting/headache/dizziness. Patient reports weakness. Patient reports no acute changes in his appetite and bladder or bladder habits. Patient reports quitting smoking 10 years ago, reports drinking 3 beers a day [reports last drink was about 6-day ago], reports using/smoking marijuana daily. Medications reviewed with the patient in detail at bedside. Plan of care discussed with the patient in detail, he voiced understanding. DNR/DNI as per my discussion with the patient. Admission Exam Per Admitting Provider GENERAL: Alert and oriented x3. NAD, on 2L NC O2, HEENT: No pallor, no icterus. Pupils equal, round and reactive to light. Oral mucosa moist. Trach collar in place. NECK: No JVD, no neck masses. HEART: S1 and S2 heard. Regular rate and rhythm. No murmur, no gallop. RESPIRATORY SYSTEM: Normal AP diameter. No accessory muscle use. No wheezing, occasional rhonci b/l, rll crackles. ABDOMEN: Soft, bowel sounds present, nontender, no distention. CENTRAL NERVOUS SYSTEM: No facial droop. Speech is clear. Obeys simple commands. Moves extremities. EXTREMITIES: No edema, no erythema seen. Discharge Exam General: Alert, oriented. No acute distress Psych: Appropriate mood and affect Neuro: No gross deficits HEENT: NC/AT, trach site noted CV: RRR Resp: Breath sounds coarse bilaterally, no increased effort of breathing Abdomen: Soft, nontender, nondistended Extremities: No edema in lower extremities bilaterally. Updated Medication List Medication Instructions Recorded Confirmed Type albuterol sulfate 90 mcg/actuation 2 puff inhalation QID PRN SHORT OF 12/30/18 04/09/24 History aerosol inhaler (Ventolin HFA) BREATH levothyroxine 137 mcg tablet 137 mcg PO QAM 12/30/18 04/09/24 History oxycodone-acetaminophen 5 mg-325 1 tab PO Q6H PRN pain #14 tabs 01/15/22 04/09/24 Rx mg tablet (Percocet) albuterol sulfate 1.25 mg/3 mL 1.25 mg inhalation Q4H PRN 05/24/22 04/09/24 History solution for nebulization Shortness Of Breath Or Wheezing buspirone 5 mg tablet 5 mg PO BID 05/24/22 04/09/24 History citalopram 20 mg tablet 20 mg PO QAM 05/24/22 04/09/24 History fluticasone 500 mcg-salmeterol 50 1 inh inhalation BID 05/24/22 04/09/24 History mcg/dose blistr powdr for inhalation fluticasone propionate 50 2 spray intranasal QAM 05/24/22 04/09/24 History mcg/actuation nasal spray,suspension hydroxychloroquine 200 mg tablet 400 mg PO HS 05/24/22 04/09/24 History (Plaquenil) hydroxyzine HCl 50 mg tablet 50 mg PO BID PRN Anxiety 05/24/22 04/09/24 History ondansetron HCl 4 mg tablet 4 mg PO Q8H PRN Nausea 05/24/22 04/09/24 History furosemide 20 mg tablet 20 mg PO BID 04/09/24 04/09/24 History spironolactone 25 mg tablet 12.5 mg PO QAM 04/09/24 04/09/24 History azithromycin 500 mg tablet 500 mg PO DAILY #1 tab 04/11/24 Rx cefuroxime axetil 500 mg tablet 500 mg PO BID #11 tabs 04/11/24 Rx prednisone 20 mg tablet 20 mg PO DAILY #3 tabs 04/11/24 Rx Hospital Stay Data Consultations 04/09/24 14:51 ED Decision to Admit Stat 04/09/24 15:07 Consult Pulmonology Routine Diagnostic Imagining Performed 04/10/24 07:20 CT chest diagnostic wo con Urgent Chest X-Ray 04/09/24 12:17 XR chest 1V portable HISTORY: 58 years-old Male Sepsis COMPARISON: 03/25/2015 TECHNIQUE: AP view of the chest FINDINGS: Interval removal of the right-sided PICC. Stable positioning of the tracheostomy cannula. Mild cardiomegaly. Pulmonary vascular congestion with interstitial coarsening. Lateral right mid lung interstitial opacities. There is a persistent layering right pleural effusion with right basilar predominant consolidation. Resolution of the left pleural effusion with improved left basilar aeration. Bones appear grossly intact. IMPRESSION: 1. Resolution of the previously noted left pleural effusion with improved left basilar consolidation. 2. Cardiomegaly with pulmonary vascular congestion. 3. Persistent layering right pleural effusion with right basilar consolidation. ACT 112: Negative or not required by law. The above report was generated using voice recognition software. It may contain grammatical, syntax or spelling errors. Electronically signed by: Ambrocio Watkins M.D. 04/09/2024 1:[address] 04/10/24 07:20 CT chest diagnostic wo con CT DOSE: 687.13 mGy.cm CLINICAL HISTORY: 58 years-old Male with complicated pna. Acute shortness of breath TECHNIQUE: Multiaxial CT images of the chest were performed without contrast. A dose lowering technique was utilized adhering to the principles of ALARA. COMPARISON: Chest radiograph 04/09/2024 FINDINGS: Tracheostomy cannula in place. Mildly enlarged mediastinal lymph nodes measure up to 10 mm in the paratracheal distributions and 1.3 cm within the subcarinal station. Heart is mildly enlarged. Trace pericardial effusion. Mild coronary artery calcifications. Atherosclerosis of the aorta without aneurysm. Pulmonary emphysema with bronchitis and right basilar prominent mucus plugging. No pneumothorax. Scattered tree-in-bud nodules with bronchovascular distribution of groundglass densities noted bilaterally, most pronounced in the left. 4 cm subpleural consolidation of the inferior segment lingula on image 201. 2.8 cm irregular subpleural consolidation of the right lower lobe on image 164. Right lung volume loss with atelectasis. Moderate size right pleural effusion with likely chronic associated pleural thickening. Mild distal bronchial wall thickening. Cholecystectomy. Hepatic steatosis with mild cirrhosis. No acute fracture. IMPRESSION: 1. Emphysema with bronchitis, infectious or inflammatory bronchiolitis with mild bronchopneumonia most pronounced in the left lung base. 2. Moderate sized right pleural effusion with associated right pleural thickening, likely chronic. 3. There is right lung volume loss with irregular 2.8 cm subpleural consolidation of the right lower lobe favoring round atelectasis. A precautionary three-month follow-up chest CT recommended. 4. Mild mediastinal lymphadenopathy. 5. Tracheostomy cannula in place. 6. Cirrhotic liver. ACT 112: Negative or not required by law. Electronically signed by: Ambrocio Watkins M.D. 04/10/2024 9:02 AM Chest X-Ray 04/10/24 11:17 XR chest 1V portable CLINICAL HISTORY: S/P Thoracentesis TECHNIQUE: Single frontal radiograph of the chest was obtained. Comparison: Comparison is made to chest radiograph 04/09/2024 FINDINGS: Tracheostomy tube is seen. The cardiomediastinal silhouette is normal. The lungs are clear. Interval significant decrease in size of right pleural effusion. No evidence of pneumothorax. IMPRESSION: Interval decrease in size of right effusion without pneumothorax. ACT 112: Negative or not required by law. Electronically signed by: Jermain Maria M.D. 04/10/2024 11:58 AM Discharge Instructions Given to Patient (Per Discharging Provider) Evans, You were seen and treated for a pneumonia and acute exacerbation of your COPD. You were seen by the sales strategy manager who recommends discharge home. Please continue with the prescribed antibiotics Ceftin and azithromycin. You are due for 1 more dose of the azithromycin tomorrow and continue with the Ceftin for about another 6 days. We are also discharging you home on oral prednisone for 3 more days. Please take it as prescribed. You also had a procedure done called a thoracentesis to remove fluid. Please follow-up with your primary care provider and sales strategy manager for the results of that fluid after testing. Please keep close follow-up with your sales strategy manager after discharge. Please also keep close follow up with your primary care provider after discharge. Please do not hesitate to come back to the emergency room if your symptoms worsen or return. It was a pleasure taking care of you while you were here. Total Time Total Time Spent Total Time Spent (In Minutes): 65
[2024-04-11 13:47] VITALS: BP 133/79
[2024-04-11 14:04] VITALS: PULSE 75
== END 2024-04-11 14:55 | disposition home or self-care (01) | DRG 193 ==
LOC: ED 11:56 → SUATTDRO 15:07 → 2W 15:07